=== PATIENT | female | born 1955 | race Caucasian/White ===

== ENCOUNTER 2020-02-09 14:34 | Outpatient (CLI) | payer MEDICARE, SELFPAY ==
--- NOTE | ~2020-02-09 | CT_ITS ---
EXAMINATION: CT abdomen pelvis wo con EXAM DATE: 02/09/2020 14:59 INDICATION: Abdominal pain. TECHNIQUE: Spiral CT of the abdomen and pelvis was performed without contrast. Axial, coronal and s agittal images were reviewed. The dose-length product (DLP) for this examination was 169.48 mGy-cm. The exposure was tailored according to patient size (auto mA exposure control), and iterative recons truction (ASIR) was used as additional dose reduction technique. Comparison is made to prior examinat ion from 08/09/2003. FINDINGS: The liver, spleen, adrenal glands and pancreas are unremarkable. There are cholecystectom y clips. Right kidney midpole hilar calcification measuring 7 x 3 mm, probably nephrolithiasis. There is no hydronephrosis. The uterus is not identified and has likely been surgically resected. The abel dder is collapsed at time of imaging limiting evaluation. There is no retroperitoneal or pelvic lymp hadenopathy. There is mild scattered arteriosclerotic disease. The appendix is normal. The stomach and small bowel are unremarkable. There is expected amount of c olonic stool. No free intraperitoneal gas. The heart is normal in size. There is trace pericardia l effusion. The lung bases are unremarkable. There are no osteoblastic or osteolytic lesions identi fied. IMPRESSION: 1. No acute intra-abdominal findings. 2. Right nephrolithiasis. Reviewed, dictated and finalized at location A. [facility]
== END 2020-02-09 14:35 | disposition home or self-care (01) ==
LOC: ANHIMG 14:43
PROVIDERS: PCP Family Medicine; Visit Provider Internal Medicine Gastroenterology
DX: R10.9 Unspecified abdominal pain (principal); N20.0 Calculus of kidney
CPT/HCPCS: 74176

== ENCOUNTER 2020-02-12 01:53 | Outpatient (CLI) | payer MEDICARE, SELFPAY ==
[2020-02-12 20:00] LABS: SARS-CoV-2 RNA PCR Negative
== END 2020-02-12 01:54 | disposition home or self-care (01) ==
LOC: ANHCOVIDDT 01:54
PROVIDERS: PCP Family Medicine; Visit Provider Internal Medicine Gastroenterology
DX: Z01.818 Encounter for other preprocedural examination (principal); Z20.828 Contact with and (suspected) exposure to other viral communicable diseases
CPT/HCPCS: 87635; C9803; U0003

== ENCOUNTER → 2020-02-15 08:08 | Day surgery (SDC) | payer MEDICARE, SELFPAY ==
[2020-02-08 14:57] VITALS: BMI 17.5
--- NOTE | 2020-02-15 08:30 | WPDANESEPPF ---
Anes - Initial Pre Proc Eval Procedure: Operation Date: 02/15/20 10:00 Proposed Procedures p Esophagogastroduodenoscopy - Aakash Hays MD Date/Time: 02/15/20 08:30 Surgeon: Aakash Hays MD Pre Op Diagnosis: Dysphagia Patient Data Age: 64 Gender: F Height: 1.57 m Weight: 43.5 kg Allergies Allergy/AdvReac Type Severity Reaction Status Date / Time Sulfa (Sulfonamide Allergy Intermediate Itching Verified 02/08/20 14:56 Antibiotics) Penicillins Allergy Mild Hives Verified 02/08/20 14:56 adhesive tape Allergy Unknown Blister Verified 02/08/20 14:56 erythromycin base Allergy Unknown Nausea Verified 02/08/20 14:56 levofloxacin Allergy Unknown Hives Verified 02/08/20 14:56 prednisone AdvReac Unknown DOUBLE Verified 02/08/20 14:56 VISION WITH CORTICOSTEROIDS promethazine AdvReac Unknown Hallucinati Verified 02/08/20 15:10 ng Contrast Media Allergy Unknown Hives / Uncoded 02/08/20 14:56 Red Face Home Medications Medication Instructions Recorded Confirmed Type citalopram [Celexa] 40 mg PO DAILY 02/08/20 02/08/20 History Patient hx anesthesia problems: none Family hx anesthesia problems: none PMFSH Past Medical History Medical History (Updated 02/15/20 @ 08:34 by Iftikhar Nolen MD) Anxiety Chronic pancreatitis Family History Family History (System 02/08/20 @ 11:03 by Bernadette Bennett) Father Hypertension Mother Family history of malignant neoplasm of breast in first degree relative Social History Social History (System 02/08/20 @ 11:03 by Bernadette Bennett) Smoking status: Never smoker Alcohol intake: unknown Substance use: unknown Substance use type: does not use Living arrangements: with family Spiritual care concerns: No Anes - Eval Final PreProcedure Day of Procedure 02/15/20 08:30 Patient weight: cachectic Heart: regular rate and rhythm Lungs: clear to auscultation and normal air movement Airway: Mallampati scale class II Neurological: alert and oriented Last oral intake: >/= 8 hours ASA classification: III Emergent: no Anesthetic plan: proceed Anesthesia type and monitoring: general GIVS Informed Consent: The patient's anesthetic plan and its attendant risks and benefits were discussed with the patient/family/POA. Questions were solicited and answers provided to the satisfaction of the patient/family/POA.
[2020-02-15 09:14] VITALS: BP 124/58; PULSE 73; RESP 16; TEMP 36.1; O2SAT 100
--- NOTE | 2020-02-15 09:29 | WPDGICN ---
Assessment and Plan Assessment and plan (1) Chronic pancreatitis: Code(s): K86.1 - Other chronic pancreatitis Status: Acute Assessment and Plan: Patient has a history of chronic pancreatitis. Apparently has a history of a sphincterotomy. Symptoms appear to improve on Creon however she cannot afford this medication pancreatic enzymes would be beneficial if there is a way for her to obtain. (2) Dysphagia: Code(s): R13.10 - Dysphagia, unspecified Status: Acute Assessment and Plan: Patient has difficulty swallowing she reports in the summer had esophageal web in gastritis. plan for EGD to assess for recurrent narrowing of the esophagus. (3) LUQ abdominal pain: Code(s): R10.12 - Left upper quadrant pain Status: Acute Assessment and Plan: Patient has left upper quadrant pain worse with eating but better with Creon suggesting pancreatitis. Agree with continuing proton pump inhibitor because of history of GE reflux. Plan is for EGD at this S and exclude gastritis or ulcer disease. (4) GERD (gastroesophageal reflux disease): Code(s): K21.9 - Gastro-esophageal reflux disease without esophagitis Status: Acute Assessment and Plan: Patient has a history of GE reflux status post fundoplication which was revised in 2017. Because of her dysphagia and ongoing pain an EGD will be performed. Further recommendations will be given after endoscopy. GI Consult Note Consult date/time: 02/15/20 09:29 HPI: Shae South is a 64 year old female Presents for evaluation of difficulty swallowing and left upper quadrant pain. Patient has a rather extensive past medical history. She complains of severe left upper quadrant pain described as burning after eating somewhat severe were symptoms over the last 6 months. She also complains of difficulty swallowing. Will food will hang up in the mid substernal portion of the chest this happens more often with solids than liquids. She denies any heartburn. Her past medical history is significant that in March of 2000 had apparently had a perforation of some sort after an ERCP apparently had a sphincterotomy. She is known since 2007 to have had a acid reflux fundoplication which required revision twice most recently 2016. She has an ongoing history of GE reflux. Previous endoscopy performed elsewhere in the summer we revealed gastritis and a distal esophageal web. Patient has been prescribed Creon she states this helps her pain however she does not take it because it is too expensive. At home murmur medications include Protonix 40 mg p.o. b.i.d. supplement with Carafate. She also takes Celexa and Benadryl. Her family history is noncontributory. Patient presents today for EGD to assess swallowing difficulty in left upper quadrant abdominal pain. Review of Systems Review of Systems: All systems reviewed & are unremarkable except as noted in HPI and below PMFSH Past Medical History Medical History Anxiety Chronic pancreatitis Family History Family History (System 02/08/20 @ 11:03 by Bernadette Bennett) Father Hypertension Mother Family history of malignant neoplasm of breast in first degree relative Social History Social History (System 02/08/20 @ 11:03 by Bernadette Bennett) Smoking status: Never smoker Alcohol intake: unknown Substance use: unknown Substance use type: does not use Living arrangements: with family Spiritual care concerns: No Meds Home Medications and Allergies Home Medications Medication Instructions Recorded Confirmed Type citalopram [Celexa] 40 mg PO DAILY 02/08/20 02/15/20 History alprazolam 0.25 mg PO PRN PRN 02/15/20 02/15/20 History zolpidem 10 mg PO HS 02/15/20 02/15/20 History Allergies Allergy/AdvReac Type Severity Reaction Status Date / Time Sulfa (Sulfonamide Allergy Intermediate Itc
[2020-02-15] MEDS: LACTATED RINGERS 1,000 ML 150 ML IV CONT (09:33)
[2020-02-15] MEDS: BENZOCAINE (*SP) 60 ML SPRAY CAN (HURRICAINE) 1 SPRAY MUCOUS MEM (09:40)
[2020-02-15] MEDS: SIMETHICONE ORAL SUSPENSION 20 MG/0.3 ML 30 ML BOTTLE 0.6 ML IRRIGATION (09:42)
[2020-02-15 09:48] VITALS: BP 78/41; PULSE 71; RESP 22; O2SAT 92
[2020-02-15 09:58] VITALS: BP 84/44; PULSE 67; RESP 20; O2SAT 98
[2020-02-15 10:08] VITALS: BP 101/67; PULSE 67; RESP 20; O2SAT 98
== END ==
PROVIDERS: PCP Family Medicine; Visit Provider Internal Medicine Gastroenterology
PROC: 0DJ08ZZ Inspection of Upper Intestinal Tract, Via Natural or Artificial Opening Endoscopic (ICD-10-PCS; CPT 43235; principal; 2020-02-15 10:00)
DX: R13.10 Dysphagia, unspecified (principal); K21.9 Gastro-esophageal reflux disease without esophagitis; F41.9 Anxiety disorder, unspecified; K86.1 Other chronic pancreatitis; R64 Cachexia; Z68.1 Body mass index [BMI] 19.9 or less, adult; R10.12 Left upper quadrant pain; Z98.84 Bariatric surgery status
CPT/HCPCS: 43239; 43450; 87081; J2704; J7120

== ENCOUNTER 2021-12-21 01:48 | Day surgery (SDC) | payer MEDICARE, SELFPAY ==
[2021-12-15 10:46] VITALS: BMI 17.4
[2021-12-21 10:18] VITALS: BP 125/70; PULSE 74; RESP 18; O2SAT 100
--- NOTE | 2021-12-21 10:27 | WPDHPUPDATE1 ---
History and Physical Update Update Date/Time: 12/21/21 10:27 History and Physical has been reviewed, including an updated exam of the patient. There are NO changes in the patient's condition. Risks, benefits, and alternatives have been discussed and questions answered. Patient agrees to proceed with procedure.
[2021-12-21] MEDS: LACTATED RINGERS 1,000 ML 150 ML IV CONT (10:34)
--- NOTE | 2021-12-21 11:33 | WPDANESEPPF ---
Anes - Initial Pre Proc Eval Procedure: Operation Date: 12/21/21 12:15 Proposed Procedures p Esophagogastroduodenoscopy & Colonoscopy - Aakash Hays MD Date/Time: 12/21/21 11:33 Surgeon: Aakash Hays MD Pre Op Diagnosis: iron deficient anemia Patient Data Age: 66 Gender: F Height: 1.57 m Weight: 43.7 kg Allergies Allergy/AdvReac Type Severity Reaction Status Date / Time Iodinated Contrast Media Allergy Severe Swelling Verified 12/21/21 10:35 of Lip/Tongue/Throat levofloxacin Allergy Severe Swelling Verified 12/15/21 10:51 of Lip/Tongue/Throat adhesive tape Allergy Intermediate Blister Verified 12/15/21 10:51 Penicillins Allergy Intermediate Hives Verified 12/15/21 10:51 Sulfa (Sulfonamide Allergy Intermediate Itching Verified 12/15/21 10:51 Antibiotics) erythromycin base AdvReac Intermediate Nausea Verified 12/15/21 10:51 gabapentin AdvReac Intermediate Nausea and Verified 12/15/21 10:51 Vomiting promethazine AdvReac Intermediate Hallucinati Verified 12/15/21 10:51 ng Contrast Media Allergy Severe Swelling Uncoded 12/15/21 10:51 of Lip/Tongue/Throat Home Medications Medication Instructions Recorded Confirmed Type citalopram 40 mg tablet (Celexa) 40 mg PO DAILY 02/08/20 12/15/21 History sodium sul 1.479 gram-potas ch See Rx Instructions PO PER PKG DIR 11/29/21 12/15/21 Rx 0.188 gram-magnes sul 0.225 gram #24 tabs tablet (Sutab) albuterol sulfate 90 mcg/actuation 2 inh inhalation Q4H PRN Shortness 12/15/21 12/15/21 History aerosol inhaler Of Breath Or Wheezing alprazolam 0.5 mg tablet 0.25 mg PO QID PRN Anxiety 12/15/21 12/15/21 History diphenhydramine HCl 25 mg capsule 50 mg PO HS PRN Allergy Symptoms 12/15/21 12/15/21 History (Benadryl) doxepin 6 mg tablet 6 mg PO HS 12/15/21 12/15/21 History ibuprofen 800 mg tablet 800 mg PO Q6H PRN Pain 12/15/21 12/15/21 History lidocaine 5 % topical patch 1 patch topical Q8H PRN Pain 12/15/21 12/15/21 History ondansetron 8 mg disintegrating 8 mg PO Q8H PRN Nausea 12/15/21 12/15/21 History tablet pantoprazole 40 mg tablet,delayed 40 mg PO DAILY 12/15/21 12/15/21 History release prednisone 10 mg tablets in a dose 0 mg PO PER PKG DIR 12/15/21 12/15/21 History pack umeclidinium 62.5 mcg-vilanterol 2 inh inhalation QAM 12/15/21 12/15/21 History 25 mcg/actuation powdr for inhalation (Anoro Ellipta) Patient hx anesthesia problems: none Family hx anesthesia problems: none Results Review: All pre-operative results and documents have been reviewed as part of the pre-operative evaluation. [facility] Past Medical History Medical History Anxiety Chronic pancreatitis Family History Family History Father Hypertension Mother Family history of malignant neoplasm of breast in first degree relative Social History Social History Smoking packs per day: 0.5 Smoking cigarettes per day: 10.0 Years smoked: 30 Smoking pack-years: 15.00 Smoking status: Former smoker Alcohol intake: unknown Substance use: never Substance use type: does not use Living arrangements: with family Spiritual care concerns: No Anes - Eval Final PreProcedure Day of Procedure 12/21/21 11:33 Patient weight: normal Heart: regular rate and rhythm Lungs: clear to auscultation Airway: Mallampati scale class II Neurological: alert and oriented Last oral intake: >/= 8 hours ASA classification: III Emergent: no Anesthetic plan: proceed Anesthesia type and monitoring: general GIVS and standard monitoring Results Review: All pre-operative results and documents have been reviewed as part of the pre-operative evaluation. Informed Consent: The patient's anesthetic plan and its attendant risks and benefits were discussed with deven
--- NOTE | 2021-12-21 12:32 | SUR.OPER ---
EGD: [id number] COLON START: 1242
[2021-12-21 13:02] VITALS: BP 114/63; PULSE 71; RESP 19; O2SAT 100
[2021-12-21 13:12] VITALS: BP 121/77; PULSE 69; RESP 14; O2SAT 100
[2021-12-21 13:22] VITALS: BP 136/78; PULSE 66; RESP 16; O2SAT 100
== END 2021-12-21 13:30 | disposition home or self-care (01) ==
PROVIDERS: Visit Provider Internal Medicine Gastroenterology
PROC: 0DJ08ZZ Inspection of Upper Intestinal Tract, Via Natural or Artificial Opening Endoscopic (ICD-10-PCS; CPT 43235; principal; 2021-12-21 12:15)
DX: D50.9 Iron deficiency anemia, unspecified (principal); Z98.84 Bariatric surgery status; F41.9 Anxiety disorder, unspecified; Z79.51 Long term (current) use of inhaled steroids; Z87.891 Personal history of nicotine dependence
CPT/HCPCS: 45378; 43239; 88305; J2704; J7120

== ENCOUNTER 2022-06-21 14:47 | Outpatient (CLI) | payer MEDICARE, SELFPAY ==
--- NOTE | ~2022-06-21 | CT_ITS ---
EXAMINATION: CT abdomen pelvis wo con DATE: 06/21/2022 15:09 INDICATION: Left upper quadrant abdominal pain. TECHNIQUE: Computed tomography (CT) of the abdomen and pelvis was performed without intravenous contr ast. Automated exposure control and iterative reconstruction technique were employed. The dose-length product was 172.10 mGy-cm. COMPARISON: CT abdomen and pelvis 02/09/2020 FINDINGS: The visualized portions of the lung bases demonstrate mild atelectasis and mild chronic anthony g disease. No pleural effusion. The heart size is normal. There is a small pericardial effusion. Ther e is a small sliding hiatal hernia. The liver is normal. There are changes of cholecystectomy. The sp nicole is normal. There are changes of antrectomy and gastrojejunostomy. There is marked distention of the stomach. There is distention of the proximal duodenum with transition point at the midline. The p ancreas, adrenal glands, and right kidney are normal. There is a 2 mm stone in left kidney. The appen nayana is not visualized. There are no pathologically enlarged lymph nodes. There is no free intraperito lizbeth fluid. There are changes of anterior and posterior fusion procedures at L4-L5. There is a chroni c compression fracture of L2 with changes of vertebroplasty. There are compression fractures of T10 a nd T11 with 1/5 loss of height. IMPRESSION: 1. Antrectomy and gastrojejunostomy with marked distention of the stomach. 2. Small sliding hiatal hernia. 3. Distention of the proximal duodenum, which may be seen with SMA syndrome. 4. Small pericardial effusion. 5. Age-indeterminate compression fractures of T10 and T11, new from 02/09/2020. Reviewed, dictated and finalized at location E.
[2022-06-21 15:40] LABS: Basophils Absolute Auto 0.1 K/mm3 (0.0-0.1); Basophils Percent Auto 1.1 % (0.2-1.2); Eosinophils Percent Auto 0.1 % (0-4.4); Hematocrit 37.5 % (37.0-47.0); Immature Granulocyte Absolute 0.05 K/mm3 (0.00-0.031); Immature Granulocyte Percent A 0.6 % (0-0.5); Lymphocytes Absolute Auto 1.73 K/mm3 (0.9-3.2); Lymphocytes Percent Auto 22.1 % (18.3-44.2); Mean Corpuscular HGB Conc 29.3 g/dl (32-36); Mean Corpuscular Hemoglobin 33.4 pg (26-34); Mean Platelet Volume 10.2 fl (7.4-10.4); Monocytes Absolute Auto 0.4 K/mm3 (0.1-0.6); Monocytes Percent Auto 5.5 % (2.6-8.5); Neutrophils Absolute Auto 5.5 K/mm3 (1.3-6.7); Neutrophils Percent Auto 70.6 % (45.5-73.1); Nucleated Red Blood Cells Perc 0.3 % (0.0-0.2); Platelet Count Result 304 k/mm3 (150-375); Red Blood Count 3.29 M/mm3 (4.2-5.4); Red Cell Distribution Width 17.9 % (11.5-14.5); White Blood Count 7.8 K/mm3 (4.5-10.0)
[2022-06-21 15:47] LABS: Alanine Aminotransferase 17 U/L (6-35); Albumin Level 3.7 g/dL (3.5-5.1); Alkaline Phosphatase 70 U/L (38-126); Amylase 78 U/L (30-110); Aspartate Amino Transferase 21 U/L (14-36); Bilirubin,Total 0.4 mg/dL (0.2-1.3); Lipase 260 U/L (23-300)
[2022-06-21 16:24] LABS: Anisocytosis 1+ (NORMAL); Hypochromasia 1+ (NORMAL); Macrocytosis 1+ (NORMAL); Ovalocytes 1+ (NORMAL); Platelet Estimate Adequate (Adequate); Schistocytes None Seen (NORMAL)
== END 2022-06-21 14:48 | disposition home or self-care (01) ==
PROVIDERS: Visit Provider Internal Medicine Gastroenterology
DX: K86.1 Other chronic pancreatitis (principal); K44.9 Diaphragmatic hernia without obstruction or gangrene; I31.39 Other pericardial effusion (noninflammatory); M48.54XA Collapsed vertebra, not elsewhere classified, thoracic region, initial encounter for fracture; Z90.3 Acquired absence of stomach [part of]; Z98.890 Other specified postprocedural states
CPT/HCPCS: 36415; 74176; 80076; 82150; 83690; 85025

== ENCOUNTER 2022-07-09 09:33 | Day surgery (SDC) | payer MEDICARE, SELFPAY ==
[2022-06-25 09:50] VITALS: BMI 17.4
[2022-06-27 10:21] VITALS: BMI 16.1
--- NOTE | 2022-07-09 09:01 | WPDANESEPPF ---
Anes - Initial Pre Proc Eval Procedure: Operation Date: 07/09/22 11:30 Proposed Procedures p Esophagogastroduodenoscopy - Aakash Hays MD Date/Time: 07/09/22 09:01 Surgeon: Aakash Hays MD Pre Op Diagnosis: AB.Findings on Diagnostic Imaging, LUQ Pain Patient Data Age: 66 Gender: F Height: 1.57 m Weight: 40 kg Allergies Allergy/AdvReac Type Severity Reaction Status Date / Time Iodinated Contrast Media Allergy Severe Swelling Verified 07/09/22 10:59 of Lip/Tongue/Throat levofloxacin Allergy Severe Swelling Verified 07/09/22 10:59 of Lip/Tongue/Throat adhesive tape Allergy Intermediate Blister Verified 07/09/22 10:59 Penicillins Allergy Intermediate Hives Verified 07/09/22 10:59 Sulfa (Sulfonamide Allergy Intermediate Itching Verified 07/09/22 10:59 Antibiotics) erythromycin base AdvReac Intermediate Nausea Verified 07/09/22 10:59 gabapentin AdvReac Intermediate Nausea and Verified 07/09/22 10:59 Vomiting metoclopramide [From Reglan] AdvReac Intermediate Other Verified 07/09/22 10:59 promethazine AdvReac Intermediate Hallucinati Verified 07/09/22 10:59 ng Contrast Media Allergy Severe Swelling Uncoded 07/09/22 10:59 of Lip/Tongue/Throat Home Medications Medication Instructions Recorded Confirmed Type citalopram 40 mg tablet (Celexa) 40 mg PO DAILY 02/08/20 06/27/22 History albuterol sulfate 90 mcg/actuation 2 inh inhalation Q4H PRN Shortness 12/15/21 06/27/22 History aerosol inhaler Of Breath Or Wheezing alprazolam 0.5 mg tablet 0.25 mg PO QID PRN Anxiety 12/15/21 06/27/22 History diphenhydramine HCl 25 mg capsule 50 mg PO HS PRN Allergy Symptoms 12/15/21 06/27/22 History (Benadryl) ibuprofen 800 mg tablet 800 mg PO Q6H PRN Pain 12/15/21 06/27/22 History lidocaine 5 % topical patch 1 patch topical Q8H PRN Pain 12/15/21 06/27/22 History ondansetron 8 mg disintegrating 8 mg PO Q8H PRN Nausea 12/15/21 06/27/22 History tablet pantoprazole 40 mg tablet,delayed 40 mg PO DAILY #90 tabs 05/25/22 06/27/22 Rx release acarbose 25 mg tablet 25 mg PO TID 06/13/22 06/27/22 History oxycodone-acetaminophen 5 mg-325 1 tablet PO Q6H PRN Pain, Severe 06/13/22 06/27/22 History mg tablet (Percocet) fluticasone fur. 100 mcg-umeclid inhalation 06/27/22 06/27/22 History 62.5 mcg-vilant 25 mcg inhalat.powder (Trelegy Ellipta) zaleplon 5 mg capsule 5 mg PO HS 06/27/22 06/27/22 History Patient hx anesthesia problems: none Family hx anesthesia problems: none Results Review: All pre-operative results and documents have been reviewed as part of the pre-operative evaluation. [facility] Past Medical History Medical History (Updated 07/09/22 @ 09:03 by Gabe Jay DO) Anxiety Asthma Chronic pancreatitis Chronic, continuous use of opioids opiates GERD (gastroesophageal reflux disease) ANTONIO (iron deficiency anemia) SLE (systemic lupus erythematosus related syndrome) Surgical History Surgical History (Updated 07/09/22 @ 09:03 by Gabe Jay DO) History of Camille fundoplication History of partial gastrectomy Family History Family History Father Hypertension Mother Family history of malignant neoplasm of breast in first degree relative Social History Social History Smoking packs per day: 0.05 Smoking cigarettes per day: 1.0 Years smoked: 30 Smoking pack-years: 1.50 Smoking status: Former smoker Tobacco type: cigarettes Alcohol intake: never Substance use: never Substance use type: does not use Living arrangements: alone Spiritual care concerns: No Anes - Eval Final PreProcedure Day of Procedure 07/09/22 09:01 Patient weight: normal Heart: regular rate and rhythm Lungs: clear to auscultation and normal air movement Airway: Mallampati scale class II Neurological: alert and or
--- NOTE | 2022-07-09 10:53 | PM.HPGS ---
History of Present Illness History of Present Illness Consent: Risks, benefits, and alternatives have been discussed and questions answered. Patient agrees to proceed with procedure. Chief complaint: AB.Findings on Diagnostic Imaging, LUQ Pain Narrative: Shae South is a 66 year old female Presents for EGD. Patient has left upper quadrant pain. She complains of excess gas and flatus. Along with belching. She has a history of rather significant extensive surgery on the pancreas in upper GI tract. Previously felt to have chronic pancreatitis on this basis. After being seen in the office [address] scan imaging was performed which revealed dilatation of the stomach and proximal duodenum. For this reason patient presents today for EGD. Patient has been on a soft to liquid diet in the to has felt some improvement on this. Family history is noncontributory. Review of Systems Review of Systems: Review of systems noncontributory. [facility] Past Medical History Medical History (Updated 07/09/22 @ 09:03 by Gabe Jay DO) Anxiety Asthma Chronic pancreatitis Chronic, continuous use of opioids opiates GERD (gastroesophageal reflux disease) ANTONIO (iron deficiency anemia) SLE (systemic lupus erythematosus related syndrome) Surgical History Surgical History (Updated 07/09/22 @ 09:03 by Gabe Jay DO) History of Camille fundoplication History of partial gastrectomy Family History Family History Father Hypertension Mother Family history of malignant neoplasm of breast in first degree relative Social History Social History Smoking packs per day: 0.05 Smoking cigarettes per day: 1.0 Years smoked: 30 Smoking pack-years: 1.50 Smoking status: Former smoker Tobacco type: cigarettes Alcohol intake: never Substance use: never Substance use type: does not use Living arrangements: alone Spiritual care concerns: No Meds Home Medications and Allergies Home Medications Medication Instructions Recorded Confirmed Type citalopram 40 mg tablet (Celexa) 40 mg PO DAILY 02/08/20 06/27/22 History albuterol sulfate 90 mcg/actuation 2 inh inhalation Q4H PRN Shortness 12/15/21 06/27/22 History aerosol inhaler Of Breath Or Wheezing alprazolam 0.5 mg tablet 0.25 mg PO QID PRN Anxiety 12/15/21 06/27/22 History diphenhydramine HCl 25 mg capsule 50 mg PO HS PRN Allergy Symptoms 12/15/21 06/27/22 History (Benadryl) ibuprofen 800 mg tablet 800 mg PO Q6H PRN Pain 12/15/21 06/27/22 History lidocaine 5 % topical patch 1 patch topical Q8H PRN Pain 12/15/21 06/27/22 History ondansetron 8 mg disintegrating 8 mg PO Q8H PRN Nausea 12/15/21 06/27/22 History tablet pantoprazole 40 mg tablet,delayed 40 mg PO DAILY #90 tabs 05/25/22 06/27/22 Rx release acarbose 25 mg tablet 25 mg PO TID 06/13/22 06/27/22 History oxycodone-acetaminophen 5 mg-325 1 tablet PO Q6H PRN Pain, Severe 06/13/22 06/27/22 History mg tablet (Percocet) fluticasone fur. 100 mcg-umeclid inhalation 06/27/22 06/27/22 History 62.5 mcg-vilant 25 mcg inhalat.powder (Trelegy Ellipta) zaleplon 5 mg capsule 5 mg PO HS 06/27/22 06/27/22 History Allergies Allergy/AdvReac Type Severity Reaction Status Date / Time Iodinated Contrast Media Allergy Severe Swelling Verified 06/27/22 10:09 of Lip/Tongue/Throat levofloxacin Allergy Severe Swelling Verified 06/27/22 10:09 of Lip/Tongue/Throat adhesive tape Allergy Intermediate Blister Verified 06/27/22 10:09 Penicillins Allergy Intermediate Hives Verified 06/27/22 10:09 Sulfa (Sulfonamide Allergy Intermediate Itching Verified 06/27/22 10:09 Antibiotics) erythromycin base AdvReac Intermediate Nausea Verified 06/27/22 10:09 gabapentin AdvReac Intermediate Nausea and Verified 06/27/22 10:09 Vomiting metoclopramide [Fro
[2022-07-09 11:05] VITALS: BP 98/54; PULSE 64; RESP 16; TEMP 36.7; O2SAT 100; BMI 16.5
[2022-07-09] MEDS: LACTATED RINGERS 1,000 ML 150 ML IV CONT (11:30)
[2022-07-09 11:54] VITALS: BP 88/53; PULSE 85; RESP 16; O2SAT 100
[2022-07-09 12:04] VITALS: BP 102/66; PULSE 59; RESP 16; O2SAT 99
[2022-07-09 12:14] VITALS: BP 111/67; PULSE 60; RESP 18; O2SAT 99
--- NOTE | 2022-07-09 12:38 | WPDANESPN ---
Anes - Prog Note Post-Op Date/Time: 07/09/22 12:38 Cardiovascular status: normal Respiratory status: normal Airway patency: baseline Mental status: baseline Post-Op hydration status: normal Vital Signs: Last Vital Signs Temp 36.7 C 07/09/22 11:05 Pulse 60 07/09/22 12:14 Resp 18 07/09/22 12:14 BP 111/67 07/09/22 12:14 Pulse Ox 99 07/09/22 12:14 O2 Del Method Room Air 07/09/22 12:14 Pain Score (VAS): 0 I/O: Intake & Output 07/08/22 07/09/22 07/09/22 23:59 07:59 15:59 Intake Total 250 Balance 250 Post-procedural complaints: none Patient Feedback: Patient satisfied with anesthetic care. Other Findings: Patient vital signs back to baseline. Patient denies nausea and vomiting. Patient's pain under control. Patient OK for discharge.
== END 2022-07-09 12:31 | disposition home or self-care (01) ==
PROVIDERS: Visit Provider Internal Medicine Gastroenterology
PROC: 0DJ08ZZ Inspection of Upper Intestinal Tract, Via Natural or Artificial Opening Endoscopic (ICD-10-PCS; CPT 43235; principal; 2022-07-09 11:30)
DX: R93.89 Abnormal findings on diagnostic imaging of other specified body structures (principal)
CPT/HCPCS: 43239

== ENCOUNTER 2022-07-20 09:31 | Outpatient (CLI) | payer MEDICARE, SELFPAY ==
--- NOTE | ~2022-07-20 | XR_ITS ---
EXAMINATION: XR UGI w small bowel DATE: 07/20/2022 12:10 INDICATION: Postprandial abdominal pain and bloating. Abnormal findings on diagnostic exam. Status po st gastrectomy. TECHNIQUE: The patient drank thin barium. Conventional supine abdomen radiographs and fluoroscopic sp ot radiographs of the esophagus, stomach and small bowel immediately distal to the gastrojejunal anas tomosis were obtained. Additional overhead radiographs were obtained during the transit through the s mall bowel. Spot fluoroscopic images of the small bowel were obtained upon contrast reaching the cec um. Fluoroscopy exposure time was minutes. A total of 7 overhead radiographs and an 114 fluoroscopic images were recorded. COMPARISON: None. FINDINGS: The esophagus is normal without mass or stricture. Esophageal motility is normal. There is a small sl iding-type hiatal hernia with gastroesophageal junction proximally 4 cm above the level of the diaphr agm with adjacent small surgical clip at the thoracic outlet. Postoperative change of prior partial g astrectomy. There is a patent gastrojejunal anastomosis with rapid transit of contrast across the kenisha stomosis into the small bowel. There was no gastroesophageal reflux with provocative maneuvers. Trans it time from the stomach to proximal colon was approximately 90 minutes. There is normal caliber and mucosal fold pattern throughout the small bowel. Terminal ileum is normal. No tethering or abnormal mass effect observed upon the small bowel with real-time fluoroscopy. Cholecystectomy clips in right upper quadrant. L2 compression fracture with change of prior vertebroplasty. L4-L5 instrumented anter ior and posterior spinal fusion with interbody fusion device and bilateral vertical génesis and pedicle s crew fixation. IMPRESSION: 1. Postoperative change of prior gastrectomy with no evident strictures identified at the gastrojejun al anastomosis. 2. Small sliding-type hiatal hernia. No observed gastroesophageal reflux with provocative maneuvers. 3. No evident bowel obstruction with normal caliber of the small bowel throughout and normal transit time of 90 minutes to the colon. Reviewed, dictated and finalized at location A. IMPRESSION: 1. Postoperative change of prior gastrectomy with no evident strictures identif ied at the gastrojejunal anastomosis. 2. Small sliding-type hiatal hernia. No observed gastroesophageal reflux with p rovocative maneuvers. 3. No evident bowel obstruction with normal caliber of the small bowel througho ut and normal transit time of 90 minutes to the colon.
== END 2022-07-20 09:32 | disposition home or self-care (01) ==
PROVIDERS: Visit Provider Internal Medicine Gastroenterology
DX: R91.8 Other nonspecific abnormal finding of lung field (principal); K44.9 Diaphragmatic hernia without obstruction or gangrene
CPT/HCPCS: 74240; 74248

== ENCOUNTER 2022-09-27 15:24 | Outpatient (CLI) | payer MEDICARE, SELFPAY ==
--- NOTE | ~2022-09-27 | MR_ITS ---
EXAMINATION: MR thoracic spine wo con DATE: 09/27/2022 16:03 INDICATION: Posttraumatic mid to low back pain TECHNIQUE: Magnetic resonance imaging (MRI) of the thoracic spine was performed without intravenous c ontrast. Sagittal localizer T1-weighted FSE of the cervicothoracic spine was obtained. Thoracic spine sequences included sagittal T2-weighted FSE, sagittal T1-weighted SE, Sagittal T2-weighted FS FSE, a nd axial T2-weighted FSE. COMPARISON: None FINDINGS: Alignment is normal. Chronic superior endplate compression fractures at T9, T10, T11 and L2 with 20% anterior to central vertebral body height loss and with change of prior vertebroplasty at L2. All makayla ear unchanged when compared with CT dated 06/21/2022. T1 and T2 hyperintense hemangioma at T6. No path ologic marrow replacing process. Disc heights are normal. Small central disc protrusion at T2-T3 and T4-T5 and minimal disc bulges at T8-T9 through T10-T11, all resulting in only negligible central moncho l stenosis. Mild to moderate multilevel bilateral thoracic facet osteoarthritis which contributes to mild neural foraminal stenosis at a few levels primarily in the lower thoracic spine from T8-T9 to T1 0-T11. There is normal spinal cord signal. The conus terminates at L1. Paravertebral soft tissues are unremarkable. IMPRESSION: 1. No interval change in chronic mild compression fractures at T9-T11 and with change of prior verteb roplasty at L2. Line 2. Mild thoracic spondylosis. Reviewed, dictated and finalized at location A. IMPRESSION: 1. No interval change in chronic mild compression fractures at T9-T11 and with change of prior vertebroplasty at L2. Line 2. Mild thoracic spondylosis.
== END 2022-09-27 15:25 ==
LOC: MICIMG 15:25
PROVIDERS: PCP Physician Assistant; Visit Provider Physician Assistant
DX: M80.08XA Age-related osteoporosis with current pathological fracture, vertebra(e), initial encounter for fracture (principal); M47.814 Spondylosis without myelopathy or radiculopathy, thoracic region
CPT/HCPCS: 72146

== ENCOUNTER 2023-08-21 15:24 | Emergency (ER) | payer MEDICARE, SELFPAY ==
--- NOTE | ~2023-08-21 | CT_ITS ---
CT abdomen pelvis wo con Ordering provider: Talon Clifford MD History: 67 years Female with . R flank pain . Comparison: June 21, 2022 Technique: CT abdomen and pelvis without IV and without oral contrast. Automated exposure control and iterative reconstruction technique were employed. The dose-length product was 175.28 mGy-cm. Findings: VISUALIZED LOWER CHEST: Dependent atelectatic changes. UPPER ABDOMINAL ORGANS: Liver: Normal. Gallbladder: Status post cholecystectomy. Spleen: Normal. Stomach/duodenum: Slightly thickened wall of the stomach. Further evaluation advised. Postoperative c hanges in the area of the stomach. Pancreas: Normal. Adrenals: Normal. Kidneys: Tiny Stone seen in the right kidney midpole. The left kidney is unremarkable. Both ureters a re unremarkable. PELVIC ORGANS: The bladder is normal. BOWEL AND MESENTERY: Colon: Slightly thickened wall of the rectum and sigmoid colon thickened wall of the cecum. Fecal mat erial is seen in the colon. No evidence of appendicitis. Small Bowel: Normal. No obstruction. Peritoneum/mesentery: No free air or free fluid. No mesenteric lymphadenopathy. RETROPERITONEUM: Mild atheromatous disease of the abdominal aorta. No retroperitoneal lymphadenopat hy. MUSCULOSKELETAL: Superficial soft tissues: The superficial soft tissues are normal. Bones: Age appropriate degenerative changes of the spine. Postoperative changes at the level of L4-L5 , with vertebroplasty in L2 IMPRESSION: 1. Tiny stone in the right kidney midpole. 2. No definite stones in the left kidney with no hydronephrotic changes or definite ureteric stones bilaterally. 3. Constipation 4. Slightly thickened wall of the stomach. Reviewed, dictated and finalized at location A. IMPRESSION: 1. Tiny stone in the right kidney midpole. 2. No definite stones in the left kidney with no hydronephrotic changes or def inite ureteric stones bilaterally. 3. Constipation 4. Slightly thickened wall of the stomach.
[2023-08-21 15:27] VITALS: BP 113/72; PULSE 108; RESP 18; TEMP 36.4; O2SAT 99
--- NOTE | 2023-08-21 16:18 | ED.FEMALEGU ---
HPI - Female Genitourinary General Chief complaint: Urogenital-Female Stated complaint: UTI Time Seen by Provider: 08/21/23 15:51 History of Present Illness HPI Narrative: Patient is a 67-year-old female who presents to the emergency department this afternoon complaining of dysuria for the past 4 days approximately. Patient admits that she gets frequent UTI and although triage note states the patient is recently for additional antibiotic, she is denying was for me at this time. Patient cannot remember when her last urinary tract infection was. She is also complaining of right flank pain and admits to history of kidney stones. She denies any chest pain or shortness of breath, any abdominal pain, and denies any additional symptoms or concerns at this time. Related Data Home Medications Medication Instructions Recorded Confirmed citalopram 40 mg tablet (Celexa) 40 mg PO DAILY 02/08/20 06/27/22 albuterol sulfate 90 mcg/actuation 2 inh inhalation Q4H PRN Shortness 12/15/21 06/27/22 aerosol inhaler Of Breath Or Wheezing alprazolam 0.5 mg tablet 0.25 mg PO QID PRN Anxiety 12/15/21 06/27/22 diphenhydramine HCl 25 mg capsule 50 mg PO HS PRN Allergy Symptoms 12/15/21 06/27/22 (Benadryl) ibuprofen 800 mg tablet 800 mg PO Q6H PRN Pain 12/15/21 06/27/22 lidocaine 5 % topical patch 1 patch topical Q8H PRN Pain 12/15/21 06/27/22 ondansetron 8 mg disintegrating 8 mg PO Q8H PRN Nausea 12/15/21 06/27/22 tablet acarbose 25 mg tablet 25 mg PO TID 06/13/22 06/27/22 oxycodone-acetaminophen 5 mg-325 1 tablet PO Q6H PRN Pain, Severe 06/13/22 07/09/22 mg tablet (Percocet) fluticasone fur. 100 mcg-umeclid inhalation 06/27/22 62.5 mcg-vilant 25 mcg inhalat.powder (Trelegy Ellipta) zaleplon 5 mg capsule 5 mg PO HS 06/27/22 06/27/22 guaifenesin 600 mg tablet, 600 mg PO Q12H 07/09/22 07/09/22 extended release 12 hr (Mucinex) Allergies Allergy/AdvReac Type Severity Reaction Status Date / Time Iodinated Contrast Media Allergy Severe Swelling Verified 07/09/22 10:59 of Lip/Tongue/Throat levofloxacin Allergy Severe Swelling Verified 07/09/22 10:59 of Lip/Tongue/Throat adhesive tape Allergy Intermediate Blister Verified 07/09/22 10:59 Penicillins Allergy Intermediate Hives Verified 07/09/22 10:59 Sulfa (Sulfonamide Allergy Intermediate Itching Verified 07/09/22 10:59 Antibiotics) erythromycin base AdvReac Intermediate Nausea Verified 07/09/22 10:59 gabapentin AdvReac Intermediate Nausea and Verified 07/09/22 10:59 Vomiting metoclopramide [From Reglan] AdvReac Intermediate Other Verified 07/09/22 10:59 promethazine AdvReac Intermediate Hallucinati Verified 07/09/22 10:59 ng Contrast Media Allergy Severe Swelling Uncoded 07/09/22 10:59 of Lip/Tongue/Throat Review of Systems Review of Systems: All systems are reviewed and are negative unless stated otherwise in the HPI. [facility] Past Medical History Medical History Anxiety Asthma Chronic pancreatitis Chronic, continuous use of opioids opiates GERD (gastroesophageal reflux disease) ANTONIO (iron deficiency anemia) SLE (systemic lupus erythematosus related syndrome) Surgical History Surgical History History of Camille fundoplication History of partial gastrectomy Family History Family History Father Hypertension Mother Family history of malignant neoplasm of breast in first degree relative Social History Social History Smoking packs per day: 0.05 Smoking cigarettes per day: 1.0 Years smoked: 30 Smoking pack-years: 1.50 Smoking status: Former smoker Tobacco type: cigarettes Alcohol intake: never Substance use: never Substance use type: does not use Living arrangements: alone Spiritual care
[2023-08-21 16:51] LABS: Appearance Urine Clear (Clear); Bacteria Urine None Seen /hpf; Bilirubin Urine Negative (Negative); Blood Urine Negative (Negative); Color Urine Dark Yellow (Yellow); Glucose Urine UA Negative (Negative); Hyaline Casts Urine Present /lpf; Ketones Urine Trace mg/dL (Negative); Leukocyte Esterase Ur Trace LEU/UL (Negative); Nitrate Urine Negative (Negative); Non Pathogenic Casts >20; Protein Urine 1+ mg/dL (Negative); RBC Urine 0-2 /hpf (0-2); Specific Grav Ur 1.035 (1.001-1.035); Squamous Epithelial Cell Urine Occasional /hpf (Few)
[2023-08-21 16:51] LABS: Basophils Absolute Auto 0.1 K/mm3 (0.0-0.1); Eosinophils Percent Auto 0.1 % (0-4.4); Hematocrit 42.7 % (37.0-47.0); Hemoglobin 13.1 g/dL (12.0-15.0); Immature Granulocyte Absolute 0.03 K/mm3 (0.00-0.031); Immature Granulocyte Percent A 0.3 % (0-0.5); Lymphocytes Absolute Auto 1.52 K/mm3 (0.9-3.2); Lymphocytes Percent Auto 15.8 % (18.3-44.2); Mean Corpuscular HGB Conc 30.7 g/dl (32-36); Mean Corpuscular Hemoglobin 30.7 pg (26-34); Mean Platelet Volume 10.2 fl (7.4-10.4); Monocytes Absolute Auto 0.3 K/mm3 (0.1-0.6); Monocytes Percent Auto 3.4 % (2.6-8.5); Neutrophils Absolute Auto 7.6 K/mm3 (1.3-6.7); Neutrophils Percent Auto 79.4 % (45.5-73.1); Nucleated Red Blood Cells Perc 0.3 % (0.0-0.2); Platelet Count Result 281 k/mm3 (150-375); Red Blood Count 4.27 M/mm3 (4.2-5.4); Red Cell Distribution Width 17.2 % (11.5-14.5); White Blood Count 9.6 K/mm3 (4.5-10.0)
[2023-08-21 16:52] LABS: Add Urine Microscopic? YES
[2023-08-21] MEDS: SODIUM CHLORIDE 0.9% IV 1,000 ML 999 ML IV CONT (16:56)
[2023-08-21 17:01] LABS: Alanine Aminotransferase 16 U/L (6-35); Albumin Level 4.4 g/dL (3.5-5.1); Alkaline Phosphatase 67 U/L (38-126); Anion Gap 10 mmol/L (4-12); Aspartate Amino Transferase 25 U/L (14-36); Bilirubin,Total 0.7 mg/dL (0.2-1.3); Blood Urea Nitrogen 23 mg/dL (7-17); Calcium 8.8 mg/dL (8.4-10.2); Carbon Dioxide 20 mmol/L (22-30); Chloride 114 mmol/L (98-107); Estimated CRCL calculation 31 ml/min; Estimated Glomerular Filt Rate 55; Glucose 119 mg/dL (65-110); Lactic Acid Reflex 2.3 mmol/L (0.7-2.0); Potassium 3.7 mmol/L (3.4-5.0); Sodium 144 mmol/L (137-145)
[2023-08-21] MEDS: PHENAZOPYRIDINE HCL 100 MG TABLET 200 MG PO (18:45)
[2023-08-21 18:49] VITALS: BP 103/69; PULSE 86; RESP 16; O2SAT 98
[2023-08-21 19:48] LABS: Reflex Lactic Acid Yes or No Add Lactic
== END 2023-08-21 18:56 | disposition home or self-care (01) ==
PROVIDERS: Emergency Provider Emergency Medicine; PCP Family Medicine
DX: N39.0 Urinary tract infection, site not specified (principal); J45.909 Unspecified asthma, uncomplicated; D50.9 Iron deficiency anemia, unspecified; M32.9 Systemic lupus erythematosus, unspecified; K86.1 Other chronic pancreatitis; K21.9 Gastro-esophageal reflux disease without esophagitis; F41.9 Anxiety disorder, unspecified; Z87.891 Personal history of nicotine dependence; Z90.3 Acquired absence of stomach [part of]
CPT/HCPCS: 36415; 74176; 80053; 81001; 83605; 85025; 87086; 87088; 96360; 96361; 99284; A9270; J7030

== ENCOUNTER 2024-04-10 13:44 | Outpatient (CLI) | payer MEDICARE, SELFPAY ==
--- NOTE | ~2024-04-10 | XR_ITS ---
HISTORY: lt shoulder and humerus pain COMPARISON: None TECHNIQUE: 3 views of the left shoulder were performed FINDINGS: No acute or subacute fracture. The glenohumeral and acromioclavicular joint space is maintained The visualized portion of the adjacent left lung is clear. The humeral head is well seated within the glenoid fossa. Well-circumscribed lucencies within the proximal left humerus, suggesting prior hardware. IMPRESSION: No acute fracture or anterior dislocation. Reviewed, dictated and finalized at location A. R SCHOOL TUTOR
--- NOTE | ~2024-04-10 | XR_ITS ---
HISTORY: lt shoulder and humerus pain COMPARISON: None TECHNIQUE: 2 views of the left humerus were performed FINDINGS: No acute or subacute fracture. Joint spaces are preserved and alignment is maintained. Findings within the proximal left humerus suggesting prior orthopedic hardware, no longer present on the submitted images. Soft tissues are unremarkable without foreign body or significant calcification. Age-appropriate mineralization. IMPRESSION: No acute fracture. Findings suggesting prior hardware placement. Reviewed, dictated and finalized at location A. ILLMENT MAIL CLERK
--- OUTSIDE RECORDS SUMMARY | 2024-04-10 13:54 | XMS_ITS | Continuity of Care Document ---
Author Organization [facility] Address [address] [place] [address] Phone Care Team Providers Care Cell Efficiency Supervisor Name Role Phone Neelam Cardenas MD Unavailable Unavailabl e Allergies, Adverse Reactions, Alerts Substance Reaction Status Criticality Active No Information KETOROLAC TROMETHAMINE Active No In formation levofloxacin Active No Information Sulfa (Sulfonamide Antibiotics) Active No Information Penicillins Active No Information TAPE, OCCLUSIVE ADHESIVE Active No Information Medications Medication Instructions Dosage Effective Dates (start - stop) Status Comments Xanax 0.25 mg tablet take 1 tablet by mouth three times daily as needed - Active Creon 24,000-76,000-120,00 0 unit capsule,delayed release take 2 capsules by oral route 3 times every day with meals and 1 capsule with each snack - Active ferrous sulfate 325 mg (65 mg iron) tablet take 1 tablet by oral route every day 325 MG - Active Protonix 40 mg tablet,delayed release take 1 tablet by oral route every day 40 MG - Active Zofran 4 mg tablet take 1 tablet by mouth every 6-8 hours as needed - Active Benadryl 25 mg capsule take 1 capsule by mouth daily as needed for seasonal allergies - Active Vitamin D2 50,000 unit capsule take 1 capsule by oral route every 2 weeks 60803 UNITS - Active Carafate 1 gram tablet take 1 tablet by mouth once daily - Active doxycycline hyclate 100 mg tablet,delayed release take 1 tablet by mouth once daily - Active Restasis 0.05 % eye drops in a dropperette instill 2 drops by ophthalmic route every 12 hours into both eyes - Active tramadol 50 mg tablet take 1 tablet by oral route every 8 hours as needed 50 MG - Active Advance Directives Directive Yes / No Effective Date File Name No Information Encounters Encounter Description Practice Location Reason(s) For Visit Diagnoses Date Provider Providers Copied on Encounter [facility], [address], [place], [place], [id number] , tel: [phone] Piotr No Information [address], [place], [id number]. tel:[phone] [facility], [address], [place], [place], [id number] , tel: [phone] Piotr No Information [address], [place], [id number]. tel:[phone] [facility], [address], [place], [place], [address] , tel: [phone] Hayden Other chronic pancreatitisGastro-e sophageal reflux disease without esophagitisUnspecifi ed thoracic, thoracolumbar and lumbosacral intervertebral disc disorderGeneralized anxiety disorderOther nonthrombocytopenic purpuraDrug dependence, in remissionSedative hypnotic or anxiolytic dependence [address]. [address], [place], [id number]. tel:[phone] Referring Provider: Neelam Cardenas, [place], [address] . tel:[phone] Family History Family Member Type Diagnosis Age At Onset Sister Problem (finding) malignant neoplasm of t hyroid Sister Problem (finding) Cardiovascular disease Father Problem (finding) depression Sister Problem (finding) myocardial inf arct in first degree female relative less than 65 years of age Daughter Problem (finding) Pneumonia due to infectious organism, unspecified laterality, unspecified part of lung (Cause Of ) Mother Problem (finding) MVA (Cause Of ) 42 Daughter Problem (finding) Premature Maternal grandfather Problem (finding) coronary arteri osclerosis Mother Problem (finding) depression Sister Problem (finding) malignant neop lasm of breast in first degree relative Maternal grandmother Problem (finding) malignant neoplasm of breast in first degree relative Sister Problem (finding) malignant neoplasm of t hyroid Brother Problem (finding) Cardiovascular disease Brother Problem (finding) Myocardial infarction Daughter Problem (finding) suicide Brother Problem (finding) Pericarditis, unspecified chronicity, unspecified type Father Problem (finding) Sepsis due to methicillin resistant Staphylococcus aureus (Cause Of ) 80 Paternal grandfather Problem (finding) Cardiovascular disease Maternal grandmother Problem (finding) MVA (Cause Of D eath) 72 Sister Problem (finding) malignant neop lasm of breast in first degree relative Sister Problem (finding) Hypertrophic cardiomyop athy Paternal grandmother Problem (finding) Cardiovascular disease Brother Problem (finding) Pacemaker Brother Problem (finding) Cardiovascular disease Paternal grandfather Problem (finding) alzheimer's dis ease Mother Problem (finding) Mental illness Brother Problem (finding) malignant neoplasm of t hyroid Father Problem (finding) Guillain Storm syndrome Father Problem (finding) hypertension Father Problem (finding) Anxiety Paternal grandmother Problem (finding) stroke (Cause O f ) Brother Problem (finding) myocardial inf arct in 1st degree male relative <55 years Mother Problem (finding) malignant neop lasm of breast in first degree relative Immunizations Vaccine Date Status Comments Tdap administered Source: Source Unspecified Payers Payer name Insurance type Covered alliance party ID Authoriza tielvi(s) [place] [id number] [facility] [id number] Social History Type Description Quantity Date Captured Comments Alcohol Use Details Unknown Caffeine Use Details Unknown Tobacco Use Status No Information Smoking Status No Information Sex Female Chief Complaint And Reason For Visit No Information Reason For Referral Reason For Referral No Information History Of Present Illness Encounter Date Complaint History Of Prese nt Illness No Information Functional Status Date Functional Assessmen t No Information Instructions Date Instruction Additional Infor mation No Information Assessments Type Assessment Date No Information Patient Care Teams Name Effective Dates (start - stop) Status Members No Information
--- OUTSIDE RECORDS SUMMARY | 2024-04-10 13:54 | XMS_ITS | Encounter Summary ---
Author Organization [facility] Address [address] [place] [address] Phone Care Team Providers Care Mail Handler Equipment Operator Name Role Phone Alejandro Yuan MD Unavailable Bharat Rushing MD Primary Care Provider [phone] Devon Peres DO Unavailable [phone] Aakash Hays MD Unavailable [phone] Tom Alfred MD Primary Care Provider Encounter Details Date Type Department Care Team (Late st Contact Info) Description 03/13/2021 Telephone [facility] [address] [place] [address] Devno Peres, DO [address] [place] [address] Social History Tobacco Use Types Packs/Day Years Used Date Smoking Tobacco: Former Cigarettes 0.5 24.3 0 11/08/1979 - 02/26/2004 Smokeless Tobacco: Never Alcohol Use Standard Drinks/Week Comments No 0 (1 standard drink = 0.6 oz pur e alcohol) PHQ-2 Answer Date Recorded Total Score - Questions 1-9 0 11/25 Comments Unknown Sex and Gender Information Value Date Recorded Sex Assigned at Not on file Legal Sex Female 10:46 AM CDT Gender Identity Not on file Sexual Orientation Not on file COVID-19 Exposure Response Date Recorded In the last month, have you been in contact with someone who was confirmed or suspected to have Coronavirus / COVID-19? No / Unsure 03/02/2021 12:24 PM [employer] INSPECTOR documented as of this encounter Miscellaneous Notes * Telephone Encounter - Mary Apodaca - 03/13/2021 11:24 AM CST PT HAD AN OFFICE VISIT SCHEDULED, O SHOW, CALLED PT, MAILBOX FULL-UNABLE TO LEAVE MESSAGE, LETTER SENT ON INSPECTOR documented in this encounter Plan of Treatment Upcoming Encounters Date Type Department Care Team (Late st Contact Info) Description 05/08/2024 11:30 AM CDT Clinical Support [facility] [address] [phone] Nurse, [facility] 06/10/2024 11:30 AM CDT Lab [facility] [address] [phone] Lab, [facility] 06/12/2024 11:00 AM CDT Office Visit [facility] [address] [phone] Devon Peres, [address] [place] [phone] 06/12/2024 11:15 AM CDT Clinical Support [facility] [address] [phone] Nurse, [facility] documented as of this encounter Visit Diagnoses Not on filedocumented in this encounter Additional Health Concerns Assessment Noted Time PHQ-9 Depression Total Score: 0 12/13/19 21 11:37 AM CDT documented as of this encounter Care Teams Mail Handler Equipment Operator Relationship Specialty Start Date End Date Bharat Rushing MD [address] [address] PCP - General Family Medicine 03/27/16 01/08/23 Tom Alfred MD [address] [address] PCP - General Family Medicine 01/09/23 Alejandro Yuan MD [address] [address] Gastroenterology 12/21/15 10/11/21 Devon Peres DO [address] [place] [phone] Consulting Physician Oncology 10/03/20 Aakash Hays MD [address] [id number] Gastroenterology 10/12/21 documented as of this encounter
--- OUTSIDE RECORDS SUMMARY | 2024-04-10 13:54 | XMS_ITS | Clinical Summary ---
Author Organization [facility] [address] [place] [address] Address [address] [place] [address] Care Team Providers Care Stiff Straw Hat Washer Name Role Phone Aakash Cantu MD Unavailable Tom Alfred MD Primary Care Provider Allergies Active Allergy Reactions Criticality Noted Date Comments Carbamazepine Other (See comments) Low 12/21/2015 dizziness Erythromycin Stomach upset,Other (See comments) Low 08/19/2007 Reaction: Stomach Pain, Gabapentin Anaphylaxis High 09/05/2020 Iodinated Contrast Media Hives Medium 07/02/2013 IV contrast Ioversol Hives Medium IV contrast Ketorolac Tromethamine Palpitations Low 04/05/2017 Levofloxacin Anaphylaxis High 05/28/2018 Metoclopramide Hcl Palpitations,Itching ,Ot her (See comments),Fatigue Low 12/21/2015 Metrizamide Urticaria Medium 02/14/2016 Penicillins Hives Medium 05/28/2018 Promethazine Hallucinations Medium 07/22/2019 Sulfa (Sulfonamide Antibiotics) Hives Medium 07/02/2013 Sulfasalazine Itching Low 12/21/2015 Dexamethasone Blisters High 05/28/2018 Surgical tape. Venom-Wasp Swelling Medium 09/13/2022 Bruising Azithromycin Palpitations Low 05/28/2018 Made pt shake Medications lidocaine (LIDODERM) 5 %Indications:Clos ed fracture of proximal end of left humerus with routine healing, unspecified fracture morphology, subsequent encounter Place 1 patch on the skin daily Apply to painful area 12 hours per day, remove for 12 hours. Apply to left shoulder 90 patch 4 022 Active Additional Information Patient taking differently:1 patch transdermalDaily PRN, pain, Apply to painful area 12 hours per day, remove for 12 hours. Apply to left shoulder, Informant: Self, Reported on 02/14/2023 albuterol HFA (PROVENTIL HFA,VENTOLIN HFA,PROAIR HFA) 90 mcg/actuation inhalerIndication s:Acute Asthma Attack Inhale 2 puffs every 6 (six) hours as needed for shortness of breath 1 each 11 022 Active Restasis 0.05 % ophthalmic emulsionIndicatio ns:Keratoconjunct ivitis Sicca Administer 1 drop into both eyes every morning Active fluticasone-umecl idin-vilanter (Trelegy Ellipta) 100-62.5-25 mcg inhaler [The details of the medication are not available because there are pending changes by a home health clinician.] 60 each 5 023 Active Additional Information Patient not taking.Reason: pt not taking this was only used for covid induced asthma per pt, Informant: Self, Reported on 11/07/2023 oxyCODONE-acetami nophen (PERCOCET) 5-325 mg per tabletIndications :Pain Take 1 tablet by mouth every 4 (four) hours as needed for pain 023 Active citalopram (CeleXA) 40 mg tabletIndications :Anxiety with Depression Take 1 tablet (40 mg total) by mouth daily 90 tablet 023 Active ALPRAZolam (XANAX) 0.5 mg tabletIndications :Generalized Anxiety Disorder Take 1 tablet (0.5 mg total) by mouth 2 (two) times a day as needed for anxiety 60 tablet 023 Active pregabalin (LYRICA) 50 mg capsuleIndication s:Fibromyalgia,pa in Take 1 capsule (50 mg total) by mouth 2 (two) times a day 023 Active pancrelipase (Creon) 24,000 units of lipase capsuleIndication s:exocrine pancreatic insufficiency Take 2 capsules by mouth 3 (three) times a day with meals 180 capsule 11 024 2024 Active melatonin 10 mg tabletIndications :sleep Take 1 tablet (10 mg total) by mouth nightly Active diclofenac sodium (VOLTAREN) 1 % gelIndications:Pa in Apply 2 g topically 2 (two) times a day Activ e ondansetron ODT (ZOFRAN-ODT) 4 mg disintegrating tablet DISSOLVE ONE TABLET EVERY 8 HOURS NEEDED Active ondansetron ODT (ZOFRAN-ODT) 8 mg disintegrating tablet Take 1 tablet (8 mg total) by mouth every 8 (eight) hours as needed Active naloxone (NARCAN) 4 mg/actuation spray,non-aerosol Administer 1 spray into affected nostril(s) 2024 Active zaleplon (SONATA) 10 mg capsule Active cyclobenzaprine (FLEXERIL) 5 mg tablet Active famotidine (PEPCID) 40 mg tablet Take 1 tablet (40 mg total) by mouth 2 (two) times a day 60 tablet [address] 40 mg capsule,delayed release(DR/EC)Ind ications:Chronic abdominal pain Take 40 mg by mouth daily 30 capsule Active bisacodyl EC (DULCOLAX EC) 5 mg EC tabletIndications :constipation Take 2 tablets (10 mg total) by mouth 2 (two) times a day as needed for constipation for up to 10 doses 20 tablet Active polyethylene glycol (MIRALAX) 17 gram/dose bulk powderIndications :constipation Take 17 g by mouth daily 238 g Active hydrOXYzine (ATARAX) 25 mg tablet Take 2 tablets (50 mg total) by mouth every 6 (six) hours [address] (PROTONIX) 40 mg EC tabletIndications :Treatment of Non-Bleeding Gastric Disorder Take 1 tablet (40 mg total) by mouth 2 (two) times a day Take 30min before meal 180 tablet [address] (PROTONIX) 40 mg EC tabletIndications :Treatment of Non-Bleeding Gastric Disorder Take 1 tablet (40 mg total) by mouth 2 (two) times a day Take 30min before meal 60 tablet 3 024 2024 Disconti nufrancisco(Reo rder) Active Problems Problem Noted Date Diagnosed Date Altered mental status, unspe cified altered mental status type 10/20/2023 Nortriptyline overdose of un determined intent, initial encounter 10/13/2023 Bacteriuria with pyuria 08/01/2023 Assessment & Plan (08/02/2023 1:52 AM CDT): -unclear if truly represents UTI -received IV ceftriaxone in ED; hold further Abx for now CATHRYN (acute kidney injury) 08/01/2023 Assessment & Plan (08/02/2023 1:45 AM CDT): -likely pre-renal etiology, related to GI fluid losses -she was given 2L IV LR in ED, along with 2g IV mag SO4 -urine creatinine and urine sodium added to ER urinalysis; calculate FENa once resulted -continue isotonic fluids overnight -renal dose meds -avoid nephrotoxins -monitor urine output -repeat BMP in AM Nausea vomiting and diarrhea 08/01/2023 Assessment & Plan (08/02/2023 1:53 AM CDT): -suspect self-limiting illness regardless of etiology -stool studies ordered -PRN antiemetics -if C.diff toxin negative, can consider PRN antidiarrheals S/P shoulder surgery 07/08/2023 Left shoulder pain 07/02/2023 Painful orthopaedic hardware 07/02/2023 Adhesive capsulitis of left shoulder 01/22/2023 Lateral epicondylitis of left elbow 01/22/2023 Abdominal pain 11/13/2022 Colitis 11/13/2022 Dysphagia 10/17/2022 Left upper quadrant abdominal pain 10/17/2022 Mild intermittent asthma without complication Assessment & Plan (09/05/2022 9:37 AM CDT): The patient is not wheezing and continues to use Trelegy 1 puff daily and albuterol on a p.r.n. basis. Hypoglycemia 05/08/2022 Assessment & Plan (10/09/2022 10:09 AM CDT): Chronic, uncontrolled Will try lower dose of acarbose, 12.5 mg tid Will restart CGM with FSL 3 If can not tolerate, will start low dose prednisone, 5 mg daily Pt with osteoporosis, on Prolia Advised on 500 mg Ca bid and vit D Will check vit D levels. Assessment & Plan (05/08/2022 4:33 PM CDT): I had a lengthy discussion with patient about pathophysiology of hypoglycemia. Mrs. South hypoglycemia seems to be multifactorial She seems to have a component of reactive hypoglycemia, which occurs after carb rich meals. Also probably a component of very low caloric intake in patient that can go prolonged hours and even days without eating. In the absence of any fasting or nocturnal hypoglycemia insulinomas or insulin like factor-omas , are pretty much ruled out. The only workup that I have recommended to do is morning serum cortisol and ACTH, , to rule out adrenal insufficiency. I have provided the patient with a freestyle Callum 2 C GMS to see the trends of her glucoses. This also warn her with dropping glucose so she can abort a hypoglycemic crisis. I also prescribed the patient acarbose to eat 30 minutes before meals specially they are going to be rich in carbs I discussed also, at length the need to improve her caloric intake and to decrease the intake of rapid absorption carbohydrates and try to incorporate more mixed meals with protein and fats that she can tolerate, like peanut butter . Osteopenia of left forearm 03/15/2022 Interstitial lung disease (CMS/HCC) 01/12/2022 Assessment & Plan (09/05/2022 9:36 AM CDT): I have offered the patient Ofev in the past and she is not in favor of taking this medication because of the possibility of cardiac side effects. She does have PFTs and another chest CT scheduled for December 2022. Assessment & Plan (06/20/2022 3:14 PM CDT): I discussed the chest CT findings again from last December 2022. I have recommended a repeat chest CT in full PFTs prior to her next appointment here in December 2022. I did discuss Ofev therapy and a possible referral to the I LD clinic and she is going to do further research but hold off on the medication referral at this time. Her ALEX and rheumatoid factor were negative. She will follow up here in 7 months. Assessment & Plan (01/12/2022 8:52 AM TAI CHI INSTRUCTOR): The chest CT suggests interstitial lung disease and I will check a rheumatoid factor and ALEX and she will follow-up here by phone. I will plan her see her in the office in 1 month. Chronic cough 11/15/2021 Assessment & Plan (09/05/2022 9:36 AM CDT): The patient states that her cough is productive of quesada phlegm. She is been using Mucinex b.i.d.. I will switch her to Daliresp 250 mcg daily and I told her to stop the Mucinex. She will follow-up with me in 2 months. Assessment & Plan (06/20/2022 3:15 PM CDT): The cough is controlled with the therapy for the asthma. Assessment & Plan (01/12/2022 8:51 AM TAI CHI INSTRUCTOR): I will add Mucinex 600 mg p.o. b.i.d. for the chronic cough to help thin the secretions. Assessment & Plan (12/07/2021 3:42 PM CDT): The patient continues on Trelegy 1 puff daily and Protonix. Her cough is productive of quesada phlegm. I will give her doxycycline 100 mg p.o. b.i.d. for 10 days and also check a chest CT without contrast. Her chest x-ray did reveal ill-defined opacities in the lung bases. She will follow-up me in 2 weeks. I have left a message at the PFT lab in [place] to have the PFTs moved up. Assessment & Plan (11/15/2021 2:27 PM CDT): The patient has a chronic cough. I will check a chest x-ray in full PFTs and I will give her a sample of Trelegy to use [address] of the Anoro. I did instruct her to rinse her mouth out with water after use. Hopefully this will decrease the cough and she will follow-up me in 3 weeks. Moderate episode of recurrent major depressive d isorder 08/18/2021 Closed fracture of left proximal humerus 022 COVID-19 08/03/2020 Assessment & Plan (08/03/2020 3:16 PM CDT): The patient was hospitalized on May 13 with COVID infection. The patient did have a chest x-ray in June that was clear. Dyspnea on exertion 07/06/2020 Assessment & Plan (07/06/2020 8:38 AM CDT): The patient developed dyspnea on exertion and a congested, dry cough following the COVID-19 infection. I will repeat a chest x-ray and order full PFTs with a 6 minutes walk test. I will also give her a Z-Helder at this time and she will follow-up here in 3 weeks after the above studies are completed. B12 deficiency 04/14/2020 Iron deficiency 04/14/2020 Lateral epicondylitis of right elbow 03/11/2020 Overview (03/11/2020): Added automatically from request for surgery [id number] Spinal stenosis, lumbar dasia on, with neurogenic claudication 09/04/2018 Overview (09/04/2018): Added automatically from request for surgery [id number] Examination for normal comparison for clinical r esearch 09/04/2018 Overview (09/04/2018): Added automatically from request for surgery [id number] Situational anxiety 05/28/2018 Mild persistent asthma without complication 04/2018 Assessment & Plan (06/20/2022 3:15 PM CDT): The patient is breathing has been under fairly good control with Trelegy 1 puff daily and p.r.n. albuterol. She continues to use Mucinex 600 mg p.o. b.i.d. to thin secretions. Assessment & Plan (01/12/2022 8:51 AM TAI CHI INSTRUCTOR): She continues on Trelegy and albuterol MDI. Assessment & Plan (12/07/2021 3:42 PM CDT): Patient continues on Trelegy 1 puff daily and p.r.n. use of albuterol. Assessment & Plan (11/15/2021 2:28 PM CDT): I will refill her albuterol inhaler and as above, I will switch her to Trelegy 1 puff daily Assessment & Plan (12/09/2020 11:47 AM CDT): The patient continues to benefit from the albuterol on a p.r.n. basis and Anoro daily. I have refilled these medications for her and she will follow up here in 6 months. She currently is refusing an influenza vaccine. Assessment & Plan (08/03/2020 3:16 PM CDT): The patient will be given samples of Breztri to try. The patient was instructed to use the Brezti 2 puffs twice a day and to rinse her mouth after using. The patient will call back in if she would like a prescription. The patient was instructed to stop her Anoro while using the Breztri. The patient will continue to use her albuterol inhaler as needed up to 4 times a day for shortness of breath. The patient was given a spacer to use with her inhalers. Gastroesophageal reflux disease without esophagi tis 05/28/2018 Other chronic pancreatitis 05/28/2018 Primary insomnia 05/28/2018 Hiatal hernia 05/28/2018 Spondylosis of lumbar region without myelopathy or radiculopathy 05/28/2018 Seasonal allergies 04/21/2018 JOSE (generalized anxiety disorder) 04/21/2018 Discoid lupus 03/31/2018 Lumbar back pain 11/06/2017 Assessment & Plan (11/21/2020 2:41 PM CDT): Ref to orthopedic surgery Idiopathic hypotension 04/15/2017 Iron deficiency anemia holly dorantes to inadequate dietary iron intake 04/05/2017 Osteoarthritis of spine with radiculopathy, lumb ar region 12/26/2016 Globus sensation 10/16/2016 Weight loss 09/18/2016 Hiatal hernia 09/04/2016 Anxiety 07/06/2016 Hiatal hernia 06/25/2016 Psychophysiological insomnia 05/29/2016 Atrial fibrillation ([facility]) 04/03/2016 Overview (10/09/2018): Documented on EKG several years ago, she has never worn a Holter monitor. Palpitations consistent with her A. fib occur daily per patient History of peptic ulcer disease 04/03/2016 Overview (10/09/2018): Managed by Dr. Yuan Chronic pancreatitis ([facility]) 04/03/2016 Overview (10/09/2018): On pancreatic enzyme supplementation Gastroesophageal reflux disease 04/03/2016 Overview (10/09/2018): Status post Camille fundoplication in 2008. Managed [address] Yuan Iron deficiency anemia holly dorantes to inadequate dietary iron intake 01/04/2016 Anemia 10/05/2014 Overview (05/31/2016): Anemia Neck pain 10/05/2014 Overview (05/31/2016): Cervical spine pain Chronic pancreatitis ([facility]) 10/05/2014 Overview (05/31/2016): Chronic pancreatitis Osteoarthritis of cervical spine 10/05/2014 Overview (05/31/2016): Cervical spondylosis Temporary cerebral vascular dysfunction 10/06/19 Overview (05/31/2016): TIA (transient ischemic attack) Neck sprain 07/20/2014 Overview (05/31/2016): Neck sprain Epigastric pain 02/11/2014 Resolved Problems Problem Noted Date Diagnosed Date Resolved Date Centrilobular emphysema ([facility]) 03/13/2018 11/15/2021 Mild persistent asthma without complication 08/06/2016 04/14/2020 Asthma 07/06/2016 04/14/2020 Chronic obstructive pulmonar y disease ([facility]) 03/22/2016 11/15/2021 Encounters Date Type Department Care Team Description 03/18/2024 Telephone [facility] Orthopaedic Surgery [address] 1[address] [place] [address] Papo Fang MD 02/10/2024 3:20 PM TAI CHI INSTRUCTOR Lab [facility] [address] [place] [id number] 01/17/2024 5:40 PM TAI CHI INSTRUCTOR - 01/17/2024 8:24 PM TAI CHI INSTRUCTOR Emergency [address] [address] Pruritus (Primary Dx); Constipation, unspecified constipation type Discharge Disposition: Discharge to home or self care 01/13/2024 Telephone [facility] Gastroenterology [address] [place] [address] Medical Office [address] [place] [address] Vesta Javier RN Unsuccessful Phone Call 1; Follow-up from Last 3 Months Immunizations Name Administration Dates Next Due DTaP 08/27/2013 Hep A, Adult 07/22/2020 Influenza, Quadrivalent, Hig h Dose, Preservative Free, Intrr 03/15/2022(Deferred: Patient Refused) Influenza, Unspecified 11/01/2021(Deferred: Magda ent decision) Pfizer SARS-CoV-2 Monovalent Vaccination (12+ Yrs) PURPLE 01/29/2021,07/09/2020,06/18/2020 Pneumococcal Conjugate Pcv20 01/16/2022 TD Preservative Free 11/05/2013 Tdap 08/16/2012 Surgical History Surgery Date Site/Laterality Comments TUBAL LIGATION 02/25/1979 - 02/25/1980 Bilateral HEMORRHOID SURGERY 02/26/2008 - 02/24/2009 CHOLECYSTECTOMY 02/26/2000 - 02/24/2001 THYROIDECTOMY 02/25/2005 - 02/24/2006 Left CENTRAL LINE PLACEMENT > 5 YEARS 07/01/2013 N/A CAMILLE FUNDOPLICATION 02/26/2008 - 02/24/2009 revision 2017 MA ERCP DX COLLECTION SPECIM EN BRUSHING/WASHING EXTRACORPOREAL SHOCK WAVE LITHOTRIPSY unusre of date PANCREAS SURGERY stent placement and removal-unsure of date LAPAROTOMY 02/25/2015 - 02/25/2016 for peritonitis UPPER GASTROINTESTINAL ENDOSCOPY 02/15/2020 DILATION AND CURETTAGE OF UTERUS 02/25/1983 - 02/25/1984 BREAST BIOPSY 02/26/1984 - 02/24/1985 multiple ANKLE FRACTURE SURGERY 02/25/1989 - 02/24/1990 Left FOOT NEUROMA SURGERY 02/26/1996 - 02/24/1997 Bilateral THUMB SURGERY Left unsure of date CATARACT EXTRACTION Left unsure of date APPENDECTOMY 02/26/1988 - 02/24/1989 HERNIA REPAIR 02/26/2008 - 02/24/2009 HYSTERECTOMY 02/25/1999 - 02/25/2000 total SALPINGOOPHORECTOMY 02/25/1999 - 02/25/2000 Bilateral BACK SURGERY 03/28/2021 - 04/24/2021 Fusion L4-L5 SHOULDER SURGERY 06/25/2021 - 07/25/2021 Left FRACTURE SURGERY 06/25/2021 - 07/25/2021 Left left arm surgery due to fracture from falling STOMACH SURGERY 02/25/2014 - 02/24/2015 ulcer Medical History Medical History Date Comments GERD (gastroesophageal reflux disease) Insomnia Anxiety, generalized Seasonal allergies Family history of premature CAD Kidney stone H/O breast lump Neda infection, esophagea l (CMS/HCC) (HCC) recurrent candidiasis in eso phagus; resolved 09/04/18 Chronic pancreatitis (CMS/HCC) (HCC) Brian neuroma bilateral Hiatal hernia Clostridioides difficile infection 2010 Concussion with loss of consciousness 06/2021 Anemia 2018 Asthma 2020 Peptic ulceration 2015 Family History Medical History Relation Name Comments Heart attack Brother 1 brother Heart disease Brother 1 brother Hypertension Brother 1 brother Drug abuse Brother 2 [facility] Early Brother 2 [facility] Heart attack Brother 2 [facility] Heart disease Brother 2 [facility] No Known Problems Brother 3 oneida Arthritis Father Mario South Family hist ory of arthritis - (Added by TW Conv) Depression Father Mario South Hearing loss Father Mario South Hypertension Father Mario South Hypertensio n; Heart disease Maternal Grandfather Heart disease; Breast cancer Maternal Grandmother grandmother Cancer , breast; Heart disease Maternal Grandmother grandmother Breast cancer Mother Shagufta Yates Cancer, breas t; Cancer Mother Shagufta Yates Family history of malignant neoplasm - (Added by TW Conv) Hypertension Mother Shagufta Yates Hypertension; Mental illness Mother Shagufta Yates Other Mother Shagufta Yates auto accident; Cause of : auto accident Heart attack Paternal Grandmother Marcela South Stroke Paternal Grandmother Marcela South Vision loss Paternal Grandmother aMrcela South Alcohol abuse Sister 1 Sharon Real Breast cancer Sister 1 Sharon Real Early Sister 1 Sharon Real Heart attack Sister 1 Sharon Real Heart disease Sister 1 Sharon Real Allergy (severe) Sister 2 Gemma Ascencio Breast cancer Sister 2 Gemma Ascencio Cancer, breast ; No Known Problems Son Anesthesia problems Neg Hx Relation Name Status Comments Brother 1 brother Alive Brother 2 Oneida South Alive Brother 3 oneida Alive Daughter 1 complications f rom prematurity Daughter 2 Kailee Angel suicide Daughter 3 Father Mario South staph infec tion Maternal Grandfather Alive Maternal Grandmother grandmother Mother Shagufta Yates (Age 42) car accid ent Paternal Grandmother Marcela South Sister 1 Sharon Real drowned Sister 2 Gemma Ascencio Alive Son Alive Social History Tobacco Use Types Packs/Day Years Used Date Smoking Tobacco: Former Cigarettes Q uit: 11/07/1978 Smokeless Tobacco: Never Tobacco Cessation:Counseling Given: Not Answered Alcohol Use Standard Drinks/Week Comments Not Currently 0 (1 standard drink = 0.6 oz pur e alcohol) OASIS D0700: Social Isolation Answer Da te Recorded Frequency of experiencing loneliness or isolatio n Never 11/27/2023 OASIS A1250: Transportation Answer Date Recorded Lack of Transportation (Medical) No 11/27/2023 Lack of Transportation (Non-Medical) No 11/27/2023 Patient Unable or Declines to Respond No 11/27/2023 OASIS B1300: Health Literacy Answer David e Recorded Frequency of needing help to read materials from doctor or pharmacy Never 11/27/2023 [facility] Utilities Answer Date Recorded In the past 12 months has e [employer] gas, oil, or water [employer] threatened to shut off services in your home? No 10/21/2023 Humiliation, Afraid, Rape, and Kick questionnair e Answer Date Recorded Fear of Current or Ex-Partner No Emotionally Abused No 11/18/2018 Physically Abused No 11/18/2018 Sexually Abused No 11/18/2018 Social Connection and Isolation Panel [NHANES] A nswer Date Recorded In a typical week, how many times do you talk on the phone with family, friends, or neighbors? Once a week 10/21/19 How often do you get togethe r with friends or relatives? Once a week 10/21/2023 How often do you attend chur ch or cheondoism services? 1 to 4 times per year 10/21/2023 Do you belong to any clubs o r organizations such as hoahaoism groups, unions, fraternal or athletic groups, or school groups? No 10/21/2023 How often do you attend meet ings of the clubs or organizations you belong to? Never 10/21/2023 Are you , , di vorced, , never , or living with a partner? 10/21/2023 AUDIT-C Answer Date Recorded Q1: How often do you have a drink containing alcohol? Never 11/05/2023 Q2: How many drinks containi ng alcohol do you have on a typical day when you are drinking? Patient does not drink Q3: How often do you have si x or more drinks on one occasion? Never 11/05/2023 Overall Financial Resource Strain (CARDIA) Answe r Date Recorded How hard is it for you to pa y for the very basics like food, housing, medical care, and heating? Not hard at all 10/21/2023 PHQ-2 Answer Date Recorded PHQ-2 Total Score (If total score is 3 or more points, staff should administer the PHQ-9) 0 03/15/2022 [facility]ational Stress Questionnaire Answer Date Recorded Feeling of Stress Not at all 11/18/2018 Exercise Vital Sign Answer Date Recorde d Days of Exercise per Week 5 days 2018 Minutes of Exercise per Session 10 min 11/18/2018 Hunger Vital Sign Answer Date Recorded Within the past 12 months, y ou worried that your food would run out before you got the money to buy more. Never true 10/21/19 24 Within the past 12 months, t he food you bought just didn't last and you didn't have money to get more. Never true 10/21/2023 PRAPARE - Transportation Answer Date Re corded In the past 12 months, has l ack of transportation kept you from medical appointments or from getting medications? No 09/26 In the past 12 months, has l ack of transportation kept you from meetings, work, or from getting things needed for daily living? No 10/21/2023 Housing Stability Vital Sign Answer David e Recorded In the last 12 months, was t here a time when you were not able to pay the mortgage or rent on time? No 10/21/2023 In the past 12 months, how m any times have you moved where you were living? 0 10/21/2023 At any time in the past 12 m [facility], were you homeless or living in a senior care (including now)? No 10/21/2023 Personal Safety Answer Date Recorded Have you ever been in or are you currently in a harmful physical or emotional relationship or is someone making you feel afraid or unsafe? Denies 01/17/2024 Comments No Sex and Gender Information Value Date Recorded Sex Assigned at Not on file Legal Sex Female 2:03 AM TAI [facility]I INSTRU[employer] Gender Identity Female 02/26/2020 12:09 PM TAI [facility]I INSTRUCTOR Sexual Orientation Straight 02/26/2020 12 :09 PM TAI [facility]I INSTRUCTOR Obstetrics History Para Term AB IAB SAB Ectopic Multiple Livin g Live Births 3 3 3 Date Outcome GA Total Labor Labor/2nd/3rd Weight Sex Type Anes PTL Kayla A1 A5 Name Clin Term Term Term Last Filed Vital Signs Vital Sign Reading Time Taken Comments Blood Pressure 110/61 01/17/2024 4:41 PM TAI [facility]I INSTRUCTOR Pulse 81 01/17/2024 4:41 PM TAI [facility]I INSTRUCTOR Temperature 36.4 C (97.5 F) 01/17/2024 4:41 PM TAI CHI INSTRUCTOR Respiratory Rate 20 01/17/2024 4:41 PM TAI CHI INSTRUCTOR Oxygen Saturation 100% 01/17/2024 4:41 PM TAI CHI INSTRUCTOR Inhaled Oxygen Concentration - - Weight 37.6 kg (83 lb) 01/17/2024 4:41 PM TAI CHI INSTRUCTOR Height 157.5 cm (5' 2 ) 01/17/2024 4:41 PM TAI CHI INSTRUCTOR Body Mass Index 15.18 01/17/2024 4:41 PM TAI CHI INSTRUCTOR Plan of Treatment Health Maintenance Due Date Last Done Comments Hepatitis B Screening 1972 Zoster Vaccine (1 of 2) 2004 Well Visit 65+ 11/19/2019 11/18/2018 Depression Screening 03/15/2023 03/15/2022, 11/16/2019, 11/18/2018, Additional history exists Breast Cancer Screening-Mammogram 07/06/2023 07/05/2022, 07/05/2022, 10/17/2020, Additional history exists Covid-19 Vaccine (2023- 5 season) 2023 02/22/2022, 01/29/2021, 07/09/2020, Additional history exists Influenza Vaccine (#1) 2023 DTaP/Tdap/Td Vaccine (4 - Td or Tdap) 11/06/2023 11/05/2013, 08/27/2013, 08/16/2012 Osteoporosis Screening-Bone Density Scan 07/05/2024 07/05/2022, 07/05/2022, 07/18/2016, Additional history exists Fall Risk Assessment 11/04/2024 11/05/2023, 04/17/2022, 04/24/2021, Additional history exists Colon Cancer Screening-Colonoscopy 12/24/2032 12/24/2022, 12/21/2021, 10/22/2016, Additional history exists Pneumococcal vaccine 65+ Completed 01/16/2022 Colon Cancer Screening-CT Colonography Discontinued 12/24/2022, 12/21/2021, 10/22/2016, Additional history exists Colon Cancer Screening-DNA Stool Discontinued 12/24/2022, 12/21/2021, 10/22/2016, Additional history exists Colon Cancer Screening-FIT Discontinued 12/24, 12/21/2021, 10/22/2016, Additional history exists Colon Cancer Screening-Sigmoidoscopy Discontinued 12/24/2022, 12/21/2021, 10/22/2016, Additional history exists Hepatitis C Screening Completed 02/10/2024, 021 Medical Devices Implanted Type Area Trolley Operator Device Identifier Shelf Expiration Date Model / Serial / Lot Musculoskeletal Transplant 60mmx5+ Mm Allograft Frozen Graft Bone Fibula Shaft [id number] - [id number] - [id number] Implanted:Qty: 1 on 07/12/2021 by Rosario Lyons MD at [facility] Bone Left: Humerus Musculoskeletal Transplant 02/11/2025 [id number] / [id number] / Explanted Type Area Trolley Operator Device Identifier Shelf Expiration Date Model / Serial / Lot Synthes Lcp Combi Philos [id number] 3 Hole Shaft Lock Compression 241.901 - [id number] Implanted:Qty: 1 on 07/12/2021 by Rosario Lyons MD at [facility] Explanted:Qty: 1 on 07/08/2023 by Papo Fang MD at [facility] Plate Left: Humerus Synthes I 241.901 / / Synthes 3.5mm 2.9mm 26mm Self Tap Lock Stardrive Conical Head T15 Full 212.109 - [id number] Implanted:Qty: 1 on 07/12/2021 by Rosario Lyons MD at [facility] Explanted:Qty: 1 on 07/08/2023 by Papo Fang MD at [facility] Screw Left: Humerus Synthes I 212.109 / / Synthes 3.5mm 6mm 32mm 2.5mm Self Tap Small Hexagonal Socket Low Profile 204.832 - [id number] Implanted:Qty: 1 on 07/12/2021 by Rosario Lyons MD at [facility] Explanted:Qty: 1 on 07/08/2023 by Papo Fang MD at [facility] Screw Left: Humerus Synthes I 204.832 / / Synthes 3.5mm 6mm 26mm 2.5mm Self Tap Small Hexagonal Socket Low Profile 204.826 - [id number] Implanted:Qty: 1 on 07/12/2021 by Rosario Lyons MD at [facility] Explanted:Qty: 1 on 07/08/2023 by Papo Fang MD at [facility] Screw Left: Humerus Synthes I 204.826 / / Synthes 3.5mm 2.9mm 50mm Self Tap Lock Stardrive Conical Head T15 Full 212.121 - [id number] Implanted:Qty: 1 on 07/12/2021 by Rosario Lyons MD at [facility] Explanted:Qty: 1 on 07/08/2023 by Papo Fang MD at [facility] Screw Left: Humerus Synthes I 212.121 / / Synthes 3.5mm 2.9mm 40mm Self Tap Lock Stardrive Conical Head T15 Full 212.117 - [id number] Implanted:Qty: 5 on 07/12/2021 by Rosario Lyons MD at [facility] Explanted:Qty: 5 on 07/08/2023 by Papo Fang MD at [facility] Screw Left: Humerus Synthes I 212.117 / / Synthes 3.5mm 2.9mm 45mm Self Tap Lock Stardrive Conical Head T15 Full 212.119 - [id number] Implanted:Qty: 1 on 07/12/2021 by Rosario Lyons MD at [facility] Explanted:Qty: 1 on 07/08/2023 by Papo Fang MD at [facility] Screw Left: Humerus Synthes I 212.119 / / Synthes 3.5mm 2.9mm 35mm Self Tap Lock Stardrive Conical Head T15 Full 212.114 - [id number] Implanted:Qty: 2 on 07/12/2021 by Rosario Lyons MD at [facility] Explanted:Qty: 2 on 07/08/2023 by Papo Fang MD at [facility] Screw Left: Humerus Synthes I 212.114 / / Synthes 3.5mm 6mm 24mm 2.5mm Self Tap Small Hexagonal Socket Low Profile 204.824 - [id number] Implanted:Qty: 2 on 07/12/2021 by Rosario Lyons MD at [facility] Explanted:Qty: 2 on 07/08/2023 by Papo Fnag MD at [facility] Screw Left: Humerus Synthes I 204.824 / / [employer] Willy .062in 9in Trocar [employer] [id number] - [id number] Explanted:Qty: 1 on 07/12/2021 by Rosario Lyons MD at [facility] Left: Humerus [employer] [id number] / / Procedures Procedure Name Priority Date/Time Associated Diagnosis Comments EGFR Routine 02/10/2024 3:42 PM TAI CHI INSTRUCTOR COMPREHENSIVE METABOLIC PANEL Routine 02/10/2024 3:42 PM TAI CHI INSTRUCTOR HEMOGLOBIN A1C Routine 02/10/2024 3:42 PM TAI CHI INSTRUCTOR LIPID PANEL Routine 02/10/2024 3:42 PM TAI CHI INSTRUCTOR HEPATITIS C ANTIBODY Routine 02/10/2024 3:42 PM TAI CHI INSTRUCTOR XR ABDOMEN AP 1 VIEW ED 01/17/2024 6:25 PM TAI CHI INSTRUCTOR XR CHEST PA LATERAL 2 VIEWS ED 01/17/2024 6:24 PM TAI CHI INSTRUCTOR EGFR STAT 01/17/2024 6:20 PM TAI CHI INSTRUCTOR DIFFERENTIAL AUTO STAT 01/17/2024 6:2 0 PM TAI CHI INSTRUCTOR THYROID FUNCTION CASCADE STAT 01/17/2024 6:20 PM TAI CHI INSTRUCTOR COMPREHENSIVE METABOLIC PANEL STAT 01/17/2024 6:20 PM TAI CHI INSTRUCTOR CBC WITH AUTO DIFFERENTIAL STAT 01/17/2024 6:20 PM TAI CHI INSTRUCTOR COLONOSCOPY 12/24/2022 1:55 PM CDT DEXA AXIAL SKELETON BONE DENSITY 1 OR MORE SITES Schedule Routine, Read Routine (OP Routine) 07/05/2022 3:15 PM CDT Multiple fractures Menopausal and postmenopausal disorder SCREENING MAMMOGRAM BILATERAL W KALIN Schedule Routine, Read Routine (OP Routine) 07/05/2022 3:00 PM CDT Screening mammogram, encounter for from Last 3 Months or Most Recently Relevant to Health Maintenance Results * eGFR (02/10/2024 3:42 PM TAI CHI INSTRUCTOR) eGFR 83 >=60 mL/min/1. 73 m2 Comment: Interpretive Data Reference Interval Normal >/= 90 mL/min/1.73m2 Mildly decreased* 60 - 89 mL/min/1.73m2 Mildly to moderately decreased 45 - 59 mL/min/1.73m2 Moderately to severely decreased 30 - 44 mL/min/1.73m2 Severely decreased 15 - 29 mL/min/1.73m2 Kidney Failure < 15 mL/min/1.73m2 *Relative to young adult level Estimated glomerular filtration rate is determined by the 2020 CKD-EPI equation recommended by the National Kidney Foundation (A Unifying Approach to GFR Estimation: Recommendations of the NKF-ASK Task Force on Reassessing the Inclusion of Race in Diagnosing Kidney Disease, JASN 2020). The CKD-EPI equation should not be used for patients with unstable renal function and has not been validated in children and those over 70. Current interpretive data was last reviewed 2020. Blood 02/10/2024 3:42 PM TAI CHI INSTRUCTOR 02/10/2024 4:13 PM TAI CHI INSTRUCTOR us Tom Alfred MD LAB BLOOD ORDERABLES Final Result [facility] [address] [facility] Department [place] [address] * Hepatitis C antibody Blood (02/10/2024 3:42 PM TAI CHI INSTRUCTOR) Hep C Ab Nonreactive Nonreactive Comment: Antibodies to HCV not detected. Does NOT exclude the possibility of recent exposure to HCV. Current interpretive data was last revised on 21 Interpretive Data Nonreactive: Antibodies to HCV not detected. Does NOT exclude the possibility of recent exposure to HCV. Equivocal: Equivocal for HCV antibodies. Supplemental molecular testing will be automatically performed to determine infection status in accordance with current CDC screening recommendations. Reactive: Positive for HCV antibodies. This may represent current or past HCV infection. Supplemental molecular testing will be automatically performed to determine current infection status in accordance with current CDC screening recommendations. Interpretive data was last revised on 2019. Blood 02/10/2024 3:42 PM TAI CHI INSTRUCTOR 02/10/2024 4:13 PM TAI CHI INSTRUCTOR Tom Alfred MD LAB MICROBIOLOGY - GENERAL ORDERABLES Final Result Performing Organization Address [facility] [[email or web address]] de Phone Number [address] [place] [address] * Hemoglobin A1c (02/10/2024 3:42 PM TAI CHI INSTRUCTOR) [facility] Hgb A1C 5.6 4.0 - 5.6 % Estimated Average Glucose 114 mg/dL [facility] Comment: The ADA recommends reporting an estimated Average Glucose (eAG) with all Hemoglobin A1c results using the equation derived from a study of 507 normal and diabetic adults. Minority populations were underrepresented and children were not included. (Diabetes Care 31:1020-0024, 2008). The eAG is not equivalent to a fasting glucose. Blood 02/10/2024 3:42 PM TAI CHI INSTRUCTOR 02/10/2024 4:13 PM TAI CHI INSTRUCTOR Tom Alfred MD LAB BLOOD ORDERABLES Final Result Performing Organization Address [facility] [[email or web address]] de Phone Number [address] [place] [address] * Lipid panel (02/10/2024 3:42 PM TAI CHI INSTRUCTOR) [facility] Cholesterol 173 30 - 199 mg/dL Comment: Interpretive Data Ages < or = 19 years Acceptable: <170 mg/dL Borderline high: 170-199 mg/dL High: >or= 200 mg/dL Ages > or = 20 years Desirable: <200 mg/dL Borderline high: 200-239 mg/dL High: >or= 240 mg/dL Literature References: 1. Expert Panel on Integrated Guidelines for Cardiovascular Health and Risk Reduction in Children and Adolescents. Pediatrics 2011;128:S213 2. NCEP Expert Panel. Circulation 2004;110:227 Current Interpretive Data was last revised on 2017. Triglycerides 96 <=149 mg/dL [facility] Comment: Interpretive Data Ages < or = 9 years Acceptable: <75 mg/dL Borderline high: 75-99 mg/dL High: >or= 100 mg/dL Ages 10 to 20 years Acceptable: <90 mg/dL Borderline high: 90-129 mg/dL High: >or= 130 mg/dL Ages > or = 20 years Desirable: <150 mg/dL Borderline high: 150-199 mg/dL High: 200-499 mg/dL Very high: >or= 499 mg/dL Literature References: 1. Expert Panel on Integrated Guidelines for Cardiovascular Health and Risk Reduction in Children and Adolescents. Pediatrics 2011;128:S213 2. NCEP Expert Panel. Circulation 2004;110:227 Current Interpretive Data was last revised on 2017. HDL 71 >=40 mg/dL [facility] Comment: Interpretive Data Ages < or = 19 years Acceptable: >45 mg/dL Borderline low: 40-45 mg/dL Low: <40 mg/dL Ages > or = 20 years Desirable: >or= 60 mg/dL Low: <40 mg/dL Literature References: 1. Expert Panel on Integrated Guidelines for Cardiovascular Health and Risk Reduction in Children and Adolescents. Pediatrics 2011;128:S213 2. NCEP Expert Panel. Circulation 2004;110:227 Current Interpretive Data was last revised on 2017. LDL, calculated 85 <=129 mg/dL [facility] Comment: Interpretive Data Ages < or = 19 years Acceptable: <110 mg/dL Borderline high: 110-129 mg/dL High: >or= 130 mg/dL Ages > or = 20 years Optimal: <100 mg/dL Near optimal: 100-129 mg/dL Borderline high: 130-159 mg/dL High: >160 mg/dL Calculated using the Bridges LDL-C estimating equation. This equation was implemented on 2023. Prior to this date LDL-C was estimated using the Friedewald equation. Literature References: 1. Expert Panel on Integrated Guidelines for Cardiovascular Health and Risk Reduction in Children and Adolescents. Pediatrics 2011;128:S213 2. NCEP Expert Panel. Circulation 2004;110:227 3. Cyrus M et al. CAR Cardiol. 2020 June 25;5(5):540-548. doi: 10.1001/jamacardio.2020.0013 Current Interpretive Data was last revised on 2023. Non-HDL Cholesterol 102 mg/dL [facility] Comment: Interpretive Data Ages < or = 19 years Acceptable: <120 mg/dL Borderline high: 120-144 mg/dL High: >145 mg/dL Ages > or = 20 years When triglycerides are >200 mg/dL, Non-HDL cholesterol is a secondary target of therapy with treatment goals that are 30 mg/dL greater than the LDL cholesterol target. Literature References: 1. Expert Panel on Integrated Guidelines for Cardiovascular Health and Risk Reduction in Children and Adolescents. Pediatrics 2011;128:S213 2. NCEP Expert Panel. Circulation 2004;110:227 Current Interpretive Data was last revised on 2017. Chol/HDL ratio 2 [facility] Blood 02/10/2024 3:42 PM TAI CHI INSTRUCTOR 02/10/2024 4:13 PM TAI CHI INSTRUCTOR Tom Alfred MD LAB BLOOD ORDERABLES Final Result [facility] [address] [facility] Department [place] [address] * (ABNORMAL) Comprehensive metabolic panel (02/10/2024 3:42 PM TAI CHI INSTRUCTOR) [facility] Sodium 138 135 - 145 mmol/L Potassium, pl 4.1 3.3 - 4.9 mmol/L [facility] Chloride 104 97 - 110 mmol/L [facility] CO2 21(L) 22 - 32 mmol/L [facility] Anion gap 13 2 - 15 mmol/L [facility] BUN 14 6 - 25 mg/dL [facility] Creatinine 0.77 0.60 - 1.10 mg/dL [facility] Glucose 128 70 - 199 mg/dL [facility] Comment: Interpretive Data Fasting glucose >/= 126 mg/dl is diagnostic for diabetes. Fasting is defined as no caloric intake for at least 8 hours. Fasting glucose between 100 mg/dl to 125 mg/dl is diagnostic of prediabetes. In a patient with classic symptoms of hyperglycemia or hyperglycemic crisis, a random glucose >/= 200 mg/dl is diagnostic for diabetes. In the absence of unequivocal hyperglycemia, results should be confirmed by repeat testing. The classification and Diagnosis of Diabetes Diabetes Care 2021; 46: S19-S40. Current interpretive data was last revised 2022. Calcium 9.9 8.5 - 10.3 mg/dL [facility] Bilirubin, total 0.2 0.1 - 1.2 mg/dL [facility] Protein, pl 6.3(L) 6.5 - 8.5 g/dL [facility] Albumin 3.6 3.5 - 5.0 g/dL [facility] Alk phos 79 40 - 130 Units/L [facility] ALT 16 7 - 45 Units/L [facility] AST 18 10 - 45 Units/L [facility] Blood 02/10/2024 3:42 PM TAI CHI INSTRUCTOR 02/10/2024 4:13 PM TAI CHI INSTRUCTOR us Tom Alfred MD LAB BLOOD ORDERABLES Final Result [facility] [address] [facility] Department [place] [address] * XR Abdomen Ap 1 Vw (01/17/2024 6:25 PM TAI CHI INSTRUCTOR) Anatomical Region Laterality Modality Body, Abdomen N/A Computed Radiogr aphy 01/17/2024 7:07 PM TAI CHI INSTRUCTOR Narrative 01/17/2024 7:09 PM TAI CHI INSTRUCTOR EXAM DESCRIPTION: XR ABDOMEN AP 1 VIEW REASON FOR STUDY: constipation Pt states constipation, Last BM x 5 days ago. TECHNIQUE: Single radiographic view of the abdomen. COMPARISON: CT abdomen and pelvis 11/06/2022 FINDINGS: BOWEL: Nonobstructive gas pattern. Large colonic stool burden up to the rectum. SOFT TISSUES: Post cholecystectomy. No abnormal calcifications. LINES/TUBES: None. BONES: Posterior fusion hardware and intervertebral disc spacer of the lumbar spine. Status post kyphoplasty. IMPRESSION: Large colonic stool burden up to the rectum can be seen with constipation. THIS IS AN ELECTRONICALLY VERIFIED FINAL REPORT 01/17/2024 7:09 PM - Electronically signed by Jocy Simon M.D. FT T: Report ID: [id number] Reading Location: [id number] Procedure Note Jocy Upton MD - 01/17/2024 EXAM DESCRIPTION: XR ABDOMEN AP 1 VIEW REASON FOR STUDY: constipation Pt states constipation, Last BM x 5 days ago. TECHNIQUE: Single radiographic view of the abdomen. COMPARISON: CT abdomen and pelvis 11/06/2022 FINDINGS: BOWEL: Nonobstructive gas pattern. Large colonic stool burdenup to the rectum. SOFT TISSUES: Post cholecystectomy. No abnormal calcifications. LINES/TUBES: None. BONES: Posterior fusion hardware and intervertebral disc spacer of thelumbar spine. Status post kyphoplasty. IMPRESSION: Large colonic stool burden up to the rectum can be seen with constipation. THIS IS AN ELECTRONICALLY VERIFIED FINAL REPORT 01/17/2024 7:09 PM - Electronically signed by Jocy Simon M.D. FT T: Report ID: [id number] Reading Location: [id number] Susan Reyez NP IMG XR PROCEDURES Final Resul t * XR Chest Pa Lateral 2 Views (01/17/2024 6:24 PM TAI CHI INSTRUCTOR) Anatomical Region Laterality Modality Body, Chest N/A Computed Radiogr aphy 01/17/2024 7:09 PM TAI CHI INSTRUCTOR Narrative 01/17/2024 7:10 PM TAI CHI INSTRUCTOR EXAM DESCRIPTION: XR CHEST PA LATERAL 2 VIEWS REASON FOR STUDY: pruritus of skin, itching, no lesions, r/o adenopathy Presents with itchy rash all over arms/trunk x 4 days. No visible rash noted in triage but states has been scratching at entire body x 4 days. Denies use of any new products at all. Has tried prednisone, calamine lotion, benadryl and dawna hives with no relief. TECHNIQUE: 2 radiographic view(s) of the chest. COMPARISON: Chest radiograph 10/20/2023 FINDINGS: LUNGS: No focal opacity, pleural effusion, or pneumothorax. HEART/MEDIASTINUM: Cardiac silhouette normal in size. Mediastinal and hilar contours appear normal. LINES/TUBES: None. BONES: No acute osseous abnormality. IMPRESSION: No acute cardiopulmonary abnormality. THIS IS AN ELECTRONICALLY VERIFIED FINAL REPORT 01/17/2024 7:10 PM - Electronically signed by Jocy Simon M.D. FT T: Report ID: [id number] Reading Location: [place] [address] Procedure Note Jocy Upton MD - 01/17/2024 EXAM DESCRIPTION: XR CHEST PA LATERAL 2 VIEWS REASON FOR STUDY: pruritus of skin, itching, no lesions, r/o adenopathy Presents with itchy rash all over arms/trunk x 4 days. No visible rashnoted in triage but states has been scratching at entire body x 4 days.Denies use of any new products at all. Has tried prednisone, calamine lotion, benadryl and dawna hives with no relief. TECHNIQUE: 2 radiographic view(s) of the chest. COMPARISON: Chest radiograph 10/20/2023 FINDINGS: LUNGS: No focal opacity, pleural effusion, or pneumothorax. HEART/MEDIASTINUM: Cardiac silhouette normal in size. Mediastinal andhilar contours appear normal. LINES/TUBES: None. BONES: No acute osseous abnormality. IMPRESSION: No acute cardiopulmonary abnormality. THIS IS AN ELECTRONICALLY VERIFIED FINAL REPORT 01/17/2024 7:10 PM - Electronically signed by Jocy Simon M.D. FT T: Report ID: [id number] Reading Location: [place] [address] Susan Reyez NP IMG XR PROCEDURES Final Resul t * eGFR (01/17/2024 6:20 PM TAI CHI INSTRUCTOR) eGFR >90 >=60 mL/min/1. 73 m2 Comment: Interpretive Data Reference Interval Normal >/= 90 mL/min/1.73m2 Mildly decreased* 60 - 89 mL/min/1.73m2 Mildly to moderately decreased 45 - 59 mL/min/1.73m2 Moderately to severely decreased 30 - 44 mL/min/1.73m2 Severely decreased 15 - 29 mL/min/1.73m2 Kidney Failure < 15 mL/min/1.73m2 *Relative to young adult level Estimated glomerular filtration rate is determined by the 2020 CKD-EPI equation recommended by the National Kidney Foundation (A Unifying Approach to GFR Estimation: Recommendations of the NKF-ASK Task Force on Reassessing the Inclusion of Race in Diagnosing Kidney Disease, JASN 2020). The CKD-EPI equation should not be used for patients with unstable renal function and has not been validated in children and those over 70. Current interpretive data was last reviewed 2020. Blood 01/17/2024 6:20 PM TAI CHI INSTRUCTOR 01/17/2024 6:20 PM TAI CHI INSTRUCTOR Susan Reyez [employer] LAB BLOOD ORDERABLES Final Re sult [facility] [address] [facility] Department [place] [address] * (ABNORMAL) Differential, auto (01/17/2024 6:20 PM TAI CHI INSTRUCTOR) Neutrophil abs 6.9(H) 1.5 - 6.5 K/cumm Imm gran abs 0.1 0.0 - 0.1 K/cumm [facility] Lymphocyte abs 0.3(L) 0.8 - 3.3 K/cumm [facility] Monocyte abs 0.3 0.2 - 0.8 K/cumm [facility] Eosinophil abs 0.0 0.0 - 0.5 K/cumm [facility] Basophil abs 0.1 0.0 - 0.1 K/cumm [facility] Neutrophil pct 90.3 % [facility] Comment: Interpretive Data Percent cell count reference ranges are not reported, since discordance with absolute values may lead to misinterpretation of CBC data. Current Interpretive Data was last revised on 2017. Imm gran pct 1.2 % [facility] Comment: Interpretive Data Percent cell count reference ranges are not reported, since discordance with absolute values may lead to misinterpretation of CBC data. Current Interpretive Data was last revised on 2017. Lymphocyte pct 3.8 % [facility] Comment: Interpretive Data Percent cell count reference ranges are not reported, since discordance with absolute values may lead to misinterpretation of CBC data. Current Interpretive Data was last revised on 2017. Monocyte pct 3.9 % [facility] Comment: Interpretive Data Percent cell count reference ranges are not reported, since discordance with absolute values may lead to misinterpretation of CBC data. Current Interpretive Data was last revised on 2017. Eosinophil pct 0.0 % [facility] Comment: Interpretive Data Percent cell count reference ranges are not reported, since discordance with absolute values may lead to misinterpretation of CBC data. Current Interpretive Data was last revised on 2017. Basophil pct 0.8 % [facility] Comment: Interpretive Data Percent cell count reference ranges are not reported, since discordance with absolute values may lead to misinterpretation of CBC data. Current Interpretive Data was last revised on 2017. Blood 01/17/2024 6:20 PM TAI CHI INSTRUCTOR 01/17/2024 6:20 PM TAI CHI INSTRUCTOR Susan Reyez LAB BLOOD ORDERABLES Final Re sult Performing Organization Address [facility] [[email or web address]] de Phone Number [address] [address] * Thyroid Function Saunders (01/17/2024 6:20 PM TAI CHI INSTRUCTOR) [facility] TSH 0.90 0.30 - 4.20 mcIUnit/mL Blood 01/17/2024 6:20 PM TAI CHI INSTRUCTOR 01/17/2024 6:20 PM TAI CHI INSTRUCTOR Susan Reyez LAB BLOOD ORDERABLES Final Re sult Performing Organization Address [facility] Co de Phone Number [address] [place] [address] * (ABNORMAL) CBC with auto differential (01/17/2024 6:20 PM TAI CHI INSTRUCTOR) [facility] WBC 7.7 3.8 - 9.9 K/cumm Hgb 10.6(L) 11.9 - 15.5 g/dL [facility] Hct 33.7(L) 35.6 - 45.5 % [facility] Plt 267 150 - 400 K/cumm [facility] MPV 9.6 9.1 - 12.3 fL [facility] RBC 3.48(L) 3.90 - 5.20 M/cumm [facility] MCV 96.8(H) 81.3 - 96.4 fL [facility] [facility] [place] MCH 30.5 27.1 - 33.3 pg [facility] MCHC 31.5(L) 32.3 - 35.7 g/dL [facility] RDW CV 18.4(H) 11.1 - 14.9 % [facility] RDW SD 65.1(H) 35.7 - 48.1 fL [facility] NRBC abs 0.03(H) 0.00 - 0.01 K/cumm [facility] Blood 01/17/2024 6:20 PM TAI CHI INSTRUCTOR 01/17/2024 6:20 PM TAI CHI INSTRUCTOR us Susan Reyez JOURNEYMAN MEAT CUTTER LAB BLOOD ORDERABLES Final Re sult [facility] [address] [facility] Department [place] [address] * (ABNORMAL) Comprehensive metabolic panel (01/17/2024 6:20 PM TAI CHI INSTRUCTOR) [facility] Sodium 137 135 - 145 mmol/L Potassium, pl 3.9 3.3 - 4.9 mmol/L [facility] Chloride 104 97 - 110 mmol/L [facility] CO2 24 22 - 32 mmol/L [facility] Anion gap 9 2 - 15 mmol/L [facility] BUN 12 6 - 25 mg/dL [facility] Creatinine 0.53(L) 0.60 - 1.10 mg/dL [facility] Glucose 112 70 - 199 mg/dL [facility] Comment: Interpretive Data Fasting glucose >/= 126 mg/dl is diagnostic for diabetes. Fasting is defined as no caloric intake for at least 8 hours. Fasting glucose between 100 mg/dl to 125 mg/dl is diagnostic of prediabetes. In a patient with classic symptoms of hyperglycemia or hyperglycemic crisis, a random glucose >/= 200 mg/dl is diagnostic for diabetes. In the absence of unequivocal hyperglycemia, results should be confirmed by repeat testing. The classification and Diagnosis of Diabetes Diabetes Care 2021; 46: S19-S40. Current interpretive data was last revised 2022. Calcium 8.9 8.5 - 10.3 mg/dL [facility] Bilirubin, total 0.4 0.1 - 1.2 mg/dL [facility] Protein, pl 5.7(L) 6.5 - 8.5 g/dL [facility] Albumin 3.8 3.5 - 5.0 g/dL [facility] Alk phos 58 40 - 130 Units/L [facility] ALT 13 7 - 45 Units/L [facility] AST 18 10 - 45 Units/L [facility] Blood 01/17/2024 6:2 0 PM TAI CHI INSTRUCTOR 01/17/2024 6:20 PM TAI CHI INSTRUCTOR Susan Reyez NP LAB BLOOD ORDERABLES Final Re sult [facility] [address] [facility] Department [place] [address] * COLONOSCOPY (12/24/2022 1:55 PM CDT) Anatomical Region Laterality Modality Other Narrative Procedure Note Megan Lauren MD - 12/24/2022 1:55 PM CDT [facility] Patient Name: Shae South Procedure Date: 12/24/2022 1:55 PM Date of : 1955 Admit Type: Outpatient Age: 67 Gender: Female Attending MD: Megan Lauren M.D. Room: [facility] ENDOSCOPY ROOM 9 Note Status: Finalized Procedure: Colonoscopy Indications: Chronic diarrhea, CT showing colitis Referring MD: Aakash Hays M.D. Providers: Megan Lauren M.D. Medicines: Monitored Anesthesia Care Complications: No immediate complications. Estimated Blood Loss: Estimated blood loss: none. Procedure: Pre-Anesthesia Assessment: - Prior to the procedure, a History and Physicalwas performed, and patient medications, allergies and sensitivities were reviewed. The patient'stolerance of previous anesthesia was reviewed. - The risks and benefits of the procedure and the sedation options and risks were discussed with the patient. All questions were answered and informed consent was obtained. - Immediately prior to administration ofmedications, the patient was re-assessed for adequacy to receive sedatives. - Sedation was administered by an anesthesia professional. Deep sedation was attained. - The heart rate, respiratory rate, oxygen saturations, blood pressure, adequacy of pulmonary ventilation, and response to care were monitored throughout the procedure. The benefits, risks and alternatives of theprocedure and sedation were discussed and informed consentwas obtained. All questions were answered. Please referto the signed informed consent document in the medical record. The scope was passed under direct vision.The [id number] endoscope was introducedthrough the anus and advanced to the cecum/ileum,identified by ileocecal valve. The colonoscopy was performed without difficulty. The patient tolerated the procedure well. The quality of the bowelpreparation was poor. The quality of the bowel preparation was evaluated using the BBPS ([place] Bowel Preparation Scale) with scores of: Right Colon = 1 (portion of mucosa seen, but other areas not well seen due to staining, residual stool and/or opaque liquid), Transverse Colon = 1 (portion of mucosa seen, but other areas not well seen due to staining, residual stool and/or opaque liquid) and Left Colon = 1 (portion of mucosa seen, but other areas not wellseen due to staining, residual stool and/or opaqueliquid). The total BBPS score equals 3. The quality of the bowel preparation was inadequate. The bowel preparation used was SUPREP via split dose instruction. Bowel prep was administered using asplit dose. Findings: Large amount of solid stool throughout the colon with suboptimalviews, poor prep, exam compromised Visualized area of colon with normal mucosa was found in the entire colon. Biopsies were taken with a cold forceps for histology. The pathology specimen was placed into Bottle E. The terminal ileum appeared normal. Biopsies were taken with a cold forceps for histology. The pathology specimen was placed into BottleD. Impression: - Preparation of the colon was poor. - Normal mucosa in the entire examined colon.Biopsied. - The examined portion of the ileum was normal. Biopsied. Pt has a colonoscopy last year exam in [facility], exam to cecum good prep withnegative exam, performed for eval of iron def anemia. [facility] yr[facility] This exam was performed due to ongoing diarrhea,and colitis on imaging. NO plan at this time to repeat exam, [facility] Path Recommendation: - Discharge patient to home. - Patient has a contact number available for emergencies. The signs and symptoms of potential delayed complications were discussed with thepatient. Return to normal activities tomorrow. Written discharge instructions were provided to thepatient. - Resume previous diet. - Continue present medications. - Await pathology results. - The findings and recommendations were discussedwith the patient. - In the unusual situation that you developabdominal pain, bleeding or other significant problems inthe days following this procedure please call my office [phone]). After hours and eveningsplease call [phone] and speak to the GI fellow oncall fellow. Please tell the fellow that Dr. Lauren did your procedure and that you were instructed to have the fellow call me or the physician covering for meto discuss the management of your condition. If youhave an urgent problem, please go to the nearestemergency room and have the ER doctor call my office duringthe day or the GI fellow after hours and weekends to arrange admission or transfer to our facility.Please bring this report with you if you go to theemergency room. Attending Participation: I personally performed the entire procedure. Electronically signed by Megan Lauren MD Megan Lauren M.D. 12/24/2022 2:43:06 PM . Number of Addenda: 0 Note Initiated On: 12/24/2022 1:55 PM Recognized by the [employer] for promoting quality in endoscopy Megan Lauren MD ENDOSCOPY PROCEDURES F inal Result * Dexa Axial Skeleton Bone Density 1 Or 2 Site (07/05/2022 3:15 PM CDT) Anatomical Region Laterality Modality Body N/A Mammography 07/05/2022 10:4 7 PM CDT Narrative 07/05/2022 10:49 PM CDT EXAM DESCRIPTION: DEXA AXIAL SKELETON BONE DENSITY 1 OR MORE SITES REASON FOR STUDY: 66 y/o year old F with given history of screening. Postmenopausal Trolley Operator/Model: ECO A (S/N [id number]) CLINICAL INFORMATION: Current height: 62 inches Maximum height: 62 inches Weight: 93 pounds Risk factors: Postmenopausal, prior hip/vertebral fracture, adult fracture, parental hip fracture, asthma or emphysema COMPARISON: None available FINDINGS: Left forearm: 33% radius BMD is 0.408 g/cm2 T-score is -4.8 LEFT HIP: Total BMD is 0.720 g/cm2 T-score is -1.8 Femoral neck BMD is 0.575 g/cm2 T-score is -2.5 FRAX: FRAX not reported due to T-scores of hip, femoral neck and/or spine being at or below -2.5 (Osteoporosis). IMPRESSION: Osteoporosis. REFERENCE: Bone mineral density: Normal (T-score above or = -1.0) Low bone mass (T-score between -1.0 and -2.5) replaces the previously used term osteopenia Osteoporosis (T-score = or below -2.5) Medical evaluation for secondary causes of low bone mineral density may be appropriate. FRAX is a World Health Organization validated fracture risk assessment tool that calculates a person's 10 year probability of a major osteoporosis related fracture and hip fracture. According to the National Osteoporosis Foundation guidelines, postmenopausal women and men age 50 or older with low bone mass and a 10 year probability of a major osteoporosis related fracture = or greater than 20% or a 10 year probability of a hip fracture = or greater than 3% should be considered for treatment. For further information, including treatment recommendations, please refer to the 2019 ISCD Official Positions (http://www.iscd.org) and the NOF's Clinician's Guide to Prevention and Treatment of Osteoporosis (http://www.nof.org/professionals/clinical-guidelines) THIS IS AN ELECTRONICALLY VERIFIED FINAL REPORT 07/05/2022 10:49 PM - Electronically signed by Jose Angel Duggan M.D. MF: [email or web address] Report ID: [id number] Reading Location: [place] [address] Procedure Note Jose Angel Duggan MD - 07/05/2022 EXAM DESCRIPTION: DEXA AXIAL SKELETON BONE DENSITY 1 OR MORE SITES REASON FOR STUDY: 66 y/o year old F with given history of screening. Postmenopausal Trolley Operator/Model: ECO A (S/N [id number]) CLINICAL INFORMATION: Current height: 62 inches Maximum height: 62 inches Weight: 93 pounds Risk factors: Postmenopausal, prior hip/vertebral fracture, adultfracture, parental hip fracture, asthma or emphysema COMPARISON: None available FINDINGS: Left forearm: 33% radius BMD is 0.408 g/cm2 T-score is -4.8 LEFT HIP: Total BMD is 0.720 g/cm2 T-score is -1.8 Femoral neck BMD is 0.575 g/cm2 T-score is -2.5 FRAX: FRAX not reported due to T-scores of hip, femoral neck and/or spine beingat or below -2.5 (Osteoporosis). IMPRESSION: Osteoporosis. REFERENCE: Bone mineral density: Normal (T-score above or = -1.0) Low bone mass (T-score between -1.0 and -2.5) replaces thepreviously used term osteopenia Osteoporosis (T-score = or below -2.5) Medical evaluation for secondary causes of low bone mineral density may be appropriate. FRAX is a World Health Organization validated fracture risk assessmenttool that calculates a person's 10 year probability of a major osteoporosisrelated fracture and hip fracture. According to the National OsteoporosisFoundation guidelines, postmenopausal women and men age 50 or older with low bonemass and a 10 year probability of a major osteoporosis related fracture = or greater than 20% or a 10 year probability of a hip fracture = or greaterthan 3% should be considered for treatment. For further information, including treatment recommendations, please referto the 2019 ISCD Official Positions (http://www.iscd.org) and the NOF's Clinician's Guide to Prevention and Treatment of Osteoporosis (http://www.nof.org/professionals/clinical-guidelines) THIS IS AN ELECTRONICALLY VERIFIED FINAL REPORT 07/05/2022 10:49 PM - Electronically signed by Jose Angel Duggan M.D. MF: [email or web address] Report ID: [id number] Reading Location: [place] [address] Bhavya ROMAN IMG DXA PROCEDURES Final Result * Screening Mammogram Bilateral W Kalin (07/05/2022 3:00 PM CDT) Anatomical Region Laterality Modality Breast Bilateral Mammography Impressions 07/05/2022 3:21 PM CDT BI-RADS ATLAS category (overall): 1 - Negative There is no mammographic evidence of malignancy. A 1 year screening mammogram is recommended. The patient has been or will be contacted. We recommend annual screening mammography for women at average risk of breast cancer beginning at age 40, based on guidelines of the [employer] (ACR Practice Parameter for the Performance of Screening and Diagnostic Mammography) and [employer]. For women with and elevated risk of breast cancer, please refer to the ACR Practice Parameter for specific screening recommendations. The patient will be entered into a reminder system with a target due date of 1 year for her next screening exam. Narrative 07/05/2022 3:21 PM CDT Screening Mammogram Bilateral W Kalin: 07/05/22 The study was acquired using full field digital technology and interpreted from soft copy. 2D digital mammographic views, as well as 3D digital tomosynthesis were performed in the CC and MLO projections. CLINICAL: Screening mammogram, encounter for No relevant medical history has been documented for this patient. History of breast cancer in Mother, Sister, Sister, Maternal Grandmother. COMPARISONS: 10/17/2020 SCREENING MAMMOGRAM BILATERAL W KALIN 04/23/2017 Diagnostic Mammogram Bilateral W Kalin 06/23/2013 Diagnostic Mammogram 2D Bilateral 05/27/2012 Diagnostic Mammogram 2D Bilateral BREAST TISSUE: The breasts are extremely dense, which lowers the sensitivity of mammography. FINDINGS: There is no new suspicious finding in either breast on mammogram. us Self Screening Mammogram IMG MAMMO PROCEDURES Fi nal Result from Last 3 Months or Most Recently Relevant to Health [place] [id number] MED[employer] [facility]ly [facility], [address] [place] [address] MEDICARE SOLUTIONS Member Subscriber Plan / Payer (Ef fective 2023-Present) Name:Shae South Relation to Subscriber:Self Name:Shae South Payer ID:[id number] (NAIC) Type:[facility] MEDICARE Address: [place] [phone] [facility], [address] [place] [address] [facility] MDCR HMO REF WORKERS COMPENSATION GENERIC [facility], [address] [place] [address] MEDICARE SOLUTIONS Advance Directives For more information, please contact: [phone] Documents on File Type Date Recorded Patient Emergency Medicine Specialist Expl anation ADVANCE DIRECTIVE 01/14/2018 11:25 AM ADVANCE DIRECTIVE 08/04/2015 12:00 AM POWER OF MOBILE ENGINEER FINANCIAL/MEDICAL * Full Code (Latest Code Status on File) Date Activated Date Inactivated Comments 11/05/2023 12:09 PM 11/05/2023 7:04 PM * Full Code Date Activated Date Inactivated Comments 10/20/2023 10:59 PM 10/22/2023 9:01 PM * Full Code Date Activated Date Inactivated Comments 10/13/2023 8:38 AM 10/14/2023 7:53 PM * Full Code Date Activated Date Inactivated Comments 08/02/2023 5:10 AM 08/02/2023 5:19 PM * Full Code Date Activated Date Inactivated Comments 07/25/2023 10:17 AM 07/25/2023 4:12 PM Care Teams Stiff Straw Hat Washer Relationship Specialty Start Date End Date Tom Alfred MD PCP - General Family Medicine 11/15/22 Aakash Cantu MD Referring Physician Gastroenterology 01/14/18
--- OUTSIDE RECORDS SUMMARY | 2024-04-10 13:54 | XMS_ITS | Encounter Summary ---
Author Organization [facility] Care Team Providers Care Ammonia Distiller Name Role Phone Bharat Rushing MD Primary Care Provider [phone] Aakash Cantu MD Unavailable [phone] Bhavya Zimmerman Primary Care Provider + Tom Alfred MD Primary Care Provider [phone] Encounter Details Date Type Department Care Team (Latest Contact Info) Description 01/13/2018 Orders Only [facility] CLINCONV ProviderOli MD [address] [place] [id number] Social History Tobacco Use Types Packs/Day Years Used Date Smoking Tobacco: Former Alcohol Use Standard Drinks/Week Comments No 0 (1 standard drink = 0.6 oz pur e alcohol) Comments Unknown Sex and Gender Information Value Date Recorded Sex Assigned at Not on file Legal Sex Female 2:03 AM MUSKRAT TRAPPER Gender Identity Female 02/26/2020 12:09 PM MUSKRAT TRAPPER Sexual Orientation Straight 02/26/2020 12 :09 PM MUSKRAT TRAPPER documented as of this encounter Plan of Treatment Not on file documented as of this encounter Procedures Procedure Name Priority Date/Time Associated Diagnosis Comments SCAN - PATHOLOGY 01/14/2018 12:0 0 AM MUSKRAT TRAPPER documented in this encounter Results * SCAN - PATHOLOGY (01/14/2018 12:00 AM MUSKRAT TRAPPER) Narrative 01/14/2018 12:00 AM MUSKRAT TRAPPER Ordered by an unspecified provider. 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 04/02/2012 04/01/2012 10/12/2020 5:00 AM CDT VRE Comment:Germ watcher auto flagging 10/05/2013 11/29/201610/12 5:00 AM CDT C. difficile Comment:2009. 08/11/2015 08/10/2015 06/25/2021 2:56 PM C DT COVID: Suspected 02/24/2020 02/24/2020 02/26/2020 10:36 PM MUSKRAT TRAPPER Respiratory Infection (ABIGAIL), contact + droplet Comment:Automatically added due to negative COVID-19 result. 02/26/2020 02/26/2020 03/11/2020 3:0 7 AM MUSKRAT TRAPPER COVID: Suspected 05/13/2020 05/13/2020 05/14/2020 12:15 PM CDT COVID: Suspected 03/06/2021 03/06/2021 03/07/2021 6:03 AM MUSKRAT TRAPPER COVID: Suspected 05/23/2021 05/23/2021 05/24/2021 3:05 AM CDT COVID: Suspected 05/25/2021 05/25/2021 05/26/2021 3:05 AM CDT COVID: Suspected 05/25/2021 05/25/2021 05/26/2021 6:42 AM CDT Rotavirus suspected 08/01/2023 08/01/2023 08/03/19 24 3:05 AM CDT Norovirus suspected 08/01/2023 08/01/2023 08/03/19 24 3:05 AM CDT C. difficile suspected 08/01/2023 08/01/202308/02 3:05 AM CDT COVID: Suspected 10/20/2023 10/20/2023 10/20/2023 7:07 PM CDT documented as of this encounter Care Teams Ammonia Distiller Relationship Specialty Start Date End Date Bharat Rushing MD PCP - General Family Medicine 05/26/18 11/19/21 Bhavya Zimmerman PA PCP - General Family Medicine 11/20/21 11/14/22 Tom Alfred MD PCP - General Family Medicine 11/15/22 Aakash Cantu MD Referring Physician Gastroenterology 01/14/18 documented as of this encounter
--- OUTSIDE RECORDS SUMMARY | 2024-04-10 13:54 | XMS_ITS | Encounter Summary ---
Author Organization [facility] Care Team Providers Care Retail Salesworker Name Role Phone Devon Peres Juanita LEONARDO Unavailable [phone] Aakash Hays MD Unavailable [phone] Tom Alfred MD Primary Care Provider [phone] Encounter Details Date Type Department Care Team (Latest Contact Info) Description 04/10/2024 Travel Social History Tobacco Use Types Packs/Day Years Used Date Smoking Tobacco: Former Cigarettes 0.5 24.3 0 11/08/1979 - 02/26/2004 Smokeless Tobacco: Never Alcohol Use Standard Drinks/Week Comments No 0 (1 standard drink = 0.6 oz pur e alcohol) PHQ-2 Answer Date Recorded Total Score - Questions 1-9 0 10/26 Comments Unknown Sex and Gender Information Value Date Recorded Sex Assigned at Not on file Legal Sex Female 10:46 AM CDT Gender Identity Not on file Sexual Orientation Not on file documented as of this encounter Plan of Treatment Upcoming Encounters Date Type Department Care Team (Late st Contact Info) Description 05/08/2024 11:30 AM CDT Clinical Support [facility] [address] [phone] Nurse, Cc [facility] 06/10/2024 11:30 AM CDT Lab [facility] [address] [phone] [facility] 06/12/2024 11:00 AM CDT Office Visit [facility] [address] [phone] Devon Peres DO [address] [place] [phone] 06/12/2024 11:15 AM CDT Clinical Support [facility] [address] [phone] Nurse, Cc [facility] documented as of this encounter Visit Diagnoses Not on filedocumented in this encounter Additional Health Concerns Assessment Noted Time PHQ-9 Depression Total Score: 0 12/13/19 11:37 AM CDT documented as of this encounter Care Teams Retail Salesworker Relationship Specialty Start Date End Date Tom Alfred MD [address] [address] PCP - General Family Medicine 01/09/23 Devon Peres DO [address] [place] [phone] Consulting Physician Oncology 10/03/20 Aakash Hays MD [address] [facility] [address] [address] Gastroenterology 10/12/21 documented as of this encounter
--- OUTSIDE RECORDS SUMMARY | 2024-04-10 13:54 | XMS_ITS | Clinical Summary ---
Author Organization [facility] Address [address], [facility] [address] [place] [address] Phone Care Team Providers Care Dice Table Person Name Role Phone Devon Peres DO Unavailable [phone] Aakash Hays MD Unavailable [phone] Tom Alfred MD Primary Care Provider [phone] Allergies Active Allergy Reactions Criticality Noted Date Comments Adhesive Tape Rash 12/21/2015 Budesonide-Formoterol Fumarate Swelling High 11/21/2020 Carbamazepine Other (see Comments) 12/21/2015 dizziness Erythromycin Nausea 12/21/2015 Pain and upset stomach Gabapentin Anaphylaxis High 09/05/2020 Iodine Hives Morphine Other (see Comments) 12/21/2015 Other reaction(s): Nausea And Vomiting Extreme abdominal pain and vomiting Ketorolac Tromethamine Palpitations Low 04/05/2017 Levofloxacin In D5w Hives 12/21/2015 Wound Dressing Adhesive Rash Medium 02/16/2009 medipore tape Penicillins Other (see Comments) 12/21/2015 Yeast infection to esophagus Metoclopramide Hcl Palpitations 12/21/2015 Sulfa Antibiotics Itching 12/21/2015 Wasp Venom Protein Swelling Medium 09/13/2022 Bruising Medications pantoprazole (PROTONIX) 40 MG Tablet Delayed ResponseIndicati ons:Iron deficiency anemia secondary to inadequate dietary iron intake,Thrombocy tosis,Other folate deficiency anemias 8 Active sucralfate (CARAFATE) 1 GM Tablet Take 1 g by mouth. Active BD Integra Syringe 25G X 1 3 ML Misc TO GIVE B 12 INJECTION 1 Active ibuprofen (MOTRIN) 800 MG Tablet Take 800 mg by mouth. 1 Active lidocaine (LIDODERM) 5 % Patch PLACE 1 PATCH ON LEFT SHOULDER DAILY APPLY TO PAINFUL AREA 12 HOURS PER DAY, REMOVE FOR 12 HOURS 2 Active ALPRAZolam (XANAX) 0.5 MG Tablet TAKE 1 TABLET BY MOUTH EVERY 6 HOURS NEEDED FOR ANXIETY. 2 Active Doxepin HCl 6 MG Tablet Take 1 Tablet by mouth nightly. 2 Active HYDROcodone-acet aminophen (NORCO) 7.5-325 MG Tablet TAKE 1 TABLET BY MOUTH EVERY 6 HOURS FOR 30 DAYS 2 Active Anoro Ellipta 62.5-25 MCG/ACT AEROSOL POWDER, BREATH ACTIVATED INHALE 1 PUFF DAILY FOR 30 DOSES 2 Active acarbose (PRECOSE) 25 MG Tablet TAKE 1 TABLET BY MOUTH 3 TIMES A DAY WITH MEALS. 3 Active zaleplon (SONATA) 5 MG Capsule TAKE 1 CAPSULE BY MOUTH NIGHTLY 3 Active oxyCODONE-acetam inophen (PERCOCET) 5-325 MG Tablet TAKE 1 TABLET BY MOUTH EVERY 6 HOURS 3 Active Mucus Relief 600 MG TABLET SR 12 HR TAKE 2 TABLETS (1,200 MG TOTAL) BY MOUTH TWICE A DAY 3 Active citalopram (CeleXA) 40 MG Tablet TAKE 1 TABLET (40 MG TOTAL) BY MOUTH DAILY. TAKE WITH 10 MG DOSE FOR A TOTAL DOSE OF 50 MG 3 Active Creon [address]-[address] units Capsule DR Particles TAKE 2 CAPSULES BY MOUTH 3 TIMES A DAY WITH MEALS 3 Active pregabalin (LYRICA) 50 MG Capsule TAKE 1 CAPSULE BY MOUTH TWICE A DAY FOR 30 DAYS 3 Active Glucagon, rDNA, (Glucagon Emergency) 1 MG Kit USE KIT DIRECTED FOR EMERGENCY LOW BLOOD SUGARS. DO NOT STORE IN REFRIDGERATOR. 3 Active Restasis 0.05 % Emulsion INSTILL 1 DROP 2 TIMES A DAY TO BOTH EYES 3 Active oxyCODONE (ROXICODONE) 5 MG Tablet Take 5 mg by mouth every 6 hours as needed. 4 Active nystatin (MYCOSTATIN) 845849 UNIT/ML Suspension TAKE 5 ML BY MOUTH 4 TIMES A DAY, SWISH AND SWALLOW 4 Active naloxone HCl (Narcan) 4 MG/0.1ML Liquid 1 Guys by Nasal route. 4 09/29/19 25 Active hydrOXYzine (ATARAX) 50 MG Tablet TAKE 1 TO 2 TABLETS BY MOUTH AT BEDTIME NEEDED FOR SLEEP Active ondansetron (ZOFRAN-ODT) 4 MG TABLET DISPERSIBLE 4 Active Melatonin 10 MG Tablet Take 10 mg by mouth. Active Diclofenac Sodium (VOLTAREN) 1 % Gel Apply 2 g. Active busPIRone (BUSPAR) 15 MG Tablet Take 15 mg by mouth 2 times daily. 4 Active Active Problems Patient Care Coordination No te Formatting of this note migh t be different from the original. ~~ OF May 09, 2018 PATIENT DOES NOT QUALIFY FOR OCM~~NO DX/TX~~ Patient gets treatment at [facility] Problem Noted Date Diagnosed Date Iron deficiency anemia secon jayna to inadequate dietary iron intake 01/04/2016 Thrombocytosis 12/21/2015 Anemia 12/21/2015 Encounters Date Type Department Care Team Description 04/10/2024 11:30 AM BILLING SERVICES MANAGER Clinical Support [facility] [address] [phone] Nurse, C[facility] [place] Iron deficiency anemia secondary to inadequate dietary iron intake (Primary Dx) 04/10/2024 Travel 03/13/2024 12:00 PM BILLING SERVICES MANAGER Clinical Support [facility] [address] [phone] Nurse, [facility] [place] Iron deficiency anemia secondary to inadequate dietary iron intake (Primary Dx) 03/13/2024 11:15 AM BILLING SERVICES MANAGER Office Visit [facility] [address] [phone] Devon Peres DO Iron deficiency anemia secondary to inadequate dietary iron intake (Primary Dx); Thrombocytosis 03/13/2024 Travel 02/21/2024 Telephone [facility] [address] [phone] Devon Peres DO 02/06/2024 2:30 PM BILLING SERVICES MANAGER Clinical Support [facility] [address] [phone] Nurse, Gabbie Albrecht Iron deficiency anemia secondary to inadequate dietary iron intake (Primary Dx) 02/06/2024 Travel from Last 3 Months Family History Medical History Relation Name Comments Heart Disease Brother 1 Heart Disease Brother 2 Melanoma Brother 3 Depression Father Hypertension Father Other-comment Father Guillian-Swan syndrome Heart Disease Maternal Grandfather Breast Cancer Maternal Grandmother Breast Cancer Mother Depression Mother Heart Disease Paternal Grandfather Breast Cancer Sister 1 Heart Disease Sister 2 Relation Name Status Comments Brother 1 Brother 2 Brother 3 Father Maternal Grandfather Maternal Grandmother Mother Paternal Grandfather Sister 1 Sister 2 Social History Tobacco Use Types Packs/Day Years Used Date Smoking Tobacco: Former Cigarettes 0.5 24.3 0 11/08/1979 - 02/26/2004 Smokeless Tobacco: Never Tobacco Cessation:Counseling Given: Not Answered Alcohol Use Standard Drinks/Week Comments No 0 (1 standard drink = 0.6 oz pur e alcohol) PHQ-2 Answer Date Recorded Total Score - Questions 1-9 0 10/26 Comments Unknown Sex and Gender Information Value Date Recorded Sex Assigned at Not on file Legal Sex Female 10:46 AM CDT Gender Identity Not on file Sexual Orientation Not on file Last Filed Vital Signs Vital Sign Reading Time Taken Comments Blood Pressure 110/78 03/13/2024 11:33 AM BILLING SERVICES MANAGER Pulse 83 03/13/2024 11:33 AM BILLING SERVICES MANAGER Temperature 36.5 C (97.7 F) 03/13/2024 11:33 AM BILLING SERVICES MANAGER Respiratory Rate 18 03/13/2024 11:33 AM BILLING SERVICES MANAGER Oxygen Saturation 98% 03/13/2024 11:33 AM BILLING SERVICES MANAGER Inhaled Oxygen Concentration - - Weight 43.2 kg (95 lb 3.2 oz) 03/13/2024 11:33 A M BILLING SERVICES MANAGER Height 157.5 cm (5' 2 ) 03/13/2024 11:33 AM BILLING SERVICES MANAGER Body Mass Index 17.41 03/13/2024 11:33 AM BILLING SERVICES MANAGER Plan of Treatment Upcoming Encounters Date Type Department Care Team (Late st Contact Info) Description 05/08/2024 11:30 AM CDT Clinical Support [facility] [address] [phone] Nurse, Gabbie [facility] 06/10/2024 11:30 AM CDT Lab [facility] [address] [phone] Lab, Gabbie [facility] 06/12/2024 11:00 AM CDT Office Visit [facility] [address] [phone] Devon Peres, [address] [place] [phone] 06/12/2024 11:15 AM CDT Clinical Support [facility] [address] [phone] Nurse, [facility] Health Maintenance Due Date Last Done Comments Hepatitis C Virus (HCV) Screening 1955 Cologuard 2004 Immunochemical Fecal Occult Blood 2004 Zoster Immunization (1 of 2) 2004 Influenza Immunization (#1) 2023 DEXA Bone Density 07/05/2024 07/05/2022, 04/03/2011 SARS-COV-2 Immunization ( season) 2024 01/16/2024, 06/18/2023, 02/22/2022, Additional history exists Mammogram 08/27/2024 08/27/2022, 06/25, 07/05/2022, Additional history exists Respiratory Syncytial Virus (RSV) Immunization (Adult) (1 - 1-dose 75+ series) 2029 Colonoscopy 12/24/2032 12/24/2022, 11/26, 02/25/2013 Colorectal Cancer Screening 12/24/2032 12/24/2022, 11/26, 02/25/2013 TdaP Immunization Completed 08/16/2012 DTaP/Tdap/Td Immunization Discontinued 2013, 08/27/2013, 08/16/2012 Pneumococcal Immunization (50+ years) Completed 01/16/2022 Pneumococcal Immunization Combined Discontinued 01/16/2022 Hepatitis B Immunization Aged Out No longer eligible based on patient's age to complete this topic Meningococcal Immunization (ACWY) Aged Out No longer eligible based on patient's age to complete this topic Rotavirus Immunization Aged Out No lo nger eligible based on patient's age to complete this topic Procedures Procedure Name Priority Date/Time Associated Diagnosis Comments CBC WITH AUTO DIFF OH Routine 02/06/2024 2:49 PM BILLING SERVICES MANAGER Iron deficiency anemia secondary to inadequate dietary iron intake CMP (COMPREHENSIVE METABOLIC PANEL) Routine 02/06/2024 2:49 PM BILLING SERVICES MANAGER Iron deficiency anemia secondary to inadequate dietary iron intake FERRITIN Routine 02/06/2024 2:49 PM BILLING SERVICES MANAGER Iron deficiency anemia secondary to inadequate dietary iron intake IRON W/ IRON BINDING CAPACITY OH Routine 02/06/2024 2:49 PM BILLING SERVICES MANAGER Iron deficiency anemia secondary to inadequate dietary iron intake VITAMIN B12 Routine 02/06/2024 2:49 PM BILLING SERVICES MANAGER Iron deficiency anemia secondary to inadequate dietary iron intake FOLIC ACID (FOLATE) Routine 02/06/2024 2 :49 PM BILLING SERVICES MANAGER Iron deficiency anemia secondary to inadequate dietary iron intake from Last 3 Months Results * IRON W/ IRON BINDING CAPACITY OH (02/06/2024 2:49 PM BILLING SERVICES MANAGER) IRON 100 50 - 212 ug/dL [facility] UIBC 163 155 - 355 ug/dL [facility] TIBC 263 261 - 478 ug/dl [facility] % Saturation 38 20 - 50 % [facility] 02/06/2024 2:49 PM BILLING SERVICES MANAGER Narrative [facility] - 02/06/2024 3:46 PM BILLING SERVICES MANAGER Release to patient->Immediate us Devon Peres DO LAB SEND OUTS Final Result [facility] OF ON LICENSE OF [facility] [place] [address], * (ABNORMAL) CBC WITH AUTO DIFF [place] (02/06/2024 2:49 PM BILLING SERVICES MANAGER) WBC 5.1 4.0 - 10.0 10*3/uL [facility] HGB 12.0 11.2 - 15.7 g/dL [facility] HCT 38.7 34.1 - 44.9 % [facility] PLT 315 163 - 369 10*3/uL [facility] MPV 10.1 9.4 - 12.4 fL [facility] RBC 3.90(L) 3.93 - 5.22 10*6/uL [facility] MCV 99(H) 79 - 95 fL [facility] MCH 30.8 25.6 - 32.2 pg [facility] MCHC 31.0(L) 32.2 - 36.5 g/dL [facility] RDW 19.9(H) 11.6 - 14.4 % [facility] Neutrophils % 48.1 36.0 - 66.0 % [facility] Lymphocytes % 39.3 19.0 - 40.0 % [facility] Monocytes % 9.8 4.1 - 12.1 % [facility] Eosinophils % 0.8 0.0 - 3.5 % [facility] Basophils % 1.2(H) 0.0 - 1.0 % [facility] Absolute Neutrophils 2.5 1.4 - 6.6 10*3/uL [facility] Absolute Lymphocytes 2.0 0.8 - 4.0 10*3/uL [facility] Absolute Monocytes 0.5 0.2 - 1.2 10*3/uL [facility] Absolute Eosinophils 0.0 0.0 - 0.4 10*3/uL [facility] Absolute Basophils 0.1 0.0 - 0.1 10*3/uL [facility] 02/06/2024 2:49 PM BILLING SERVICES MANAGER us Devon Peres DO LAB SEND OUTS Final Result Performing Organization Address [facility] Co de Phone Number [facility] * VITAMIN B12 (02/06/2024 2:49 PM BILLING SERVICES MANAGER) Vitamin B12 >1,500 180 - 914 pg/mL [facility] Blood 02/06/2024 2:49 PM BILLING SERVICES MANAGER Narrative [facility] - 02/07/2024 2:25 PM BILLING SERVICES MANAGER Release to patient->Immediate us Devon Peres DO CHEMISTRY ORDERABLES Final Res ult Performing Organization Address [facility] de Phone Number [facility] DELIVERY [facility] [address] [place] [address], [place] [phone] * FOLIC ACID (FOLATE) (02/06/2024 2:49 PM BILLING SERVICES MANAGER) Folate 14.86 >=5.90 ng/mL [facility] Blood 02/06/2024 2:49 PM BILLING SERVICES MANAGER Narrative [facility] - 02/07/2024 2:25 PM BILLING SERVICES MANAGER IS THE PATIENT REQUIRED TO BE FASTING FOR 12 HOURS?->No Release to patient->Immediate us Devon Peres DO CHEMISTRY ORDERABLES Final Res ult Performing Organization Address [facility] de Phone Number [facility] DELIVERY [facility] [address] [place] [address], [place] [phone] * FERRITIN (02/06/2024 2:49 PM BILLING SERVICES MANAGER) Ferritin 193 11 - 307 ng/mL [facility] Blood 02/06/2024 2:49 PM BILLING SERVICES MANAGER Narrative [facility] - 02/07/2024 2:25 PM BILLING SERVICES MANAGER Release to patient->Immediate us Devon Peres DO CHEMISTRY ORDERABLES Final Res ult [facility] DELIVERY [facility] [place] [address], [place] [phone] * (ABNORMAL) CMP (COMPREHENSIVE METABOLIC PANEL) (02/06/2024 2:49 PM BILLING SERVICES MANAGER) Glucose 93 70 - 105 mg/dL [facility] Blood Urea Nitrogen 11 7 - 25 mg/dL [facility] Creatinine 0.6 0.6 - 1.2 mg/dL [facility] Sodium 142 136 - 145 mEq/L [facility] Potassium 4.3 3.5 - 5.1 mEq/L [facility] Chloride 107 98 - 107 mEq/L [facility] Bicarbonate 22 21 - 31 mEq/L [facility] Total Bilirubin 0.6 0.3 - 1.0 mg/dL [facility] Alk. Phosphatase 55 34 - 104 U/L [facility] Aspartate Aminotransferase 39 13 - 39 U/L [facility] Alanine Aminotransferase 40 7 - 52 U/L [facility] Total Protein 6.0(L) 6.4 - 8.9 g/dL [facility] Albumin 3.8 3.5 - 5.7 g/dL [facility] Calcium 9.0 8.6 - 10.3 mg/dL [facility] Anion Gap 17.3(H) 7.0 - 15.0 mEq/L [facility] Globulin 2.2 2.0 - 3.5 g/dL [facility] EGFR 97 >60 ml/min/1. 73m2 [facility] Comment: This eGFR is calculated using 2020 CKD-EPI Creatinine equation without race modifier based on the NKF-ASN task force recommendations Blood 02/06/2024 2:49 PM BILLING SERVICES MANAGER Narrative [facility] - 02/06/2024 4:17 PM BILLING SERVICES MANAGER IS THE PATIENT REQUIRED TO BE FASTING FOR 8 HOURS?->No Release to patient->Immediate us Devon Peres DO CHEMISTRY ORDERABLES Final Res ult [facility] OF ON LICENSE OF [facility] [address] [place] [address], [place] [phone] from Last 3 Months Insurance MEDICARE C [employer] Care Teams Dice Table Person Relationship Specialty Start Date End Date Tom Alfred MD [address] [facility] [address] [place] [address] PCP - General Family Medicine 01/09/23 Devon Peres DO [address] [place] [phone] Consulting Physician Oncology 10/03/20 Aakash Hays MD [address] [facility] [address] [facility] [address] [place] [address] Gastroenterology 10/12/21
--- OUTSIDE RECORDS SUMMARY | 2024-04-10 13:54 | XMS_ITS | Clinical Summary ---
Author Organization [facility] Address [address] [place] [address] Care Team Providers Care Boat Outfitting Supervisor Name Role Phone Duc Rushing MD Primary Care Provider [phone] Allergies Active Allergy Reactions Criticality Noted Date Comments Carbamazepine Other (see comment) Low 12/21/2015 dizziness dizziness Iodine Hives High 12/21/2018 Erythromycin Nausea Only 12/21/2015 Pain and upset stomach Gabapentin Anaphylaxis High 09/05/2020 Levofloxacin Hives 12/21/2015 Metoclopramide Palpitations Low 12/21/2015 Morphine Hives,Itching,Other (see comment) Low 07/23/2010 Other reaction(s): Nausea And Vomiting Extreme abdominal pain and vomiting Reaction: Hives, Penicillins Hives 12/21/2015 Yeast infection to esophagus Promethazine Hallucinations High 12/21/2018 Sulfa Antibiotics Itching 12/21/2015 Sulfasalazine Itching Low 12/21/2015 Tape Rash,Contact Dermatitis Medium 02/16/2009 medipore tape Ketorolac Tromethamine Palpitations Low 04/05/2017 Wound Dressing Adhesive Rash Medium 02/16/2009 medipore tape Medications ALPRAZolam 0.25 MG tablet 12/18/19 16 Active citalopram 20 MG tablet Take 20 mg by mouth. 12/13/19 16 Active diphenhydrAMINE 25 MG tablet Take 25 mg by mouth nightly as needed. Active ondansetron 4 MG tablet Take 4 mg by mouth. Active zolpidem 10 MG tablet 11/30/19 16 Active cyanocobalamin 1000 MCG/ML injection Inject into the muscle monthly. 04/04/19 Active famotidine 20 MG tablet Take 20 mg by mouth daily. 11/08/19 21 Active lidocaine 5 % Place 1 patch onto the skin daily. 01/05/20 21 Active ANORO ELLIPTA 62.5-25 MCG/INH inhaler Inhale 1 puff into the lungs daily. 02/20/20 21 Active sucralfate 1 G tablet Take 1 g by mouth 4 (four) times daily before meals and nightly. Active doxycycline hyclate 100 MG tablet Take 1 tablet (100 mg total) by mouth 2 (two) times daily. Start evening dose on 04/07 09 tablet 04/07/19 Active cefdinir 300 MG Cap capsule Take 1 capsule (300 mg total) by mouth 2 (two) times daily. Start evening dose on 04/07 09 capsule 04/07/19 Active HYDROcodone-acetam inophen (NORCO) 5-325 MG tabletIndications: Acute Pain < 3 Day Supply Take 1 tablet by mouth every 6 (six) hours as needed for Pain. Indications: Acute Pain < 3 Day Supply 6 tablet 09/29/19 24 Active ondansetron (ZOFRAN-ODT) 4 MG disintegrating tablet Take 1 tablet (4 mg total) by mouth every 8 (eight) hours as needed for Nausea. 15 tablet 09/29/19 24 Active naloxone (NARCAN) 4 MG/0.1ML nasal spray 1 spray by Nasal route as needed for Opioid reversal. may repeat every 2 to 3 minutes in alternating nostrils until medical assistance becomes available 1 each 09/29/19 24 025 Active Active Problems Problem Noted Date Diagnosed Date S/P lumbar fusion 04/05/2021 COVID-19 08/03/2020 Overview (03/22/2021): Last Assessment & Plan: The patient was hospitalized on May 13 with COVID infection. The patient did have a chest x-ray in June that was clear. Dyspnea on exertion 07/06/2020 Overview (03/22/2021): Last Assessment & Plan: The patient developed dyspnea on exertion and a congested, dry cough following the COVID-19 infection. I will repeat a chest x-ray and order full PFTs with a 6 minutes walk test. I will also give her a Z-Helder at this time and she will follow-up here in 3 weeks after the above studies are completed. 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 Palpitations consistent with her A. fib occur daily per patient Chest pain 01/28/2014 04/05/2021 A-fib ([facility]) 09/2021 Encounters Date Type Department Care Team Description 03/31/2024 3:00 PM MICROBIOLOGY SOIL SCIENTIST - 03/31/2024 11:59 PM [facility] Hospital Encounter [facility] Diagnostic Imaging [address] [place], [place] [id number] Duc Rushing MD Discharge Disposition: Home or Self Care (Routine Discharge) 03/31/2024 Travel from Last 3 Months Family History Medical History Relation Comments Diabetes Brother 1 Heart Disease Brother 2 premature heart disease [place] Brother 2 Stent Cardiac Brother 2 Valve Disease Brother 2 Heart Disease Brother 3 premature heart disease Hypertension Brother 3 WA Brother 3 Stent Cardiac Brother 3 Valve Disease Brother 3 Anxiety Father Hypertension Father Cancer Sister 1 breast [place] Sister 1 cardiomyopathy Sister 1 Cancer Sister 2 breast parathyroid cancer Sister 2 Relation Status Comments Brother 1 Alive Brother 2 Alive Brother 3 Alive Father sepsis Mother Other absent from life , and early Sister 1 Sister 2 Alive Social History Tobacco Use Types Packs/Day Years Used Date Smoking Tobacco: Former Cigarettes 0.8 30 0 02/25/1974 - 02/26/2004 Passive Smoke Exposure: Never Smokeless Tobacco: Never Tobacco Cessation:Counseling Given: Not Answered Alcohol Use Standard Drinks/Week Comments No 0 (1 standard drink = 0.6 oz pur e alcohol) Comments No Sex and Gender Information Value Date Recorded Sex Assigned at Female 03/31/2024 3:00 PM MICROBIOLOGY SOIL SCIENTIST Legal Sex Female 9:41 PM CDT Gender Identity Female 03/22/2021 4:52 AM MICROBIOLOGY SOIL SCIENTIST Sexual Orientation Straight 03/22/2021 4: 52 AM MICROBIOLOGY SOIL SCIENTIST Last Filed Vital Signs Vital Sign Reading Time Taken Comments Blood Pressure 100/69 10/29/2023 5:00 PM CDT Pulse 89 10/29/2023 5:00 PM CDT Temperature 36.7 C (98 F) 10/29/2023 3:38 PM CDT Respiratory Rate 20 10/29/2023 5:00 PM CDT Oxygen Saturation 99% 10/29/2023 5:00 PM CDT Inhaled Oxygen Concentration - - Weight 36.7 kg (81 lb) 10/29/2023 3:38 PM CDT Height 157.5 cm (5' 2 ) 10/29/2023 3:38 PM CDT Body Mass Index 14.82 10/29/2023 3:38 PM CDT Plan of Treatment Health Maintenance Due Date Last Done Comments Zoster Vaccines (1 of 2) 2004 RSV Immunization or 60+ Years (1 - Risk 60-74 years 1-dose series) 2014 Annual Medicare Wellness Visit 09/02/2019 Colorectal Cancer Screening Colonoscopy (10 Years) 02/25/2023 02/25/2013 COVID-19 Vaccine ( - season) 2023 01/29/2021, 07/09/2020, 06/18/2020 DTaP, Tdap and Td Vaccines (4 - Td or Tdap) 11/06/2023 11/05/2013, 08/27/2013, 08/16/2012 Influenza Adult (#1) 2023 12/29/2013 PHQ-2 (Physician [place]) 02/26/2024 Mammogram Screening 08/27/2024 08/27/2022, 07/05/2022, 10/17/2020, Additional history exists Hepatitis C Completed 07/06/2020 Pneumococcal Vaccine: 65+ Years Completed 01/16/2022 Dexa Scan (General) Completed 07/05/2022, 07/05/2022, 04/03/2011, Additional history exists Meningococcal B Vaccine Aged Out No l onger eligible based on patient's age to complete this topic Meningococcal Vaccine Aged Out No shanon earl eligible based on patient's age to complete this topic RSV Immunizations Under 20 Months Aged Out No longer eligible based on patient's age to complete this topic Goals Goal Patient Goal Type Associated Problems Recent Progress Patient-Stated? Author Safety - demonstrates understanding of home safety measures General No Sneha De Santiago RN Medical Devices Implanted Type Area Motorized Squad Commanding Officer Device Identifier Shelf Expiration Date Model / Serial / Lot Graft Bone I Factor 2.5cc Allograft Putty Syringe - [id number] Implanted:Qty: 1 on 04/04/2021 by Mercy Mancera MD at [facility] Bone N/A: Spine Lumbar [employer] [id number] 10/26/2023 700-025 / / [id number] 6.5 X 45mm Screw Implanted:Qty: 2 on 04/04/2021 by Mercy Mancera MD at [facility] Screw N/A: Spine Lumbar -PA-65-4 5 / / Description:Motorized Squad Commanding Officer: Oleary rgalign 6.5 X 40mm Screw Implanted:Qty: 2 on 04/04/2021 by Mercy Mancera MD at [facility] Screw N/A: Spine Lumbar -PA-65-4 0 / / Description:Motorized Squad Commanding Officer: Oleary rgalign Set Screw Implanted:Qty: 4 on 04/04/2021 by Mercy Mancera MD at [facility] Screw N/A: Spine Lumbar 01-SETSCRE W / / Description:Motorized Squad Commanding Officer: Oleary rgalign Corelink Interbody Implanted:Qty: 1 on 04/04/2021 by Mercy Mancera MD at [facility] N/A: Back [id number] 09/20/2024 [id number] 2 / / [id number] 45mm Tacho Implanted:Qty: 2 on 04/04/2021 by Mercy Mancera MD at [facility] N/A: Back 10-55-MS-4 5 / / Procedures Procedure Name Priority Date/Time Associated Diagnosis Comments XR ANKLE RT 2V STAT 03/31/2024 3:13 PM MICROBIOLOGY SOIL SCIENTIST Pain in right ankle and joints of right foot HEP C SCANNED ORDERS Routine 07/06/2020 COLONOSCOPY Routine 02/25/2013 12:00 AM MICROBIOLOGY SOIL SCIENTIST from Last 3 Months or Most Recently Relevant to Health Maintenance Results * XR ANKLE RT 2V (03/31/2024 3:13 PM MICROBIOLOGY SOIL SCIENTIST) Anatomical Region Laterality Modality Ankle Radiographic Keiry ging 03/31/2024 3:18 PM MICROBIOLOGY SOIL SCIENTIST Impressions 03/31/2024 3:18 PM MICROBIOLOGY SOIL SCIENTIST IMPRESSION: No acute findings Ordered By: DUC RUSHING Interpreted By: Ralph Olivares MD, 03/31/2024 3:18 PM Narrative 03/31/2024 3:18 PM MICROBIOLOGY SOIL SCIENTIST [facility] [place] [address] 2 VIEWS OF THE RIGHT ANKLE Clinical History: Pain Comparison: None Findin views of the right ankle demonstrate the bony elements to be intact. There is no evidence of fracture or dislocation. The ankle mortise is symmetric. The surrounding soft tissues appear normal. Procedure Note Ralph Olivares MD - 03/31/2024 [facility] [place] [address] 2 VIEWS OF THE RIGHT ANKLE Clinical History: Pain Comparison: None Findin views of the right ankle demonstrate the bony elements to be intact.There is no evidence of fracture or dislocation. The ankle mortise issymmetric. The surrounding soft tissues appear normal. IMPRESSION: No acute findings Ordered By: DUC RUSHING Interpreted By: Ralph Olivares MD, 03/31/2024 3:18 PM us Duc Rushing MD GENERAL IMAGING Final Result * HEP C SCANNED ORDERS (07/06/2020) us Doc [facility] Scanned SCANNING Final Resu lt [facility] ON[facility] * Colonoscopy (02/25/2013 12:00 AM MICROBIOLOGY SOIL SCIENTIST) 02/25/2013 02/25/2013 Narrative [facility] TO EPIC CONVERSION - 02/25/2013 12:00 AM MICROBIOLOGY SOIL SCIENTIST Documented hx of procedure Procedure Note Kayli Fields MD - 12/29/2017 Documented hx of procedure us Generic Conversion Md FIELDS GI PROCEDURE ORDERABLES Final Result Performing Organization Address City/[facility] Co de Phone Number [facility] TO EPIC CONVERSION from Last 3 Months or Most Recently Relevant to Health Maintenance Additional Health Concerns Infection Onset Date Last 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
--- OUTSIDE RECORDS SUMMARY | 2024-04-10 13:54 | XMS_ITS | Encounter Summary ---
Author Organization [facility] Address [address] [place] [address] Care Team Providers Care Improvement Advisor Name Role Phone Bharat Rushing MD Primary Care Provider [phone] Encounter Details Date Type Department Care Team (Late st Contact Info) Description 10/18/2008 Outpatient Historical HIS [facility] ENDER Talbert, [place] [address] [address] Social History Tobacco Use Types Packs/Day Years Used Date Smoking Tobacco: Never Assessed Comments Unknown Sex and Gender Information Value Date Recorded Sex Assigned at Not on file Legal Sex Female 2:49 AM NEGATIVE SPOTTER Gender Identity Not on file Sexual Orientation Not on file documented as of this encounter Plan of Treatment Upcoming Encounters Date Type Department Care Team (Late Contact Info) Description 07/03/2024 10:30 AM CDT Office Visit [facility] - [address] [facility] [id number] [address] [place] [address] [facility] [address] [place] [address] documented as of this encounter Procedures Procedure Name Priority Date/Time Associated Diagnosis Comments XR CHEST PA AND LATERAL 2 VW Routine 10/18/2008 3:[address] CHEST W CONTRAST Timed Study 10/18/2008 1 :31 PM CDT POC CREATININE Routine 10/18/2008 1:28 PM CDT documented in this encounter Results * XR CHEST PA AND LATERAL (10/18/2008 3:08 PM CDT) Anatomical Region Laterality Modality Chest Other 10/18/2008 3:08 PM CDT Narrative 10/18/2008 5:00 PM CDT [facility] [address] [place] [address] Admit Date: 10/18/2008 SHAE BURTON Sex: F Admit Prov: TOY TALBERT Date: 1955 Primary Care Prov[id number] Room: [facility] N: [id number] IMAGING SERVICES Ordering Prov: N/A Accession Number: [id number] Interpretation TWO-VIEW CHEST, 10/18/08 HISTORY: Chest pain FINDINGS: There are no comparison films. The lungs are fully inflated and symmetrically aerated perhaps mildly hyperexpanded. No focal consolidation or effusion is identified. The heart and mediastinum are within normal limits. There are very mild chronic type changes in the right apex. There is a surgical clip in the anterior mediastinum and left-sided neck suggesting previous thyroid surgery. IMPRESSION: Question mild air trapping. Otherwise clear. . Dictated by: NEELAM WESTON 10/18/2008 15:37 Electronically signed by: NEELAM WESTON 10/18/2008 16:59 Transcribed: 10/18/2008 15:45 AMK Procedure Note Neelam Weston - 10/18/2008 [facility] [address] [place], [place] [address] Admit Date: 10/18/2008 SHAE BURTON Sex: F Admit Prov: TOY TALBERT Date: 1955 Primary Care Prov: Popeye CARLTON II CMRN: [id number] Room: BA SSN: [id number] IMAGING SERVICES Ordering Prov: N/A Interpretation TWO-VIEW CHEST, 10/18/08 HISTORY: Chest pain FINDINGS: There are no comparison films. The lungs are fully inflatedand symmetrically aerated perhaps mildly hyperexpanded. No focalconsolidation or effusion is identified. The heart and mediastinum are withinnormal limits. There are very mild chronic type changes in the right apex.There is a surgical clip in the anterior mediastinum and left-sided neck suggesting previous thyroid surgery. IMPRESSION: Question mild air trapping. Otherwise clear. . Dictated by: NEELAM WESTON 10/18/2008 15:37 Electronically signed by: NEELAM WESTON 10/18/2008 16:59 Transcribed: 10/18/2008 15:45 AMK us Toy Talbert MD DIAGNOSTIC IMAGING ORDERABLES Final Result * CT CHEST W CONTRAST (10/18/2008 1:31 PM CDT) Anatomical Region Laterality Modality Chest Other 10/18/2008 1:31 PM CDT Narrative 10/19/2008 12:05 AM CDT [facility] [address] [place], [place] [address] Admit Date: 10/18/2008 SHAE BURTON Sex: F Admit Prov: TOY TALBERT Date: 1955 Primary Care Prov: BIANKA JON Popeye JUDI CMRN: [id number] Room: [facility] SSN: [id number] IMAGING SERVICES Ordering Prov: N/A Accession Number: [id number] Interpretation CT CHEST WITH IV CONTRAST 10/18/08 CLINICAL HISTORY: Chest pain FINDINGS: CT of the chest is performed with intravenous contrast. There are no CT scans available for comparison. There is no evidence of mediastinal or hilar lymphadenopathy. There is no evidence of pleural effusion, pneumothorax, pulmonary parenchymal mass lesions or nodules. Some of the scans through the lung bases include the upper portion of the liver. There is a small amount of biliary air seen. The differential diagnosis for air in the biliary tree includes sphincterotomy, choledochal jejunostomy, or choledochal enteric fistula. Clinical correlation and followup is recommended. IMPRESSION: A small amount of air is demonstrated in the biliary tree on scans which included the upper portion of the liver. Clinical correlation and followup is recommended. The CT scan of the chest is otherwise unremarkable. . Dictated by: BETHANY DE LUNA 10/18/2008 14:13 Electronically signed by: BETHANY DE LUNA 10/19/2008 00:03 Transcribed: 10/18/2008 16:32 AMK Procedure Note Bethany De Luna MD - 10/19/2008 [facility] [address] [place], [place] [address] Admit Date: 10/18/2008 JOSEPHINEHSAE Sex: F Admit Prov: TOY TALBERT Date: 1955 Primary Care Prov: BIANKA WEBB Popeye JUDI CMRN: [id number] Room: [facility] SSN: [id number] IMAGING SERVICES Ordering Prov: N/A Interpretation CT CHEST WITH IV CONTRAST 10/18/08 CLINICAL HISTORY: Chest pain FINDINGS: CT of the chest is performed with intravenous contrast.There are no CT scans available for comparison. There is no evidence ofmediastinal or hilar lymphadenopathy. There is no evidence of pleural effusion, pneumothorax, pulmonary parenchymal mass lesions or nodules. Some of the scans through the lung bases include the upper portion ofthe liver. There is a small amount of biliary air seen. Thedifferential diagnosis for air in the biliary tree includes sphincterotomy,choledochal jejunostomy, or choledochal enteric fistula. Clinical correlationand followup is recommended. IMPRESSION: A small amount of air is demonstrated in the biliary treeon scans which included the upper portion of the liver. Clinicalcorrelation and followup is recommended. The CT scan of the chest is otherwise unremarkable. . Dictated by: BETHANY DE LUNA 10/18/2008 14:13 Electronically signed by: BETHANY DE LUNA 10/19/2008 00:03 Transcribed: 10/18/2008 16:32 AMK [address] Tal[address] MD [address] ORDERABLES Final Result * POC CREATININE (10/18/2008 1:28 PM CDT) CLIA LICENSE [id number] 1 [facility] CREATININE POC 0.7 0.6 - 1.3 mg/dL [facility] Comment: The calculation for the estimated GFR on the i-STAT POC instrument has been changed to correspond to the IDMS-traceable MDRD Study, upon the recommendation of the road engineer of the i-STAT instrument. The change was effective in our laboratory 02/02/2008. The impact of this change to the estimated GFR is minimal. This calculation is used by the main laboratory methodology also. GFR, >60 >=60 mL/min/1. 7 sq meter [facility] GFR >60 >=60 mL/min/1. 7 sq meter [facility] Capillary blood specimen (specimen) 10/18/2008 1:28 PM CDT 10/18/2008 1:28 PM CDT us Toy Talbert MD POINT OF CARE TESTING Edited [facility] CLIA# [id number] [address] [place] [address] documented in this encounter Visit Diagnoses Not on filedocumented in this encounter Care Teams Improvement Advisor Relationship Specialty Start Date End Date Bharat Rushing MD PCP - General Family Practice 05/24/16 documented as of this encounter
--- OUTSIDE RECORDS SUMMARY | 2024-04-10 13:54 | XMS_ITS | Encounter Summary ---
Author Organization [facility] Address [address] [place] [address] Phone Care Team Providers Care Assistant Facility Manager Name Role Phone Devon Peres DO Unavailable [phone] Aakash Hays MD Unavailable [phone] Tom Alfred MD Primary Care Provider Encounter Details Date Type Department Care Team (Late st Contact Info) Description 09/17/2023 Telephone [facility] [address] [place] [address] Devon Peres, DO [address] [place] [address] Social History Tobacco Use Types [...] Department Care Team (Late Contact Info) Description 05/08/2024 11:30 AM CDT Clinical Support [facility] [address] [phone] Nurse, [facility] 06/10/2024 11:30 AM CDT Lab [facility] [address] [phone] Lab, [facility] 06/12/2024 11:00 AM CDT Office Visit [facility] [address] [phone] Devon Peres DO [address] [place] [phone] 06/12/2024 11:15 AM CDT Clinical Support [facility] [address] [phone] Nurse, [facility] documented as of this encounter Visit Diagnoses Not on filedocumented in this encounter Additional Health Concerns Assessment Noted Time PHQ-9 Depression Total Score: 0 12/13/19 11:37 AM CDT documented as of this encounter Care Teams Assistant Facility Manager Relationship Specialty Start Date End Date Tom Alfred MD [address] [address] PCP - General Family Medicine 01/09/23 Devon Peres DO [address] [place] [phone] Consulting Physician Oncology 10/03/20 Aakash Hays MD [address] [facility] [address] [place] [address] Gastroenterology 10/12/21 documented as of this encounter
--- OUTSIDE RECORDS SUMMARY | 2024-04-10 13:54 | XMS_ITS | Encounter Summary ---
Author Organization [facility] Facility Care Team Providers Care Respiratory Therapist Assistant Name Role Phone Bharat Rushing MD Primary Care Provider [phone] Aakash Cantu MD Unavailable [phone] Bhavya Zimmerman Primary Care Provider + Tom Alfred MD Primary Care Provider [phone] Encounter Details Date Type Department Care Team (Latest Contact Info) Description 07/11/2017 Orders Only [facility] ProviderOli MD [address] [place] [id number] Social History Tobacco Use Types Packs/Day Years Used Date Smoking Tobacco: Former Alcohol Use Standard Drinks/Week Comments No 0 (1 standard drink = 0.6 oz pur e alcohol) Comments Unknown Sex and Gender Information Value Date Recorded Sex Assigned at Not on file Legal Sex Female 2:03 AM FIRER AUTOMATIC STOKER Gender Identity Female 02/26/2020 12:09 PM FIRER AUTOMATIC STOKER Sexual Orientation Straight 02/26/2020 12 :09 PM FIRER AUTOMATIC STOKER documented as of this encounter Plan of Treatment Not on file documented as of this encounter Procedures Procedure Name Priority Date/Time Associated Diagnosis Comments PROCEDURE - RESULT 07/11/2017 12 :00 AM CDT documented in this encounter Results * PROCEDURE - RESULT (07/11/2017 12:00 AM CDT) Narrative 07/11/2017 12:00 AM CDT Ordered by an unspecified provider. us Historical [...] COVID: Suspected 02/24/2020 02/24/2020 02/26/2020 10:36 PM FIRER AUTOMATIC STOKER Respiratory Infection (ABIGAIL), contact + droplet Comment:Automatically added due to negative COVID-19 result. 02/26/2020 02/26/2020 03/11/2020 3:0 7 AM FIRER AUTOMATIC STOKER COVID: Suspected 05/13/2020 05/13/2020 05/14/2020 12:15 PM CDT COVID: Suspected 03/06/2021 03/06/2021 03/07/2021 6:03 AM FIRER AUTOMATIC STOKER COVID: Suspected 05/23/2021 05/23/2021 05/24/2021 3:05 AM [...] documented as of this encounter Care Teams Respiratory Therapist Assistant Relationship Specialty Start Date End Date Bharat Rushing MD [phone] (Work) PCP - General Family Medicine 05/26/18 11/19/21 Bhavya Zimmerman PA PCP - General Family Medicine 11/20/21 11/14/22 Tom Alfred MD PCP - General Family Medicine 11/15/22 Aakash Cantu MD Referring Physician Gastroenterology 01/14/18 documented as of this encounter
--- OUTSIDE RECORDS SUMMARY | 2024-04-10 13:54 | XMS_ITS | Encounter Summary ---
Author Organization [facility] Address [address] [place] [address] Phone Care Team Providers Care Application Software Developer Name Role Phone Alejandro Yuan MD Unavailable [phone] Bharat Rushing MD Primary Care Provider [phone] Devon Peres DO Unavailable [phone] Aakash Hays MD Unavailable [phone] Tom Alfred MD Primary Care Provider [phone] Reason for Visit * Reason Comments Medication Refill Encounter Details Date Type Department Care Team (Late st Contact Info) Description 12/30/2020 Refill [facility] [address] [place] [address] Devon Peres, DO [address] [place] [address] Medication Refill Social History Tobacco Use Types Packs/Day Years [...] have Coronavirus / COVID-19? No / Unsure 12/19/2020 1:59 PM CDT documented as of this encounter Miscellaneous Notes * Telephone Encounter - Devon Peres DO - 12/30/2020 2:24 PM CDT k normal. Patient has stopoped. No need to continue kcl * Telephone Encounter - Sonam Menendez RMA - 12/30/2020 10:48 AM CDT Pharmacy refill request. Please refill if appropriate. Thanks! documented in this encounter Plan of Treatment Upcoming Encounters Date Type Department Care Team (Late st Contact Info) Description 05/08/2024 11:30 AM CDT Clinical Support [facility] [address] [phone] Nurse, Gabbie VILLALPANDO 06/10/2024 11:30 AM CDT Lab [facility] [address] [phone] Lab, Gabbie VILLALPANDO 06/12/2024 11:00 AM CDT Office Visit [facility] [address] [phone] Devon Peres DO [address] [place] [phone] 06/12/2024 11:15 AM CDT Clinical Support [facility] [address] [phone] Nurse, Gabbie VILLALPANDO documented as of this encounter Visit Diagnoses Diagnosis Iron deficiency anemia secondary to inadequate dietary iron intake Thrombocytosis Essential thrombocythemia documented in this encounter Additional Health Concerns Assessment Noted Time PHQ-9 Depression Total Score: 0 12/13/19 21 11:37 AM CDT documented as of this encounter Care Teams Application Software Developer Relationship Specialty Start Date End Date Bharat Rushing MD [address] [facility] [address] [place] [address] PCP - General Family Medicine 03/27/16 01/08/23 Tom Alfred MD [address] [address] PCP - General Family Medicine 01/09/23 Alejandro Yuan MD [address] [address] Gastroenterology 12/21/15 10/11/21 Devon Peres DO [address] [place] [phone] Consulting Physician Oncology 10/03/20 Aakash Hays MD [address] [address] Gastroenterology 10/12/21 documented as of this encounter
--- OUTSIDE RECORDS SUMMARY | 2024-04-10 13:54 | XMS_ITS | Referral Summary ---
Author Organization [facility] Address [address] [place] [address] Care Team Providers Care Staff Developer Name Role Phone Uzair Nelson MD Primary Care Provider [phone] [facility],non-owned Affiliates and Associated Physician Practices is amultiple site organization consisting of ambulatory clinics and hospital sitesin [place], [place] and [place]. This disclosure is being madepursuant to the Care Everywhere program and may not contain all information available regarding this patient. Last updated 17.[facility] Allergies Active Allergy Reactions Criticality Noted Date Comments Erythromycin 03/23/2011 Contrast-Iodinated Agents For Ct/Other Urticaria Medium 02/14/2016 Levofloxacin 03/23/2011 Penicillins 03/23/2011 Metoclopramide Itching 02/14/2016 Sulfa Drugs Itching 02/14/2016 Ketorolac Rash Medium 03/23/2011 Medications * Be aware that medications may not be up to date on this document. Alwaysverify current medications with the patient. Medication Sig Dispensed Refills Start Date End Date Status pantoprazole EC (PROTONIX) 20 MG tablet Take 20 mg by mouth 2 times daily Active ALPRAZolam (XANAX) 0.25 MG tablet Take 0.25 mg by mouth 3 times daily as needed for Anxiety Active diphenhydrAMINE (BENADRYL) 25 MG capsule Take 25 mg by mouth nightly as needed for Itching Active zolpidem (AMBIEN) 5 MG tablet Take 5 mg by mouth nightly as needed for Insomnia Active pregabalin (LYRICA) 75 MG capsule Take 75 mg by mouth 2 times daily Active sucralfate (CARAFATE) 1 GM tablet Take 1 g by mouth 4 times daily - before meals & nightly Active pancrelipase (CREON) 13609 UNITS capsule Take 2 Caps by mouth 3 times daily with meals Active doxycycline (VIBRAMYCIN) 100 MG capsule Take 100 mg by mouth once daily Active cycloSPORINE (RESTASIS) 0.05 % ophthalmic suspension Instill 1 Drop into both eyes 2 times daily Active ibuprofen (MOTRIN) 800 MG tablet Take 800 mg by mouth every 6 hours as needed for Pain Active Social History Tobacco Use Types Packs/Day Years Used Date Smoking Tobacco: Never Cigarettes Smokeless Tobacco: Never Alcohol Use Standard Drinks/Week Comments No 0 (1 standard drink = 0.6 oz pur e alcohol) Sex and Gender Information Value Date Recorded Sex Assigned at Not on file Gender Identity Not on file Sexual Orientation Not on file Last Filed Vital Signs Vital Sign Reading Time Taken Comments Blood Pressure 118/68 03/23/2011 8:46 PM COMPLAINT MANAGER Pulse 78 03/23/2011 8:46 PM COMPLAINT MANAGER Temperature 36.7 C (98 F) 03/23/2011 4:05 PM COMPLAINT MANAGER Respiratory Rate 18 03/23/2011 8:46 PM COMPLAINT MANAGER Oxygen Saturation 100% 03/23/2011 8:46 PM COMPLAINT MANAGER Inhaled Oxygen Concentration - - Weight 40.4 kg (89 lb) 02/14/2016 10:40 AM COMPLAINT MANAGER Height 157.5 cm (5' 2 ) 02/14/2016 10:40 AM COMPLAINT MANAGER Body Mass Index 16.28 02/14/2016 10:40 AM COMPLAINT MANAGER Functional Status Functional Status Response Date of Assess ment Is person deaf or have serious hearing difficult y? No 02/14/2016 Is person blind or have serious difficulty seein g? No 02/14/2016 Does person have serious dif ficulty walking/climbing stairs? No 02/14/2016 Does person have difficulty dressing/bathing? No 02/14/2016 Does person have difficulty doing errands alone? No 02/14/2016 Cognitive Status Response Date of Assessm ent Does person have difficulty concentrating/remembering/making decisions? No 02/14/2016 Plan of Treatment Not on file Care Teams Staff Developer Relationship Specialty Start Date End Date Uzair Nelson MD [address] [place] [phone] PCP - General Internal Medicine 01/31/16
--- OUTSIDE RECORDS SUMMARY | 2024-04-10 13:54 | XMS_ITS | Encounter Summary ---
Author Organization [facility] Facility Care Team Providers Care Call Center Supervisor Name Role Phone Bharat Rushing MD Primary Care Provider [phone] Aakash Cantu MD Unavailable [phone] Bhavya Zimmerman Primary Care Provider + Tom Alfred MD Primary Care Provider [phone] Encounter Details Date Type Department Care Team (Latest Contact Info) Description 10/14/2017 Orders Only [facility] CLIN[facility] ProviderOli MD [address] [place] [address] Social History Tobacco Use Types Packs/Day Years Used Date Smoking Tobacco: Former Alcohol Use Standard Drinks/Week Comments No 0 (1 standard drink = 0.6 oz pur e alcohol) Comments Unknown Sex and Gender Information Value Date Recorded Sex Assigned at Not on file Legal Sex Female 2:03 AM LEADITE HEATER Gender Identity Female 02/26/2020 12:09 PM LEADITE HEATER Sexual Orientation Straight 02/26/2020 12 :09 PM LEADITE HEATER documented as of this encounter Plan of Treatment Not on file documented as of this encounter Procedures Procedure Name Priority Date/Time Associated Diagnosis Comments PROCEDURE - RESULT 10/16/2017 12 :00 AM CDT documented in this encounter Results * PROCEDURE - RESULT (10/16/2017 12:00 AM CDT) Narrative 10/16/2017 12:00 AM CDT Ordered by an unspecified [...] COVID: Suspected 02/24/2020 02/24/2020 02/26/2020 10:36 PM LEADITE HEATER Respiratory Infection (ABIGAIL), contact + droplet Comment:Automatically added due to negative COVID-19 result. 02/26/2020 02/26/2020 03/11/2020 3:0 7 AM LEADITE HEATER COVID: Suspected 05/13/2020 05/13/2020 05/14/2020 12:15 PM CDT COVID: Suspected 03/06/2021 03/06/2021 03/07/2021 6:03 AM LEADITE HEATER COVID: Suspected 05/23/2021 05/23/2021 05/24/2021 3:05 AM [...] documented as of this encounter Care Teams Call Center Supervisor Relationship Specialty Start Date End Date Bharat Rushing MD [phone] (Work) PCP - General Family Medicine 05/26/18 11/19/21 Bhavya Zimmerman PA PCP - General Family Medicine 11/20/21 11/14/22 Tom Alfred MD PCP - General Family Medicine 11/15/22 Aakash Cantu MD Referring Physician Gastroenterology 01/14/18 documented as of this encounter
--- OUTSIDE RECORDS SUMMARY | 2024-04-10 13:54 | XMS_ITS | Encounter Summary ---
Author Organization [facility] Address [address] [place] [address] Care Team Providers Care Confectionery Laboratory Manager Name Role Phone Bharat Rushing MD Primary Care Provider [phone] Encounter Details Date Type Department Care Team (Latest Contact Info) Description 08/02/2008 Outpatient Historical [facility] Tremayne Chin MD NO ADDRESS ON FILE Unspecified Hemorrhoids without Mention of Complication Social History Tobacco Use Types Packs/Day Years Used Date Smoking Tobacco: Never Assessed Comments Unknown Sex and Gender Information Value Date Recorded Sex Assigned at Not on file Legal Sex Female 2:49 AM BLOCK CAPTAIN Gender Identity Not on file Sexual Orientation Not on file documented as of this encounter Plan of Treatment Upcoming Encounters Date Type Department Care Team (Late st Contact Info) Description 07/03/2024 10:30 AM CDT Office Visit [facility] - [address] [facility] [address] [address] [place] [address] [facility] [address] [place] [address] documented as of this encounter Procedures Procedure Name Priority Date/Time Associated Diagnosis Comments PATHOLOGY Routine 08/02/2008 9:27 AM CDT HEMOGLOBIN AND HEMATOCRIT Stat 08/02/2008 6:30 AM CDT documented in this encounter Results * PATHOLOGY (08/02/2008 9:27 AM CDT) FINAL REPORT [facility] [address] [place], [place] [address] Patient: SHAE BURTON : 1955 Procedure Date: 08/02/2008 Accession Date: 08/02/2008 Case No: [id number] Ordering Dr: TREMAYNE CHIN Case types AW, BW, FW, NW and SH are performed by [facility] [place], [place] SURGICAL PATHOLOGY & NON-GYNECOLOGIC CYTOPATHOLOGY REPORT DIAGNOSIS ANUS, HEMORRHOIDECTOMY: - HEMORRHOIDS. Specimen Description: Hemorrhoids. Operative Procedure: Hemorrhoidectomy. Patient Information/Histor y/Diagnosis: Hemorrhoid. Gross: Received in one container labeled Shae Burton., hemorrhoids are multiple piece of quesada-de la cruz mucosa ranging from 0.5 cm to 3.0 cm. The fragments were previously stained blue. Industrial Engineering Professor sections are submitted in block A1. [facility] 08.02.2008 11:58 am Microscopic: The slides are labeled [id number] Shae Burton. Sections show anal squamous mucosa overlying dilated vascular spaces, some of which are thrombosed, and with submucosal stroma characteristic of hemorrhoids. The features are benign. /[facility] 08.03.2008 12:14 pm Staging Form: No. ELECTRONIC SIGNATURE FOR TIN VIVAS MD- 08/03/08 04:25 pm INTERFACE SYSTEM 08/02/2008 9:27 AM CDT us Tremayne Chin MD PATHOLOGY/CYTOLOGY ORDERABLE S Final Result INTERFACE SYSTEM Refer to clinic/hospital department * HEMOGLOBIN AND HEMATOCRIT (08/02/2008 6:30 AM CDT) HEMOGLOBIN 12.4 11.8 - 14.8 g/dL [facility] HEMATOCRIT 38.2 35.5 - 44.0 % [facility] 08/02/2008 6:30 AM CDT 08/02/2008 6:42 AM CDT Narrative INTERFACE SYSTEM - 08/02/2008 6:49 AM CDT RM 28 PRE us Tremayne Chin MD HEMATOLOGY ORDERABLES Final Result INTERFACE SYSTEM Refer to clinic/hospital department [facility] CLIA# [id number] [address] [place], [place] [address] documented in this encounter Visit Diagnoses Diagnosis Unspecified hemorrhoids without mention of complication documented in this encounter Care Teams Confectionery Laboratory Manager Relationship Specialty Start Date End Date Bharat Rushing MD PCP - General Family Practice 05/24/16 documented as of this encounter
--- OUTSIDE RECORDS SUMMARY | 2024-04-10 13:54 | XMS_ITS | Encounter Summary ---
Author Organization [facility] Address [address] [place] [address] Care Team Providers Care Automotive Service Advisor Name Role Phone Bharat Rushing MD Primary Care Provider [phone] Encounter Details Date Type Department Care Team (Late Contact Info) Description 06/24/2006 Outpatient Historical [facility] [address] [facility] [address] [address] Nickolas Whelan MD [address] [facility] [address] [place] [address] Social History Tobacco Use Types Packs/Day Years Used Date Smoking Tobacco: Never Assessed Comments Unknown Sex and Gender Information Value Date Recorded Sex Assigned at Not on file Legal Sex Female 2:49 AM STORAGE BATTERY INSPECTOR Gender Identity Not on file Sexual Orientation Not on file documented as of this encounter Plan of Treatment Upcoming Encounters Date Type Department Care Team (Late Contact Info) Description 07/03/2024 10:30 AM CDT Office Visit [facility]STR[facility]OLOGY - [address] [facility] [address] [address] [facility] [address] [place] [address] [place] [address] [facility] [address] [place] [address] documented as of this encounter Visit Diagnoses Not on filedocumented in this encounter Care Teams Automotive Service Advisor Relationship Specialty Start Date End Date Bharat Rushing MD PCP - General Family Practice 05/24/16 documented as of this encounter
--- OUTSIDE RECORDS SUMMARY | 2024-04-10 13:54 | XMS_ITS | Encounter Summary ---
Author Organization [facility] Address [address] [place] [address] Phone Care Team Providers Care Research & Analytics Manager Name Role Phone Devon Peres DO Unavailable [phone] Aakash Hays MD Unavailable [phone] Tom Alfred MD Primary Care Provider [phone] Reason for Visit * Reason Comments Therapeutic Injection * Episode Based Medications (Routine) - Pending Review Specialty Diagnoses / Procedures Referred By Contac t Referred To Contact Diagnoses Iron deficiency anemia secondary to inadequate dietary iron intake Procedures VITAMIN B12 INJ RANGE DOSE 1-1,000 MCG Vit B12 Devon Peres DO [address] [place] [address] Phone: tel: fax: [facility] [address] [address] Phone: tel: fax: Referral ID Status Reason Start Date Expiration Date V isits Requested Visits Authorized [id number] Pending Review 09/12/2020 02/24/2027 1 1 Encounter Details Date Type Department Care Team (Latest Contact Info) Description 04/10/2024 11:30 AM SALESPERSON SHEET MUSIC Clinical Support [facility] [address] [address] Nurse, [facility] [place] Iron deficiency anemia secondary to inadequate dietary iron intake (Primary Dx) Social History Tobacco Use Types Packs/Day Years [...] on file documented as of this encounter Progress Notes * Aniya Montero CMA - 04/10/2024 11:30 AM CST Patient tolerated B12 injection well with no complaints. Bandaid applied. Patient's performance status has not changed since arrival to clinic. Patient discharged per AMBULATORY UNACCOMPANIED . SPERSON SHEET MUSIC documented in this encounter Plan of Treatment Upcoming Encounters Date Type Department Care Team (Late st Contact Info) Description 05/08/2024 11:30 AM CDT Clinical Support [facility] [address] [phone] Nurse, Gabbie VILLALPANDO 06/10/2024 11:30 AM CDT Lab [facility] [address] [phone] Lab, Gabbie Albre[place] 06/12/2024 11:00 AM CDT Office Visit [facility] [address] [phone] Devon Peres, [address] [place] [phone] 06/12/2024 11:15 AM CDT Clinical Support [facility] [address] [phone] Nurse, Gabbie Albrecht [place] documented as of this encounter Visit Diagnoses Diagnosis Iron deficiency anemia secondary to inadequate dietary iron intake- Primary documented in this encounter Administered Medications Inactive Administered Medications - up to 3 most recent administrations Medication Order MAR Action Action Date Dose Rate Site cyanocobalamin (VITAMIN B-12) injection 1,000 mcg 1,000 mcg, Subcutaneous, ONCE, 1 dose, On Sat04/10/24 at 1200Indications:Iron deficiency anemia secondary to inadequate dietary iron intake Given 04/10/2024 11:17 AM SALESPERSON SHEET MUSIC 1,000 mcg Right Lateral Upper Arm documented in this encounter Additional Health Concerns Assessment Noted Time PHQ-9 Depression Total Score: 0 12/13/19 11:37 AM CDT documented as of this encounter Care Teams Research & Analytics Manager Relationship Specialty Start Date End Date Tom Alfred MD [address] [id number] PCP - General Family Medicine 01/09/23 Devon Peres DO [address] [place] [phone] Consulting Physician Oncology 10/03/20 Aakash Hays MD [address] [facility] [address] [address] Gastroenterology 10/12/21 documented as of this encounter
--- OUTSIDE RECORDS SUMMARY | 2024-04-10 13:54 | XMS_ITS | Encounter Summary ---
Author Organization [facility] Address [address] [place] [address] Phone Care Team Providers Care Director Of Maintenance Name Role Phone Devon Peres DO Unavailable [phone] Aakash Hays MD Unavailable [phone] Tom Alfred MD Primary Care Provider Encounter Details Date Type Department Care Team (Late st Contact Info) Description 08/09/2023 Telephone [facility] [address] [place] [address] Devon Peres, DO [address] [place] [address] Social History Tobacco Use Types [...] on file documented as of this encounter Miscellaneous Notes * Telephone Encounter - Leila Osman - 08/09/2023 2:41 PM CDT Called and lvm about missed appt and to rs will send letter out. documented in this encounter Plan of Treatment Upcoming Encounters Date Type Department Care Team (Late st Contact Info) Description 05/08/2024 11:30 AM CDT Clinical Support [facility] [address] [phone] Nurse, [facility] 06/10/2024 11:30 AM CDT Lab [facility] [address] [phone] Lab, [facility] 06/12/2024 11:00 AM CDT Office Visit [facility] [address] [phone] Devon Peres DO [address] [place] [phone] 06/12/2024 11:15 AM CDT Clinical Support [facility] [address] [phone] Nurse, [facility] documented as of this encounter Visit Diagnoses Not on filedocumented in this encounter Additional Health Concerns Assessment Noted Time PHQ-9 Depression Total Score: 0 12/13/19 21 11:37 AM CDT documented as of this encounter Care Teams Director Of Maintenance Relationship Specialty Start Date End Date Tom Alfred MD [address] [address] PCP - General Family Medicine 01/09/23 Devon Peres DO [address] [place] [phone] Consulting Physician Oncology 10/03/20 Aakash Hays MD [address] [facility] [address] [address] Gastroenterology 10/12/21 documented as of this encounter
--- OUTSIDE RECORDS SUMMARY | 2024-04-10 13:54 | XMS_ITS | Encounter Summary ---
Author Organization [facility] Facility Care Team Providers Care Service Vehicle Operator Name Role Phone Bharat Rushing MD Primary Care Provider [phone] Aakash Cantu MD Unavailable [phone] Bhavya Zimmerman Primary Care Provider + Tom Alfred MD Primary Care Provider [phone] Encounter Details Date Type Department Care Team (Latest Contact Info) Description 11/23/2016 Orders Only [facility] Provider, MD Oli [address] [place] [address] Social History Tobacco Use Types Packs/Day Years Used Date Smoking Tobacco: Smoker, Current Status Unknown Alcohol Use Standard Drinks/Week Comments No 0 (1 standard drink = 0.6 oz pur e alcohol) Comments Unknown Sex and Gender Information Value Date Recorded Sex Assigned at Not on file Legal Sex Female 2:03 AM WEB CONTENT MANAGER Gender Identity Female 02/26/2020 12:09 PM WEB CONTENT MANAGER Sexual Orientation Straight 02/26/2020 12 :09 PM WEB CONTENT MANAGER documented as of this encounter Plan of Treatment Not on file documented as of this encounter Procedures Procedure Name Priority Date/Time Associated Diagnosis Comments PROCEDURE - RESULT 12/06/2016 12 :00 AM CDT documented in this encounter Results * PROCEDURE - RESULT (12/06/2016 12:00 AM CDT) Narrative 12/06/2016 12:00 AM CDT Ordered by an unspecified [...] COVID: Suspected 02/24/2020 02/24/2020 02/26/2020 10:36 PM WEB CONTENT MANAGER Respiratory Infection (ABIGAIL), contact + droplet Comment:Automatically added due to negative COVID-19 result. 02/26/2020 02/26/2020 03/11/2020 3:0 7 AM WEB CONTENT MANAGER COVID: Suspected 05/13/2020 05/13/2020 05/14/2020 12:15 PM CDT COVID: Suspected 03/06/2021 03/06/2021 03/07/2021 6:03 AM WEB CONTENT MANAGER COVID: Suspected 05/23/2021 05/23/2021 05/24/2021 3:05 AM [...] documented as of this encounter Care Teams Service Vehicle Operator Relationship Specialty Start Date End Date Bharat Rushing MD PCP - General Family Medicine 05/26/18 11/19/21 Bhavya Zimmerman PA PCP - General Family Medicine 11/20/21 11/14/22 Tom Alfred MD PCP - General Family Medicine 11/15/22 Aakash Cantu MD Referring Physician Gastroenterology 01/14/18 documented as of this encounter
--- OUTSIDE RECORDS SUMMARY | 2024-04-10 13:54 | XMS_ITS | Encounter Summary ---
Author Organization [facility] Address [address] [place] [address] Care Team Providers Care Urban Anthropologist Name Role Phone Bharat Rushing MD Primary Care Provider [phone] Tom Alfred MD Primary Care Provider [phone] Bharat Rushing MD Primary Care Provider [phone] Encounter Details Date Type Department Care Team (Late st Contact Info) Description 03/21/2021 Prep for Procedure [place] [facility] Pre-Admission Testing [place], [place] [id number] Mercy William MD [address] [facility] [address] [place], [place] [id number] Social History Tobacco Use Types Packs/Day Years Used Date Smoking Tobacco: Former Cigarettes 0.8 30 0 02/25/1974 - 02/26/2004 Smokeless Tobacco: Never Alcohol Use Standard Drinks/Week Comments No 0 (1 standard drink = 0.6 oz pur e alcohol) Comments No Sex and Gender Information Value Date Recorded Sex Assigned at Female 03/31/2024 3:00 PM SITE INTERPRETER Legal Sex Female 9:41 PM CDT Gender Identity Female 03/22/2021 4:52 AM SITE INTERPRETER Sexual Orientation Straight 03/22/2021 4: 52 AM SITE INTERPRETER COVID-19 Exposure Response Date Recorded In the last month, have you been in contact with someone who was confirmed or suspected to have Coronavirus / COVID-19? No / Unsure 03/22/2021 8:44 AM SITE INTERPRETER documented as of this encounter Plan of Treatment Not on file documented as of this encounter Results * PTT, PARTIAL THROMBOPLASTIN TIME (03/16/2021 2:05 PM SITE INTERPRETER) PTT 29.3 25.1 - 36.5 SEC 03/16/2021 3:06 PM SITE INTERPRETER [facility] 03/16/2021 2:05 PM SITE INTERPRETER Mercy William MD LABORATORY Final Result Performing Organization Address City/[facility]/ZIP Co de Phone Number [facility] [address] [place] [address], [place] [phone] * (ABNORMAL) PROTIME/INR, VENOUS (03/16/2021 2:05 PM SITE INTERPRETER) PROTIME 10.1(L) 10.2 - 12.9 SEC 03/16/2021 3:06 PM SITE INTERPRETER [facility] INR 0.9 03/16/2021 3:06 PM SITE INTERPRETER [facility] Comment: Recommended INR Therapeutic Goals: 2.0-3.0 Routine Therapy 2.5-3.5 Mechanical Prosthetic Valves (High Risk) 03/16/2021 2:05 PM SITE INTERPRETER Mercy William MD LABORATORY Final Result [facility] [address] [place] [address], [place] [phone] * TYPE & SCREEN (03/16/2021 2:05 PM SITE INTERPRETER) ABO/RH O POSITIVE 03/16/2021 3:48 PM [facility] ANTIBODY SCREEN NEGATIVE 03/16/2021 3:48 PM [facility] SAMPLE EXPIRATION 03/24/2021,2 359 03/21/2021 8:03 AM [facility] COMMENT NO HISTORY OF TRANSFUSIONS , OR ANTIBODIES, NEW SPECIMEN NOT NEEDED 03/21/2021 8:03 AM [facility] 03/16/2021 2:05 PM SITE INTERPRETER us Mercy William MD BLOOD BANK TEST ORDERABLES F inal Result [facility] [address] [place] [address], [place] [phone] * (ABNORMAL) BASIC METABOLIC PANEL (03/16/2021 2:05 PM SITE INTERPRETER) GLUCOSE 86 70 - 99 MG/DL 03/16/2021 3:04 PM [facility] BUN 13 7 - 18 MG/DL 03/16/2021 3:04 PM [facility] CREATININE S/P/B 0.48(L) 0.55 - 1.02 MG/DL 03/16/2021 3:04 PM [facility] SODIUM S/P/B 145 136 - 145 MMOL/L 03/16/2021 3:04 PM [facility] POTASSIUM S/P/B 3.8 3.5 - 5.1 MMOL/L 03/16/2021 3:04 PM [facility] CHLORIDE S/P/B 120(H) 100 - 108 MMOL/L 03/16/2021 3:04 PM [facility] CO2 22.4 21 - 32 MMOL/L 03/16/2021 3:04 PM [facility] CALCIUM S/P/B 8.6 8.5 - 10.1 MG/DL 03/16/2021 3:04 PM SITE INTERPRETER [facility] ANION GAP 2.6(L) 5 - 15 MMOL/L 03/16/2021 3:04 PM [facility] BUN CREATININE RATIO 27.1(H) 6 - 26 03/16/2021 3:04 PM [facility] EGFR NON-AFR. AMER. >90 >90 ML/MIN/1.7 3 M2 03/16/2021 3:04 PM [facility] EGFR AFR. AMER. >90 >90 ML/MIN/1.7 3 M2 03/16/2021 3:04 PM [facility] Comment: NOTE: eGFR is not calculated for patients <18 years of age. This is an estimated GFR (CKD EPI) and should not be used for calculating drug doses. 03/16/2021 2:05 PM SITE INTERPRETER Mercy William MD LABORATORY Final Result [facility] [address] [place] [address], [place] [phone] * (ABNORMAL) CBC W/DIFF AUTOMATED (03/16/2021 2:05 PM SITE INTERPRETER) WBC 7.7 4.5 - 11.0 x10'3/uL 03/16/2021 3:15 PM SITE INTERPRETER [facility] RBC 3.13(L) 4.20 - 5.40 x10'6/uL 03/16/2021 3:15 PM [facility] HGB 9.6(L) 12.0 - 16.0 G/DL 03/16/2021 3:15 PM SITE INTERPRETER [facility] HCT 31.6(L) 38.0 - 48.0 % 03/16/2021 3:15 PM [facility] MCV 101.0(H) 81.0 - 99.0 FL 03/16/2021 3:15 PM [facility] MCH 30.7 27.0 - 31.0 PG 03/16/2021 3:15 PM [facility] MCHC 30.4(L) 32.0 - 36.0 G/DL 03/16/2021 3:15 PM [facility] RDW 19.6(H) 11.5 - 14.5 % 03/16/2021 3:15 PM [facility] PLT 453(H) 130 - 400 x10'3/uL 03/16/2021 3:15 PM [facility] MPV 9.9 9.3 - 12.2 FL 03/16/2021 3:15 PM [facility] DIFFERENTIAL TYPE AUTOMATED DIFFERENTIAL 03/16/2021 3:24 PM [facility] NEUTROPHILS % 68.3 % 03/16/2021 3:24 PM [facility] LYMPHOCYTES % 19.4 % 03/16/2021 3:24 PM [facility] MONOCYTES % 8.6 % 03/16/2021 3:24 PM [facility] EOSINOPHILS 1.4 % 03/16/2021 3:24 PM [facility] BASOPHILS 1.8 % 03/16/2021 3:24 PM [facility] IMMATURE GRANS % 0.5 % 03/16/19 3:24 PM [facility] ABS. NEUTROPHILS TOTAL 5.26 1.80 - 7.70 x10'3/uL 03/16/2021 3:24 PM SITE INTERPRETER [facility] ABS. LYMPHOCYTES 1.49 1.00 - 4.80 x10'3/uL 03/16/2021 3:24 PM SITE INTERPRETER [facility] ABS. MONOCYTES 0.66 0.24 - 0.86 x10'3/uL 03/16/2021 3:24 PM SITE INTERPRETER [facility] ABS. EOSINOPHILS 0.11 0.04 - 0.36 x10'3/uL 03/16/2021 3:24 PM SITE INTERPRETER [facility] ABS. BASOPHILS 0.14(H) 0.01 - 0.08 x10'3/uL 03/16/2021 3:24 PM SITE INTERPRETER [facility] ABS. IMMATURE GRANULOCYTES 0.04 0.00 - 0.49 x10'3/uL 03/16/2021 3:24 PM [facility] RBC MORPHOLOGY SLIDE REVIEWED 2021 3:24 PM SITE INTERPRETER [facility] ANISO 1+ 03/16/2021 3:24 PM SITE INTERPRETER [facility] PLT EST. INCREASED 03/16/2021 3:24 PM [facility] PATHOLOGIST COMMENT PATHOLOGIST REVIEW TO FOLLOW. 03/16/2021 3:24 PM SITE INTERPRETER [facility] 03/16/2021 2:05 PM SITE INTERPRETER us Mercy William MD LABORATORY Final Result [facility] [address] [place] [address], [place] [phone] * ECG 12-Lead (03/16/2021 1:59 PM SITE INTERPRETER) 03/16/2021 1:59 PM SITE INTERPRETER Narrative [facility] - 03/17/2021 11:32 PM SITE INTERPRETER [address] Test Date: 2021-03-16 Pat Name: SHAE BECKMAN Department: Room: Gender: Female Landscape Architecture Teacher: JENNIFER : 1955 Requested By: MERCY WILLIAM Order Number: [id number] Reading MD: Blas Marroquin Measurements Intervals [place] Rate: 71 P: 66 SD: 138 QRS: 40 QRSD: 80 T: 44 QT: 388 QTc: 423 Interpretive Statements SINUS RHYTHM Compared to ECG 10/31/2014 18:10:48 No significant changes INTERPRETER Procedure Note Blas Marroquin MD - 03/17/[address] Test Date: 2021-03-16 Pat Name: SHAE JON Department: Room: Gender: Female Landscape Architecture Teacher: JENNIFER : 1955 Requested By: MERCY WILLIAM Order Number: [id number] Reading MD: Blas Marroquin Measurements Intervals [place] Rate: 71 P: 66 SD: 138 QRS: 40 QRSD: 80 T: 44 QT: 388 QTc: 423 Interpretive Statements SINUS RHYTHM Compared to ECG 10/31/2014 18:10:48 No significant changes INTERPRETER us Mercy William MD ECG ORDERABLES Final Result [facility] RAD * URINALYSIS WI REFLEX TO CULTURE (03/16/2021 1:35 PM SITE INTERPRETER) SPECIMEN TYPE URINE CLEAN CATCH 03/16/2021 1:36 PM SITE INTERPRETER [facility] COLOR (U) LIGHT YELLOW 03/16/2021 2:55 PM [facility] TRANSPARENCY CLEAR 03/16/2021 2:55 PM [facility] SPECIFIC GRAVITY (U) 1.029 1.001 - 1.030 03/16/2021 2:55 PM [facility] U PH 6.5 5.0 - 9.0 03/16/2021 2:55 PM [facility] LEUKOCYTES (U) NEGATIVE NEGATIVE 03/16/2021 2:55 PM [facility] NITRITES NEGATIVE NEGATIVE 03/16/2021 2:55 PM [facility] PROTEIN (U) 20 <30 MG/DL 03/16/2021 2:55 PM [facility] URINE GLUCOSE NORMAL NORMAL MG/DL 03/16/2021 2:55 PM [facility] KETONES MG/DL (U) NEGATIVE NEGATIVE MG/DL 03/16/2021 2:55 PM [facility] UROBILINOGEN NORMAL NORMAL MG/DL 03/16/2021 2:55 PM [facility] BILIRUBIN (U) NEGATIVE NEGATIVE MG/DL 03/16/2021 2:55 PM [facility] BLOOD (U) NEGATIVE NEGATIVE 03/16/2021 2:55 PM [facility] CULTURE & SENSITIVITY INDICATED? CULTURE IS NOT INDICATED 03/16/2021 2:55 PM [facility] MUCUS RARE /LPF 03/16/2021 2:55 PM [facility] WBC/HPF 1 <6 /HPF 03/16/2021 2:55 PM [facility] RBC/HPF <1 <6 /HPF 03/16/2021 2:55 PM [facility] URINE SPECIMEN OBTAINED BY CLEAN CATCH PROCEDURE / Unknown 03/16/2021 1:35 PM SITE INTERPRETER us Mercy William MD URINE ORDERABLES Final Resul t [facility] [address] [place] [address], documented in this encounter Visit Diagnoses Diagnosis Lumbar stenosis Spinal stenosis, lumbar region, without neurogenic claudication Lumbar stenosis- Primary Spinal stenosis, lumbar region, without neurogenic claudication documented in this encounter Additional Health Concerns Infection Onset Date Last Indicated Resolved Time 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
--- OUTSIDE RECORDS SUMMARY | 2024-04-10 13:54 | XMS_ITS | Encounter Summary ---
Author Organization [facility] Address [address] [place] [address] Care Team Providers Care Nuclear Engineering Technician Name Role Phone Bharat Rushing MD Primary Care Provider Encounter Details Date Type Department Care Team (Late Contact Info) Description 11/21/2007 Outpatient Historical HIS MRI DEPT Анна, Toy Ha MD [address] [facility] [address] [place] [address] Lump or Mass in Breast Social History Tobacco Use Types Packs/Day Years Used Date Smoking Tobacco: Never Assessed Comments Unknown Sex and Gender Information Value Date Recorded Sex Assigned at Not on file Legal Sex Female 2:49 AM THROW OUT CLERK Gender Identity Not on file Sexual Orientation Not on file documented as of this encounter Plan of Treatment Upcoming Encounters Date Type Department Care Team (Late st Contact Info) Description 07/03/2024 10:30 AM CDT Office Visit [facility] GASTROENTEROLOGY - [address] [facility] [address] [address] [facility] [address] [place] [address] [place] [address] [facility] [address] [place] [address] documented as of this encounter Visit Diagnoses Diagnosis Lump or mass in breast documented in this encounter Care Teams Nuclear Engineering Technician Relationship Specialty Start Date End Date Bharat Rushing MD PCP - General Family Practice 05/24/16 documented as of this encounter
--- OUTSIDE RECORDS SUMMARY | 2024-04-10 13:54 | XMS_ITS | Encounter Summary ---
Author Organization [facility] Care Team Providers Care Snack Steward Name Role Phone Bharat Rushing MD Primary Care Provider [phone] Aakash Cantu MD Unavailable [phone] Bhavya Zimmerman Primary Care Provider + Tom Alfred MD Primary Care Provider [phone] Encounter Details Date Type Department Care Team (Latest Contact Info) Description 10/23/2016 Orders Only [facility] CLINCONV Provider, MD Oli [address] [place] [address] Social History Tobacco Use Types Packs/Day Years Used Date Smoking Tobacco: Smoker, Current Status Unknown Alcohol Use Standard Drinks/Week Comments No 0 (1 standard drink = 0.6 oz pur e alcohol) Comments Unknown Sex and Gender Information Value Date Recorded Sex Assigned at Not on file Legal Sex Female 2:03 AM BINDER CUTTER Gender Identity Female 02/26/2020 12:09 PM BINDER CUTTER Sexual Orientation Straight 02/26/2020 12 :09 PM BINDER CUTTER documented as of this encounter Plan of Treatment Not on file documented as of this encounter Procedures Procedure Name Priority Date/Time Associated Diagnosis Comments PROCEDURE - RESULT 10/26/2016 12 :00 AM CDT COLONOSCOPY - SCAN 10/23/2016 12 :00 AM CDT documented in this encounter Results * PROCEDURE - RESULT (10/26/2016 12:00 AM CDT) Narrative 10/26/2016 12:00 AM CDT Ordered by an unspecified provider. us Historical Provider Final Res ult * COLONOSCOPY - SCAN (10/23/2016 12:00 AM CDT) Narrative 10/23/2016 12:00 AM CDT Ordered by an unspecified provider. us Historical Provider Final Res ult documented in this encounter Visit Diagnoses Not on filedocumented in this encounter Additional Health Concerns Infection Onset Date Last Indicated Resolved Time MRSA Comment:LT FOOT '. 04/02/2012 04/01/2012 10/12/2020 5:00 AM CDT VRE Comment:Germ watcher auto flagging 10/05/2013 11/29/201610/12 5:00 AM CDT C. difficile Comment:08/11/2015 08/10/2015 06/25/2021 2:56 PM C DT COVID: Suspected 02/24/2020 02/24/2020 02/26/2020 10:36 PM BINDER CUTTER Respiratory Infection (ABIGAIL), contact + droplet Comment:Automatically added due to negative COVID-19 result. 02/26/2020 02/26/2020 03/11/2020 3:0 7 AM BINDER CUTTER COVID: Suspected 05/13/2020 05/13/2020 05/14/2020 12:15 PM CDT COVID: Suspected 03/06/2021 03/06/2021 03/07/2021 6:03 AM BINDER CUTTER COVID: Suspected 05/23/2021 05/23/2021 05/24/2021 3:05 AM [...] documented as of this encounter Care Teams Snack Steward Relationship Specialty Start Date End Date Bharat Rushing MD PCP - General Family Medicine 05/26/18 11/19/21 Bhavya Zimmerman PA PCP - General Family Medicine 11/20/21 11/14/22 Tom Alfred MD PCP - General Family Medicine 11/15/22 Aakash Cantu MD Referring Physician Gastroenterology 01/14/18 documented as of this encounter
--- OUTSIDE RECORDS SUMMARY | 2024-04-10 13:54 | XMS_ITS | Clinical Summary ---
Author Organization [facility] Address [address] [place] [address] Care Team Providers Care Topographical Surveyor Name Role Phone Uzair Nelson MD Primary Care Provider [phone] Source Comments [facility],non-owned Affiliates and Associated Physician Practices is amultiple site organization consisting of ambulatory clinics and hospital sitesin [place], [place], [place] and [place]. This disclosure is being madepursuant to the Care Everywhere program and may not contain all information available regarding this patient. Last updated 17.[facility] Allergies Active Allergy Reactions Criticality Noted Date [...] before meals & nightly Active pancrelipase (CREON) 81784 UNITS capsule Take 2 Caps by mouth 3 times daily with meals Active doxycycline (VIBRAMYCIN) 100 MG capsule Take 100 mg by mouth once daily Active cycloSPORINE (RESTASIS) 0.05 % ophthalmic suspension Instill 1 Drop into both eyes 2 times daily Active ibuprofen (MOTRIN) 800 MG tablet Take 800 mg by mouth every 6 hours as needed for Pain Active Family History Medical History Relation Name Comments Heart Disease Brother 3 heart attack s with siblings in 50s Hypertension Father Breast Cancer at or under age 50 Maternal Grandmother Breast Cancer at or under age 50 Mother Breast Cancer at or under age 50 Sister Relation Name Status Comments Brother Father Maternal Grandmother Mother Sister Social History Tobacco Use Types Packs/Day Years [...] Comments Blood Pressure 118/68 03/23/2011 8:46 PM [employer] [facility] [facility] Pulse 78 03/23/2011 8:46 PM [employer] [facility] [facility] Temperature 36.7 C (98 F) 03/23/2011 4:05 PM [employer] [facility] [facility] Respiratory Rate 18 03/23/2011 8:46 PM [employer] [facility] [facility] Oxygen Saturation 100% 03/23/2011 8:46 PM [facility] [facility] [facility] Inhaled Oxygen Concentration - - Weight 40.4 kg (89 lb) 02/14/2016 10:40 AM [employer] [facility] [facility] Height 157.5 cm (5' 2 ) 02/14/2016 10:40 AM [employer] [facility] [facility] Body Mass Index 16.28 02/14/2016 10:40 AM [employer] Plan of Treatment Health Maintenance Due Date Last Done Comments BONE DENSITY TESTING 1955 COLOGUARD (AGES 45-75) - COL ON CA SCREENING 1955 COLON MONITORING 1955 COLONOSCOPY - COLON CA SCREENING 1955 CT COLONOGRAPHY - COLON CA SCREENING 1955 Colorectal Cancer Screening 1955 FIT - COLON CA SCREENING 1955 FLEX SIG - COLON CA SCREENING 1955 LIPID TESTING 1955 MAMMOGRAM 1955 MEDICARE AWV 12 MONTHS 1955 HEPATITIS C SCREENING 08/27/1972 DTAP/TDAP/TD VACCINES (1 - Tdap) 1973 PNEUMOCOCCAL VACCINE 50+ (1 of 1 - PCV) 2004 ZOSTER VACCINE (1 of 2) 2004 COVID-19 VACCINE (1 - 2023-2 5 season) 2023 INFLUENZA VACCINE (#1) 2023 DEPRESSION SCREENING 02/26/2024 Respiratory Syncytial Virus (RSV) Vaccine Pt: or over 60 yrs (1 - 1-dose 75+ series) 2029 HEPATITIS B VACCINE Aged Out No longe r eligible based on patient's age to complete this topic HIB VACCINE Aged Out No longer eligi ble based on patient's age to complete this topic HPV VACCINE Aged Out No longer eligi ble based on patient's age to complete this topic MENINGOCOCCAL (Group B) VACCINE Aged Out No longer eligible based on patient's age to complete this topic MENINGOCOCCAL VACCINE Aged Out No shanon earl eligible based on patient's age to complete this topic Care Teams Topographical Surveyor Relationship Specialty Start Date End Date Uzair Nelson MD [address] [place] [address] PCP - General Internal Medicine 01/31/16
--- OUTSIDE RECORDS SUMMARY | 2024-04-10 13:54 | XMS_ITS | Encounter Summary ---
Author Organization [facility] Facility Care Team Providers Care Ethanol Quality Leader Name Role Phone Bharat Rushing MD Primary Care Provider [phone] Aakash Cantu MD Unavailable [phone] Bhavya Zimmerman Primary Care Provider + Tom Alfred MD Primary Care Provider [phone] Encounter Details Date Type Department Care Team (Latest Contact Info) Description 01/21/2018 Orders Only [facility] CLINCONV Provider, MD Oli [address] [place] [address] Social History Tobacco Use Types Packs/Day Years Used Date Smoking Tobacco: Former Smokeless Tobacco: Never Alcohol Use Standard Drinks/Week Comments No 0 (1 standard drink = 0.6 oz pur e alcohol) Comments Unknown Sex and Gender Information Value Date Recorded Sex Assigned at Not on file Legal Sex Female 2:03 AM ENVIRONMENTAL ANALYST Gender Identity Female 02/26/2020 12:09 PM ENVIRONMENTAL ANALYST Sexual Orientation Straight 02/26/2020 12 :09 PM ENVIRONMENTAL ANALYST documented as of this encounter Plan of Treatment Not on file documented as of this encounter Procedures Procedure Name Priority Date/Time Associated Diagnosis Comments SCAN - PATHOLOGY 01/21/2018 12:0 0 AM ENVIRONMENTAL ANALYST documented in this encounter Results * SCAN - PATHOLOGY (01/21/2018 12:00 AM ENVIRONMENTAL ANALYST) Narrative 01/21/2018 12:00 AM ENVIRONMENTAL ANALYST Ordered by an unspecified provider. us Historical [...] COVID: Suspected 02/24/2020 02/24/2020 02/26/2020 10:36 PM ENVIRONMENTAL ANALYST Respiratory Infection (ABIGAIL), contact + droplet Comment:Automatically added due to negative COVID-19 result. 02/26/2020 02/26/2020 03/11/2020 3:0 7 AM ENVIRONMENTAL ANALYST COVID: Suspected 05/13/2020 05/13/2020 05/14/2020 12:15 PM CDT COVID: Suspected 03/06/2021 03/06/2021 03/07/2021 6:03 AM ENVIRONMENTAL ANALYST COVID: Suspected 05/23/2021 05/23/2021 05/24/2021 3:05 AM [...] documented as of this encounter Care Teams Ethanol Quality Leader Relationship Specialty Start Date End Date Bharat Rushing MD [phone] (Work) PCP - General Family Medicine 05/26/18 11/19/21 Bhavya Zimmerman PA PCP - General Family Medicine 11/20/21 11/14/22 Tom Alfred MD PCP - General Family Medicine 11/15/22 Aakash Cantu MD Referring Physician Gastroenterology 01/14/18 documented as of this encounter
--- OUTSIDE RECORDS SUMMARY | 2024-04-10 13:54 | XMS_ITS | Encounter Summary ---
Author Organization [facility] Facility Care Team Providers Care Proofer Apprentice Name Role Phone Bharat Rushing MD Primary Care Provider [phone] Aakash Cantu MD Unavailable [phone] Bhavya Zimmerman Primary Care Provider + Tom Alfred MD Primary Care Provider [phone] Encounter Details Date Type Department Care Team (Latest Contact Info) Description 05/09/2018 Orders Only [facility] CLINCONV Provider, MD Oli [address] [place] [address] Social History Tobacco Use Types Packs/Day Years Used Date Smoking Tobacco: Former Smokeless Tobacco: Never Alcohol Use Standard Drinks/Week Comments No 0 (1 standard drink = 0.6 oz pur e alcohol) Comments Unknown Sex and Gender Information Value Date Recorded Sex Assigned at Not on file Legal Sex Female 2:03 AM LOADING DOCK HELPER Gender Identity Female 02/26/2020 12:09 PM LOADING DOCK HELPER Sexual Orientation Straight 02/26/2020 12 :09 PM LOADING DOCK HELPER documented as of this encounter Plan of Treatment Not on file documented as of this encounter Procedures Procedure Name Priority Date/Time Associated Diagnosis Comments SCAN - PATHOLOGY 05/09/2018 12:0 0 AM CDT documented in this encounter Results * SCAN - PATHOLOGY (05/09/2018 12:00 AM CDT) Narrative 05/09/2018 12:00 AM CDT Ordered by an unspecified [...] COVID: Suspected 02/24/2020 02/24/2020 02/26/2020 10:36 PM LOADING DOCK HELPER Respiratory Infection (ABIGAIL), contact + droplet Comment:Automatically added due to negative COVID-19 result. 02/26/2020 02/26/2020 03/11/2020 3:0 7 AM LOADING DOCK HELPER COVID: Suspected 05/13/2020 05/13/2020 05/14/2020 12:15 PM CDT COVID: Suspected 03/06/2021 03/06/2021 03/07/2021 6:03 AM LOADING DOCK HELPER COVID: Suspected 05/23/2021 05/23/2021 05/24/2021 3:05 AM [...] documented as of this encounter Care Teams Proofer Apprentice Relationship Specialty Start Date End Date Bharat Rushing MD [phone] (Work) PCP - General Family Medicine 05/26/18 11/19/21 Bhavya Zimmerman PA PCP - General Family Medicine 11/20/21 11/14/22 Tom Alfred MD PCP - General Family Medicine 11/15/22 Aakash Cantu MD Referring Physician Gastroenterology 01/14/18 documented as of this encounter
--- OUTSIDE RECORDS SUMMARY | 2024-04-10 13:54 | XMS_ITS | Encounter Summary ---
Author Organization [facility] Address [address] [place] [address] Phone Care Team Providers Care Bulb Tester Name Role Phone Alejandro Yuan MD Unavailable [phone] Bharat Rushing MD Primary Care Provider [phone] Devon Peres DO Unavailable [phone] Aakash Hays MD Unavailable [phone] Tom Alfred MD Primary Care Provider [phone] Encounter Details Date Type Department Care Team (Late st Contact Info) Description 07/07/2021 Telephone [facility] [address] [place] [address] Devon Peres, DO [address] [place] [address] Social History Tobacco Use Types Packs/Day Years Used Date Smoking Tobacco: Former Cigarettes 0.5 24.3 0 11/08/1979 - 02/26/2004 Smokeless Tobacco: Never Alcohol Use Standard Drinks/Week Comments No 0 (1 standard drink = 0.6 oz pur e alcohol) PHQ-2 Answer Date Recorded Total Score - Questions 1-9 0 04/0 02/2021 Comments Unknown Sex and Gender Information Value Date Recorded Sex Assigned at Not on file Legal Sex Female 10:46 AM CDT Gender Identity Not on file Sexual Orientation Not on file COVID-19 Exposure Response Date Recorded In the last 10 days, have yo u been in contact with someone who was confirmed or suspected to have Coronavirus/COVID-19? No / Unsure 06/07/2021 10:46 AM CDT documented as of this encounter Miscellaneous Notes * Telephone Encounter - Bernadette Giordano - 07/07/2021 11:45 AM CDT CALL PT TO [facility] HER FOR APPT. PT STATED SHE IN [facility] documented in this encounter Plan of Treatment Upcoming Encounters Date Type Department Care Team (Late st Contact Info) Description 05/08/2024 11:30 AM CDT Clinical Support [facility] [address] [phone] Nurse, [facility] 06/10/2024 11:30 AM CDT Lab [facility] [address] [phone] Lab, [facility] 06/12/2024 11:00 AM CDT Office Visit [facility] [address] [phone] Devon Peres, DO [address] [place] [phone] 06/12/2024 11:15 AM CDT Clinical Support [facility] [address] [phone] Nurse, [facility] documented as of this encounter Visit Diagnoses Not on filedocumented in this encounter Additional Health Concerns Assessment Noted Time PHQ-9 Depression Total Score: 0 12/13/19 21 11:37 AM CDT documented as of this encounter Care Teams Bulb Tester Relationship Specialty Start Date End Date Bharat Rushing MD [address] [address] PCP - General Family Medicine 03/27/16 01/08/23 Tom Alfred MD [address] [facility] [address] [place], [place] [id number] PCP - General Family Medicine 01/09/23 Alejandro Yuan MD [address] [facility] [address] [place] [address] Gastroenterology 12/21/15 10/11/21 Devon Peres DO [address] [place] [phone] Consulting Physician Oncology 10/03/20 Aakash Hays MD [address] [facility] [address] [place] [address] Gastroenterology 10/12/21 documented as of this encounter
--- OUTSIDE RECORDS SUMMARY | 2024-04-10 13:54 | XMS_ITS | Encounter Summary ---
Author Organization [facility] Address [address] [place] [address] Phone Care Team Providers Care Television Cabinet Finisher Name Role Phone Devon Peres DO Unavailable [phone] Aakash Hays MD Unavailable [phone] Tom Alfred MD Primary Care Provider [phone] Encounter Details Date Type Department Care Team (Late st Contact Info) Description 02/21/2024 Telephone [facility] [address] [place] [address] Devon Peres, DO [address] [place] [address] Social History Tobacco Use Types [...] AM CDT Clinical Support [facility] [address] [phone] Nurse, Cc [facility] 06/10/2024 11:30 AM CDT Lab [facility] [address] [phone] Lab, [facility] 06/12/2024 11:00 AM CDT Office Visit [facility] [address] [phone] Devon Peres DO [address] [place] [phone] 06/12/2024 11:15 AM CDT Clinical Support [facility] [address] [phone] Nurse, [facility] documented as of this encounter Visit Diagnoses Not on filedocumented in this encounter Additional Health Concerns Assessment Noted Time PHQ-9 Depression Total Score: 0 12/13/19 11:37 AM CDT documented as of this encounter Care Teams Television Cabinet Finisher Relationship Specialty Start Date End Date Tom Alfred MD [address] [address] PCP - General Family Medicine 01/09/23 Devon Peres DO [address] [place] [phone] Consulting Physician Oncology 10/03/20 Aakash Hays MD [address] [facility] [address] [place] [address] Gastroenterology 10/12/21 documented as of this encounter
--- OUTSIDE RECORDS SUMMARY | 2024-04-10 13:54 | XMS_ITS | Encounter Summary ---
Author Organization [facility] Facility Care Team Providers Care Farm Loan Representative Name Role Phone Bharat Rushing MD Primary Care Provider [phone] Aakash Cantu MD Unavailable [phone] Bhavya Zimmerman Primary Care Provider + Tom Alfred MD Primary Care Provider [phone] Encounter Details Date Type Department Care Team (Latest Contact Info) Description 05/07/2018 Orders Only [facility] Provider, MD Oli [address] [place] [address] Social History Tobacco Use Types Packs/Day Years Used Date Smoking Tobacco: Former Smokeless Tobacco: Never Alcohol Use Standard Drinks/Week Comments No 0 (1 standard drink = 0.6 oz pur e alcohol) Comments Unknown Sex and Gender Information Value Date Recorded Sex Assigned at Not on file Legal Sex Female 2:03 AM SQL DATA ARCHITECT Gender Identity Female 02/26/2020 12:09 PM SQL DATA ARCHITECT Sexual Orientation Straight 02/26/2020 12 :09 PM SQL DATA ARCHITECT documented as of this encounter Plan of [...] COVID: Suspected 02/24/2020 02/24/2020 02/26/2020 10:36 PM SQL DATA ARCHITECT Respiratory Infection (ABIGAIL), contact + droplet Comment:Automatically added due to negative COVID-19 result. 02/26/2020 02/26/2020 03/11/2020 3:0 7 AM SQL DATA ARCHITECT COVID: Suspected 05/13/2020 05/13/2020 05/14/2020 12:15 PM CDT COVID: Suspected 03/06/2021 03/06/2021 03/07/2021 6:03 AM SQL DATA ARCHITECT COVID: Suspected 05/23/2021 05/23/2021 05/24/2021 3:05 AM [...] documented as of this encounter Care Teams Farm Loan Representative Relationship Specialty Start Date End Date Bharat Rushing MD [phone] (Work) PCP - General Family Medicine 05/26/18 11/19/21 Bhavya Zimmerman PA PCP - General Family Medicine 11/20/21 11/14/22 Tom Alfred MD PCP - General Family Medicine 11/15/22 Aakash Cantu MD Referring Physician Gastroenterology 01/14/18 documented as of this encounter
--- OUTSIDE RECORDS SUMMARY | 2024-04-10 13:54 | XMS_ITS | Encounter Summary ---
Author Organization [facility] Address [address] [place] [address] Care Team Providers Care Glove Turner And Former Name Role Phone Bharat Rushing MD Primary Care Provider [phone] Encounter Details Date Type Department Care Team (Latest Contact Info) Description 06/24/2006 Inpatient Historical [facility] Toy Jj MD [address] [facility] [address] [place] [address] Other and Unspecified Ovarian Cyst (Primary Dx) Social History Tobacco Use Types Packs/Day Years Used Date Smoking Tobacco: Never Assessed Comments Unknown Sex and Gender Information Value Date Recorded Sex Assigned at Not on file Legal Sex Female 2:49 AM ADVERTISING INSERTER Gender Identity Not on file Sexual Orientation Not on file documented as of this encounter Plan of Treatment Upcoming Encounters Date Type Department Care Team (Late st Contact Info) Description 07/03/2024 10:30 AM CDT Office Visit [facility] - [address] [facility] [address] [address] [facility] [address] [place] [address] [place] [address] [facility] [address] [place] [address] documented as of this encounter Procedures Procedure Name Priority Date/Time Associated Diagnosis Comments HEMOGLOBIN AND HEMATOCRIT Routine 06/14/2006 1:14 PM CDT documented in this encounter Results * HEMOGLOBIN AND HEMATOCRIT (06/14/2006 1:14 PM CDT) HEMOGLOBIN 12.6 11.8 - 14.8 g/dL INTERFACE SYSTEM HEMATOCRIT 38.9 35.5 - 44.0 % INTERFACE SYSTEM 06/14/2006 1:14 PM CDT Toy Jj MD HEMATOLOGY ORDERABLES Edited INTERFACE SYSTEM Refer to clinic/hospital department documented in this encounter Visit Diagnoses Diagnosis Other and unspecified ovarian cyst- Primary documented in this encounter Care Teams Glove Turner And Former Relationship Specialty Start Date End Date Bharat Rushing MD PCP - General Family Practice 05/24/16 documented as of this encounter
--- OUTSIDE RECORDS SUMMARY | 2024-04-10 13:54 | XMS_ITS | Patient Health Summary ---
Author Organization [facility] Address [address] [place] [address] Care Team Providers Care Retail Director Name Role Phone Uzair Nelson MD Primary Care Provider [phone] Note from [facility],non-owned Affiliates and Associated Physician Practices is amultiple site organization consisting of ambulatory clinics and hospital sitesin [place], [place], [place] and [place]. This disclosure is being madepursuant to the Care Everywhere program and may not contain all information available regarding this patient. Last updated 17.[facility] Allergies * Erythromycin * Contrast-Iodinated Agents For Ct/Other(Urticaria) -Medium Criticality * Levofloxacin * Penicillins * Metoclopramide(Itching) * Sulfa Drugs(Itching) * Ketorolac(Rash) -Medium Criticality Medications * Be aware that medications may not be up to date on this document. Alwaysverify current medications with the patient. * pantoprazole EC (PROTONIX) 20 MG tablet Take 20 mg by mouth 2 times daily * ALPRAZolam (XANAX) 0.25 MG tablet Take 0.25 mg by mouth 3 times daily as needed for Anxiety * diphenhydrAMINE (BENADRYL) 25 MG capsule Take 25 mg by mouth nightly as needed for Itching * zolpidem (AMBIEN) 5 MG tablet Take 5 mg by mouth nightly as needed for Insomnia * pregabalin (LYRICA) 75 MG capsule Take 75 mg by mouth 2 times daily * sucralfate (CARAFATE) 1 GM tablet Take 1 g by mouth 4 times daily - before meals & nightly * pancrelipase (CREON) 90775 UNITS capsule Take 2 Caps by mouth 3 times daily with meals * doxycycline (VIBRAMYCIN) 100 MG capsule Take 100 mg by mouth once daily * cycloSPORINE (RESTASIS) 0.05 % ophthalmic suspension Instill 1 Drop into both eyes 2 times daily * ibuprofen (MOTRIN) 800 MG tablet Take 800 mg by mouth every 6 hours as needed for Pain Social History Tobacco Use Types Packs/Day Years [...] Comments Blood Pressure 118/68 03/23/2011 8:46 PM POULTRY HATCHERY MANAGER Pulse 78 03/23/2011 8:46 PM POULTRY HATCHERY MANAGER Temperature 36.7 C (98 F) 03/23/2011 4:05 PM POULTRY HATCHERY MANAGER Respiratory Rate 18 03/23/2011 8:46 PM POULTRY HATCHERY MANAGER Oxygen Saturation 100% 03/23/2011 8:46 PM POULTRY HATCHERY MANAGER Inhaled Oxygen Concentration - - Weight 40.4 kg (89 lb) 02/14/2016 10:40 AM POULTRY HATCHERY MANAGER Height 157.5 cm (5' 2 ) 02/14/2016 10:40 AM POULTRY HATCHERY MANAGER Body Mass Index 16.28 02/14/2016 10:40 AM POULTRY HATCHERY MANAGER Procedures * ESOPHAGUS, GASTROESOPHAGEAL REFLUX TEST; WITH NASAL CATHETER PH ELECTRODE PLACEMENT(Performed 02/14/2016) Performed for Gastroesophageal reflux disease, esophagitis presence not specified * MOTILITY ESOPHAGEAL(Performed 02/14/2016) Performed for Gastroesophageal reflux disease, esophagitis presence not specified * XR CHEST 2VW(Performed 05/29/2011) Performed for Cough * XR HIP LEFT 2VW OR MORE(Performed 05/28/2011) Performed for Left hip pain * XR FINGER(S) LEFT(Performed 04/20/2011) Performed for Generalized osteoarthrosis, involving multiple sites * CT ABDOMEN PELVIS WO CONTRAST(Performed 03/23/2011) Performed for Flank pain * URINALYSIS REFLEX MICROSCOPIC REFLEX CULTURE(Performed 03/23/2011) * COMPREHENSIVE METABOLIC PANEL(Performed 03/23/2011) * CBC W AUTO DIFFERENTIAL(Performed 03/23/2011) * XR FINGER(S) LEFT(Performed 01/01/2011) Performed for Pain in limb * URINALYSIS - POINT OF CARE (AMB) [facility](Performed 12/12/2009) * GLUCOSE - POINT OF CARE (AMB) [facility](Performed 12/12/2009) * GLUCOSE - POINT OF CARE (AMB) [facility](Performed 12/12/2009) * ERYTHROCYTE SEDIMENTATION RATE(Performed 12/08/2009) * CD4/CD8 + RATIO PANEL BLOOD(Performed 12/07/2009) * IGE BLOOD(Performed 12/07/2009) * HIV-1 HIV-2 ANTIBODY W REFLX HIV1 WB(Performed 12/07/2009) * C-REACTIVE PROTEIN(Performed 12/07/2009) * IMMUNOGLOBULINS IGG/IGM/IGA PANEL(Performed 12/07/2009) * CBC W AUTO DIFFERENTIAL(Performed 12/07/2009) * COMPREHENSIVE METABOLIC PANEL(Performed 12/07/2009) * CULTURE BLOOD(Performed 12/07/2009) * CULTURE BLOOD FUNGUS(Performed 12/07/2009) * DRUG ABUSE URINE PANEL 10-50(Performed 10/17/2009) * HEPATIC FUNCTION PANEL(Performed 09/16/2009) * EKG 12-LEAD(Performed 08/11/2009) * URINALYSIS W/MICROSCOPIC NO CULTURE(Performed 07/29/2009) * COMPREHENSIVE METABOLIC PANEL(Performed 07/29/2009) * CBC W AUTO DIFFERENTIAL(Performed 07/29/2009) * PATHOLOGY/GENETICS HISTORICAL-ONBASE(Performed 02/14/2009) * LAB HISTORICAL RESULTS-ONBASE(Performed 01/17/2009) * LAB HISTORICAL RESULTS-ONBASE(Performed 01/11/2009) * CULTURE URINE(Performed 12/30/2008) * CBC W/O DIFFERENTIAL(Performed 12/30/2008) * BASIC METABOLIC PANEL (CALCIUM TOTAL)(Performed 12/30/2008) * CULTURE URINE(Performed 12/30/2008) * URINALYSIS - POINT OF CARE (AMB) [facility](Performed 12/29/2008) * HEPATIC FUNCTION PANEL(Performed 10/19/2008) Results * XR CHEST PA AND LATERAL (05/29/2011 4:24 PM CDT) Anatomical Region Laterality Modality Chest Radiographic Keiry ging 05/29/2011 4:55 PM CDT Impressions 05/29/2011 4:55 PM CDT Normal two-view chest x-ray. Narrative 05/29/2011 4:55 PM CDT PA AND LATERAL CHEST INDICATION: Cough x2 weeks FINDINGS: PA and lateral views of the chest show the lungs to be expanded and clear. The cardiac and mediastinal silhouettes and pulmonary vascularity are within normal limits. Procedure Note Vesta Mata MD - 05/29/2011 PA AND LATERAL CHEST INDICATION: Cough x2 weeks FINDINGS: PA and lateral views of the chest show the lungs to be expanded and clear. The cardiac and mediastinal silhouettes and pulmonary vascularity are within normal limits. IMPRESSION Normal two-view chest x-ray. Carlos Magdaleno MD DIAGNOSTIC IMAGING O RDERABLES * XR HIP 2+ VW LEFT (05/28/2011 4:14 PM CDT) Anatomical Region Laterality Modality Pelvis, Lower Extremity Radiogra phic Imaging 05/28/2011 4:42 PM CDT Impressions 05/28/2011 4:52 PM CDT Unremarkable radiographs of the left hip. Narrative 05/28/2011 4:52 PM CDT LEFT HIP FROM 05/28/2011 INDICATION: Left hip pain. No known injury. Radiographs of the left hip were obtained in AP and frog-leg projections. There is no evidence for fracture, dislocation or other bony abnormality. The joint space is preserved. Procedure Note Bharat Salinas MD - 05/28/2011 LEFT HIP FROM 05/28/2011 INDICATION: Left hip pain. No known injury. Radiographs of the left hip were obtained in AP and frog-leg projections. There is no evidence for fracture, dislocation or other bony abnormality. The joint space is preserved. IMPRESSION Unremarkable radiographs of the left hip. Carlos Magdaleno MD DIAGNOSTIC IMAGING O RDERABLES * XR FINGER(S) LEFT (04/20/2011 10:19 AM POULTRY HATCHERY MANAGER) Only the most recent of2 resultswithin the time period is included. Anatomical Region Laterality Modality Upper Extremity, Wrist / Hand Ra diographic Imaging 04/20/2011 12:0 4 PM POULTRY HATCHERY MANAGER Narrative 04/20/2011 2:56 PM POULTRY HATCHERY MANAGER THREE VIEWS LEFT THUMB INDICATION: Left thumb pain. COMPARISON: 01/01/2011 FINDINGS: There has been interval bony fusion at the first metacarpophalangeal joint. There is mild soft tissue swelling about the metacarpophalangeal joint. The interphalangeal joint is unremarkable. There are no acute postsurgical complications. Procedure Note Pam Faulkner MD - 04/20/2011 THREE VIEWS LEFT THUMB INDICATION: Left thumb pain. COMPARISON: 01/01/2011 FINDINGS: There has been interval bony fusion at the first metacarpophalangeal joint. There is mild soft tissue swelling about the metacarpophalangeal joint. The interphalangeal joint is unremarkable. There are no acute postsurgical complications. S. Pancho Guadalupe MD DIAGNOSTIC IMAGING O RDERABLES * CT ABDOMEN AND PELVIS NON IV CONTRAST (03/23/2011 7:40 PM POULTRY HATCHERY MANAGER) Anatomical Region Laterality Modality Abdomen, Pelvis Computed Tomogra phy 03/23/2011 7:50 PM POULTRY HATCHERY MANAGER Narrative 03/23/2011 7:50 PM POULTRY HATCHERY MANAGER Examination: Noncontrast CT abdomen and pelvis, stone protocol. Indication for examination: Right flank pain, kidney stone. An emergency noncontrast CT examination of the abdomen and pelvis is performed 3 mm helical technique with attention to the urinary system. Coronal and sagittal reconstructions were performed. CT abdomen: CT examination of the abdomen shows that the kidneys are normal in size and shape. No obstruction, dilatation or perinephric fluid is identified on either side. No calcified stone is observed on either side. There is no calcified ureteral stone or ureteral dilatation. There is no retroperitoneal hemorrhage or adenopathy. There is no bowel obstruction or perforation. There is no ascites. There is air or gas in the biliary tree presumably from previous sphincterotomy. CT pelvis: CT examination of the pelvis shows no distal ureteral stone or ureteral dilatation. There are calcified phleboliths in the pelvis. No free fluid. Bladder is normal in size. CONCLUSION: No urinary obstruction or calcified stone identified. See above. Procedure Note Darius Le MD - 03/23/2011 Examination: Noncontrast CT abdomen and pelvis, stone protocol. Indication for examination: Right flank pain, kidney stone. An emergency noncontrast CT examination of the abdomen and pelvis is performed 3 mm helical technique with attention to the urinary system. Coronal and sagittal reconstructions were performed. CT abdomen: CT examination of the abdomen shows that the kidneys are normal in size and shape. No obstruction, dilatation or perinephric fluid is identified on either side. No calcified stone is observed on either side. There is no calcified ureteral stone or ureteral dilatation. There is no retroperitoneal hemorrhage or adenopathy. There is no bowel obstruction or perforation. There is no ascites. There is air or gas in the biliary tree presumably from previous sphincterotomy. CT pelvis: CT examination of the pelvis shows no distal ureteral stone or ureteral dilatation. There are calcified phleboliths in the pelvis. No free fluid. Bladder is normal in size. CONCLUSION: No urinary obstruction or calcified stone identified. See above. Bernadette Dill MD CT ORDERABLES * (ABNORMAL) URINALYSIS ROUTINE W/REFLEX TO CULTURE (03/23/2011 4:46 PM POULTRY HATCHERY MANAGER) Color UA YELLOW [facility] Character UA CLOUDY [facility] Specific [place] UA 1.050(H) 1.005 - 1.0300 [facility] pH UA 5.5 4.6 - 8.0 pH Units [facility] Leukocyte UA NEGATIVE Negative /ul [facility] Nitrite UA NEGATIVE Negative [facility] Protein UA NEGATIVE Negative mg/dl [facility] Glucose UA NEGATIVE Normal mg/dl [facility] Ketone UA NEGATIVE Negative mg/dl [facility] Urobilinogen UA 0.2 Normal Maru Units [facility] Bilirubin UA Negative Negative mg/dl [facility] Blood UA NEGATIVE Negative /ul [facility] WBC UA 5-10(H) <5 /HPF [facility] RBC UA 2-5 <5 /HPF [facility] Epithelial Cell UA 10-20(H) <5 /HPF [facility] Casts UA 5-10 hyaline(H) <2 /LPF [facility] Bacteria UA FEW [facility] Urine Culture No culture to be done per protocol. [facility] Urine specimen (specimen) URINE SPECIMEN OBTAINED BY CLEAN CATCH PROCEDURE / Unknown 03/23/2011 4:46 PM POULTRY HATCHERY MANAGER 03/23/2011 4:46 PM POULTRY HATCHERY MANAGER Jonathan Santos DO LAB - URINALYSIS ORD ERABLES Performing Organization Address City/[facility]/ZIP Co de Phone Number [facility] [address] [place] [address] * (ABNORMAL) CBC W AUTO DIFFERENTIAL (03/23/2011 4:37 PM POULTRY HATCHERY MANAGER) Only the most recent of3 resultswithin the time period is included. WBC 9.2 4.5 - 11.0 1000/mm3 [facility] RBC 4.08(L) 4.2 - 5.4 10X6 [facility] Hemoglobin 11.1(L) 12.0 - 16.0 gm/dl [facility] Hematocrit 36.5 36.0 - 48.0 % [facility] MCV 89.5 80.0 - 99.0 fl [facility] MCH 27.2 25.0 - 31.0 pg [facility] MCHC 30.4(L) 32.0 - 36.0 gm/dl [facility] RDW 18.7(H) 11.5 - 14.5 % [facility] Platelet Count 280 130.0 - 400.0 1000/mm3 [facility] Granulocytes % 58.0 40.0 - 70.0 % [facility] Lymphocytes % 34.3 22.0 - 40.0 % [facility] Monocytes % 5.7 2.0 - 10.0 % [facility] Eosinophils % 1.2 0.0 - 6.0 % [facility] Basophils % 0.8 0.0 - 3.0 % [facility] Granulocytes Absolute 5.36 1.8 - 7.7 [facility] Lymphocytes Absolute 3.17 1.0 - 5.4 [facility] Monocytes Absolute 0.53 0.1 - 1.1 [facility] Eosinophils Absolute 0.11 0.0 - 0.7 [facility] Basophils Absolute 0.07 0.0 - 0.2 [facility] Comment Manual Diff Not Indicated [facility] Blood specimen (specimen) BLOOD SPECIMEN / Unknown 03/23/2011 4:37 PM POULTRY HATCHERY MANAGER 03/23/2011 4:44 PM POULTRY HATCHERY MANAGER Jonathan Santos DO LAB - HEMATOLOGY ORD ERABLES [facility] [address] [place] [address] * (ABNORMAL) COMPREHENSIVE METABOLIC PANEL (03/23/2011 4:37 PM POULTRY HATCHERY MANAGER) Only the most recent of3 resultswithin the time period is included. BUN 11 7.0 - 21.0 mg/dL [facility] Sodium 143 136 - 145 mmol/L [facility] Potassium 3.5 3.5 - 5.1 mmol/L [facility] Chloride 108(H) 98.0 - 107.0 mmol/L [facility] Glucose 88 74 - 106 mg/dL [facility] Creatinine 0.59 0.5 - 1.3 mg/dL [facility] AST 10 5 - 40 U/L [facility] Alkaline Phosphatase 75 38 - 126 U/L [facility] Calcium 8.3(L) 8.5 - 10.1 mg/dL [facility] Bilirubin Total 0.2 0.2 - 1.0 mg/dL [facility] Albumin 3.5 3.4 - 5.0 gm/dL [facility] Protein Total 6.8 6.4 - 8.2 gm/dL [facility] CO2 26 22.0 - 30.0 mmol/L [facility] ALT 10(L) 12 - 78 U/L [facility] eGFR by MDRD 105 mL/min/1.7 3m2 [facility] Anion Gap 9.0 [facility] Blood specimen (specimen) BLOOD SPECIMEN / Unknown 03/23/2011 4:37 PM POULTRY HATCHERY MANAGER 03/23/2011 4:44 PM POULTRY HATCHERY MANAGER Jonathan Santos DO LAB - CHEMISTRY DARLIN FORBES [facility] [address] [place] [address] * URINALYSIS - POINT OF CARE (AMB) [facility] (12/12/2009 9:08 AM CDT) Only the most recent of2 resultswithin the time period is included. Pathologist [facility] Glucose UA neg- [facility] Bilirubin UA POCT negFORMERLY [facility], [facility] Ketones UA POCT 40 mg/dL [facility] Specific [place] UA 1.020 [facility] Blood Urine POCT negFORMERLY [facility], [facility] pH UA 5.0 [facility] Protein UA trace [facility] Urobilinogen UA 4.0EU/dL [facility] Nitrite UA pos+ [facility] WBC UA trace [facility] Urine specimen (specimen) 12/12/2009 9:08 AM CDT Osmel Uribe MD LAB - POINT OF CARE ORDERABLES [facility] * GLUCOSE - POINT OF CARE (AMB) [facility] (12/12/2009 9:07 AM CDT) Only the most recent of2 resultswithin the time period is included. Osmel Uribe MD LAB - POINT OF CARE ORDERABLES [facility] RADIOLOG[facility] * ERYTHROCYTE SEDIMENTATION RATE (12/08/2009 8:00 AM CDT) Erythrocyte Sedimentation Rate 1 < OR = 30 mm/h [facility] ([facility]) Comment: NO COLLECTION DATE RECEIVED. WE HAVE USED THE DATE THE SPECIMEN WAS RECEIVED BY THIS LABORATORY THE COLLECTION DATE. IF THIS IS INCORRECT, PLEASE CONTACT CLIENT SERVICES. PHONE NUMBER: [phone] Test Performed at: [email or web address] [address] [place] [address] ROJAS MENDOSA DO,MPH 12/08/2009 8:00 AM CDT 12/08/2009 8:39 AM CDT [facility] Provider LAB - HEMATOLOGY ORDERABLES [facility] ([facility]) * HIV-1 HIV-2 ANTIBODY W REFLX HIV1 WB (12/07/2009 2:51 PM CDT) HIV 1/2 EIA Antibody NON-REACTI VE NON-REACT [facility] ([facility]) Comment: A Nonreactive HIV-1/2 antibody result does not exclude HIV infection since the time frame for seroconversion is variable. If acute HIV infection is suspected, antibody retesting and nucleic acid amplification (HIV DNA/RNA) testing is recommended. Test Performed at: [email or web address] [place] [address] [place] [address] ROJAS MENDOSA DO,MPH 12/07/2009 2:51 PM CDT 12/08/2009 9:55 AM CDT Historical Provider LAB - CHEMISTRY O RDERABLES Performing Organization Address [facility] de Phone Number [facility] ([facility]) * C-REACTIVE PROTEIN (12/07/2009 2:51 PM CDT) Pathologist [facility] C-Reactive Protein 0.21 <0.80 mg/dL [facility] ([facility]) Comment: Test Performed at: [email or web address] [address] [place] [address] ROJAS MENDOSA DO 12/07/2009 2:51 PM CDT 12/08/2009 9:55 AM CDT Historical Provider LAB - CHEMISTRY O AIDAN Performing Organization Address [facility] Phone Number [facility] ([facility]) * CULTURE BLOOD (12/07/2009 2:51 PM CDT) [facility] Blood Culture Routine SEE CHARLI [facility] ([facility]) Comment: CULTURE, BLOOD MICRO NUMBER: [id number] TEST STATUS: FINAL SPECIMEN SOURCE: BLOOD SPECIMEN QUALITY: SUB-OPTIMAL RESULT: NO GROWTH AFTER 5 DAYS TRANSPORT MEDIA: AEROBIC AND ANAEROBIC BOTTLE RECEIVED. VISUAL INSPECTION OF BLOOD CULTURE BOTTLES INDICATE AN INADEQUATE VOLUME OF BLOOD MAY HAVE BEEN COLLECTED FOR THE DETECTION OF SEPSIS. Test Performed at: [email or web address] [address] [place] [address] ROJAS MENDOSA DO 12/07/2009 2:51 PM CDT 12/08/2009 9:55 AM CDT Historical Provider LAB - MICROBIOLOG Y ORDERABLES Performing Organization Address [facility] de Phone Number [facility] ([facility]) * CULTURE BLOOD FUNGUS (12/07/2009 2:51 PM CDT) Pathologist [facility] Fungal Preliminary 1 SEE NOTE [facility] ([facility]) Comment: No growth at 1 week. Test Performed at: [email or web address] [address] [place] [address] ONEL SNELL MD PHD Fungal Preliminary 2 SEE NOTE [facility] ([facility]) Comment:No growth at 2 weeks . Fungus Culture Blood SEE NOTE [facility] ([facility]) Comment: RESULT: No growth at 4 weeks. 12/07/2009 2:51 PM CDT 12/08/2009 9:55 AM CDT Historical Provider LAB - MICROBIOLOG Y ORDERABLES Performing Organization Address [facility] Co de Phone Number [facility] ([facility]) * (ABNORMAL) CD4/CD8 + RATIO PANEL BLOOD (12/07/2009 2:51 PM CDT) Pathologist [facility] CD4 % 29(L) 30 - 61 % [facility] ([facility]) CD4 Absolute 1315 490 - 1740 cells/uL [facility] ([facility]) CD8 % 39 12 - 42 % [facility] ([facility]) CD8 ABS 1786(H) 180 - 1170 cells/uL [facility] ([facility]) CD4/CD8 Ratio 0.74(L) 0.86 - 5.00 [facility] ([facility]) Lymphocyte Absolute 4585(H) 850 - 3900 cells/uL [facility] ([facility]) Comment SEE NOTE [facility] ([facility]) Comment: Verified by repeat analysis. Test Performed at: [email or web address] [address] [place] [address] ROJAS MENDOSA DO,MPH 12/07/2009 2:51 PM CDT 12/08/2009 9:55 AM CDT Historical Provider LAB - HEMATOLOGY ORDERABLES Performing Organization Address [facility] Co de Phone Number [facility] ([facility]) * IMMUNOGLOBULINS IGG/IGM/IGA PANEL (12/07/2009 2:51 PM CDT) [facility] IgA 187 81 - 463 mg/dL [facility] ([facility]) IgG 741 694 - 1618 mg/dL [facility] ([facility]) IgM 151 48 - 271 mg/dL [facility] ([facility]) Comment: Test Performed at: [email or web address] [place] [address] [facility] [place] [address] ROJAS MENDOSA DO,MPH 12/07/2009 2:51 PM CDT 12/08/2009 9:55 AM CDT Historical Provider LAB - CHEMISTRY O AIDAN Performing Organization Address [facility]/ZIP Co de Phone Number [facility] ([facility]) * (ABNORMAL) IGE BLOOD (12/07/2009 2:51 PM CDT) IgE Total 124(H) <CK=717 kU/L [facility] ([facility]) Comment: Test Performed at: [facility] [address] [facility] [place] [address] ROJAS MENDOSA DO,MPH 12/07/2009 2:51 PM CDT 12/08/2009 9:55 AM CDT Historical Provider LAB - CHEMISTRY O AIDAN Performing Organization Address [facility] de Phone Number [facility] ([facility]) * (ABNORMAL) DRUG ABUSE URINE PANEL 10-50 (10/17/2009 2:13 PM CDT) Pathologist [facility] [employer] of Custody NO [facility] ([facility]) Comment: * These results are for medical treatment only. * * Analysis was performed as non-forensic testing. * Amphetamines Screen (1000 ng/mL) NEGATIVE [facility] ([facility]) Barbiturate NEGATIVE [facility] ([facility]) Benzodiazepine NEGATIVE [facility] ([facility]) Cocaine Metabolite NEGATIVE [facility] ([facility]) Marijuana Metabolities (50ng/ml Screen) NEGATIVE [facility] ([facility]) Methadone NEGATIVE [facility]) Methaqualone NEGATIVE [facility]) Opiates NEGATIVE CONFIRMED [facility] ([facility]) Phencyclidine NEGATIVE [facility]) Propoxyphene POSITIVE(A) [facility] ([facility]) See Note SEE NOTE [facility] ([facility]) Comment: THE URINE SPECIMEN WAS TESTED AT THE CUTOFFS BELOW. PLEASE NOTE: ALL UNITS OF MEASURE ARE NG/ML UNLESS SPECIFICALLY NOTED OTHERWISE. DRUG CLASS INITIAL CONFIRM CONFIRM TEST TEST METHOD CUTOFF CUTOFF AMPHETAMINES 1000 AMPHETAMINE 500 GC/MS METHAMPHETAMINE 500 GC/MS BARBITURATES 300 AMOBARBITAL 200 GC/MS BUTABARBITAL 200 GC/MS BUTALBITAL 200 GC/MS PENTOBARBITAL 200 GC/MS PHENOBARBITAL 200 GC/MS SECOBARBITAL 200 GC/MS BENZODIAZEPINES 300 200 GC/MS COCAINE METABOLITES 300 150 GC/MS MARIJUANA METABOLITES 50 15 GC/MS METHADONE 300 200 GC/MS METHAQUALONE 300 200 GC/MS OPIATES 300 MORPHINE 300 GC/MS CODEINE 300 GC/MS HYDROCODONE 300 GC/MS HYDROMORPHONE 300 GC/MS PHENCYCLIDINE 25 25 GC/MS PROPOXYPHENE 300 200 GC/MS REPORT COMMENT: PREFERRED LAB:->[facility] Test Performed at: [email or web address] [place] [address] ROJAS MENDOSA DO,MPH 10/17/2009 2:13 PM CDT 10/17/2009 2:21 PM CDT [place] Fay Uribe MD LAB - URINE CHEMISTR Y ORDERABLES [facility] ([facility]) * (ABNORMAL) HEPATIC FUNCTION PANEL (09/16/2009 2:50 PM CDT) Only the most recent of2 resultswithin the time period is included. Total Protein 6.2 6.2 - 8.3 g/dL [facility] ([facility]) Albumin 4.0 3.6 - 5.1 g/dL [facility] ([facility]) Globulin 2.2 2.2 - 3.9 g/dL (calc) [facility] ([facility]) Albumin/Globulin Ratio 1.8 1.0 - 2.1 (calc) [facility] ([facility]) Bilirubin Total 0.3 0.2 - 1.2 mg/dL [facility] ([facility]) Bilirubin Direct 0.1 < OR = 0.2 mg/dL [facility] ([facility]) Bilirubin Indirect 0.2 0.2 - 1.2 mg/dL (calc) [facility] ([facility]) Alkaline Phosphatase 69 33 - 130 U/L [facility] ([facility]) AST 44(H) 10 - 35 U/L [facility] ([facility]) ALT 52(H) 6 - 40 U/L [facility] ([facility]) Comment: REPORT COMMENT: PREFERRED LAB:->[facility] Test Performed at: [place] [address] ROJAS MENDOSA DO,MPH 09/16/2009 2:50 PM CDT 09/16/2009 2:51 PM CDT Kendell Biggs MD LAB - CHEMISTRY DARLIN FORBES [facility] ([facility]) * EKG 12-LEAD (08/11/2009 4:05 PM CDT) Osmel Uribe MD ECG ORDERABLES Performing Organization Address City/[facility]/ZIP Co de Phone Number [facility] RADIOLOGY * (ABNORMAL) URINALYSIS W/MICROSCOPIC NO CULTURE (07/29/2009 4:28 PM CDT) Color UA DARK YELLOW YELLOW [facility]) Appearance CLOUDY(A) CLEAR [facility]) Specific [place] Urine 1.024 1.001 - 1.035 [facility]) pH Urine 5.5 5.0 - 8.0 [facility]) Glucose UA NEGATIVE NEGATIVE [facility]) Bilirubin UA NEGATIVE NEGATIVE [facility]) Ketones TRACE(A) NEGATIVE [facility]) Blood UA NEGATIVE NEGATIVE [facility]) Protein UA 1+(A) NEGATIVE [facility]) Nitrite UA NEGATIVE NEGATIVE [facility]) Leukocyte Esterase NEGATIVE NEGATIVE [facility]) WBC Urine 6-10(A) < OR = 5 /HPF [facility]) RBC Urine 0-3 < OR = 3 /HPF [facility]) Squamous Epithelial Cells UA 10-20(A) < OR = 5 /HPF [facility]) Bacteria UA MODERATE(A) NONE SEEN /HPF [facility]) Hyaline Casts UA 1-3(A) NONE SEEN /LPF [facility]) Comment MANY MUCOUS THREADS [facility] ([facility]) Comment: REPORT COMMENT: PREFERRED LAB:->[facility]; PREFERRED LAB:->[facility]; PREFERRED LAB: Test Performed at: [email or web address] [place] [address] [place] [address] ROJAS MENDOSA DO,MPH 07/29/2009 4:28 PM CDT 07/29/2009 4:29 PM CDT Osmel Uribe MD LAB - URINALYSIS ORD ERABLES Performing Organization Address [facility] de Phone Number [facility] ([facility]) * PATHOLOGY/GENETICS HISTORICAL-ONBASE (02/14/2009) 02/14/2009 Osmel Uribe MD LAB - CHEMISTRY DARLIN FORBES Performing Organization Address [facility] Co de Phone Number [facility] * LAB HISTORICAL RESULTS-ONBASE (01/17/2009) Only the most recent of2 resultswithin the time period is included. 01/17/2009 Historical Provider LAB - CHEMISTRY O RDERABRETT Performing Organization Address [facility] de Phone Number [facility] * CULTURE URINE (12/30/2008 9:00 PM POULTRY HATCHERY MANAGER) Only the most recent of2 resultswithin the time period is included. Urine Culture Routine SEE NOTE [facility] ([facility]) Comment: CULTURE, URINE, ROUTINE MICRO NUMBER: [id number] TEST STATUS: FINAL SPECIMEN SOURCE: URINE SPECIMEN COMMENTS: RESULT: NO GROWTH NO COLLECTION DATE RECEIVED. WE HAVE USED THE DATE THE SPECIMEN WAS RECEIVED BY THIS LABORATORY THE COLLECTION DATE. IF THIS IS INCORRECT, PLEASE CONTACT CLIENT SERVICES. PHONE NUMBER: [phone] Test Performed at: [email or web address] [address] [address] MAYE XAVIER MD Urine specimen (specimen) URINE SPECIMEN OBTAINED BY CLEAN CATCH PROCEDURE / Unknown 12/30/2008 9:00 PM POULTRY HATCHERY MANAGER 12/30/2008 5:10 AM POULTRY HATCHERY MANAGER Narrative [facility] ([facility]) - 12/30/2008 9:00 PM POULTRY HATCHERY MANAGER Preferred Lab:->[facility] Osmel Uribe MD LAB - MICROBIOLOGY O RDERABLES Performing Organization Address [facility] de Phone Number [facility] ([facility]) * (ABNORMAL) CBC W/O DIFFERENTIAL (12/30/2008 8:25 AM POULTRY HATCHERY MANAGER) WBC 8.5 3.8 - 10.8 Thousand/u L [facility] ([facility]) RBC 4.22 3.80 - 5.10 Million/uL [facility] ([facility]) Hemoglobin 14.2 11.7 - 15.5 g/dL [facility] ([facility]) Hematocrit 43.4 35.0 - 45.0 % [facility] ([facility]) MCV 102.8(H) 80.0 - 100.0 fL [facility] ([facility]) MCH 33.5(H) 27.0 - 33.0 pg [facility] ([facility]) MCHC 32.6 32.0 - 36.0 g/dL [facility] ([facility]) RDW 15.1(H) 11.0 - 15.0 % [facility] ([facility]) Platelets 269 140 - 400 Thousand/u L [facility] ([facility]) Comment: REPORT COMMENT: PREFERRED LAB:->[facility]; PREFERRED LAB:->[facility] Test Performed at: [email or web address] [address] [place] [address] MAYE XAVIER MD Venous blood specimen (specimen) 12/30/2008 8:25 AM POULTRY HATCHERY MANAGER 12/30/2008 10:31 AM POULTRY HATCHERY MANAGER Narrative [facility] ([facility]) - 12/30/2008 11:00 AM POULTRY HATCHERY MANAGER Preferred Lab:->[facility] [place] Fay Uribe MD LAB - HEMATOLOGY ORD ERABLES [facility] ([facility]) * BASIC METABOLIC PANEL (CALCIUM TOTAL) (12/30/2008 8:25 AM POULTRY HATCHERY MANAGER) [facility] Glucose POCT 93 65 - 99 mg/dL [facility] ([facility]) Comment:FASTING REFERENCE IN TERVAL BUN 8 7 - 25 mg/dL [facility] ([facility]) Creatinine 0.77 0.60 - 1.10 mg/dL [facility] ([facility]) BUN/Creatinine Ratio NOT APPLICABLE 6 - 22 (calc) [facility] ([facility]) Comment: BUN/CREATININE RATIO IS NOT REPORTED WHEN THE BUN AND CREATININE VALUES ARE WITHIN NORMAL LIMITS. Sodium 141 135 - 146 mmol/L [facility] ([facility]) Potassium 4.3 3.5 - 5.3 mmol/L [facility] ([facility]) Chloride 105 98 - 110 mmol/L [facility] ([facility]) CO2 28 21 - 33 mmol/L [facility] ([facility]) Calcium 9.0 8.6 - 10.2 mg/dL [facility] ([facility]) Comment: Test Performed at: [email or web address] [address] [place] [address] MAYE XAVIER MD Venous blood specimen (specimen) (Arm, Left) 12/30/2008 8:25 AM POULTRY HATCHERY MANAGER 12/30/2008 10:31 AM POULTRY HATCHERY MANAGER Narrative [facility] ([facility]) - 12/30/2008 11:00 AM POULTRY HATCHERY MANAGER Preferred Lab:->[facility] [place] Fay Uribe MD LAB - CHEMISTRY DARLIN FORBES [facility] ([facility]) Care Teams Retail Director Relationship Specialty Start Date End Date Uzair Nelson MD [address] [place] [address] PCP - General Internal Medicine 01/31/16
--- OUTSIDE RECORDS SUMMARY | 2024-04-10 13:54 | XMS_ITS | Encounter Summary ---
Author Organization [facility] Address [address] [place] [address] Care Team Providers Care Technician Trainee Name Role Phone Bharat Rushing MD Primary Care Provider [phone] Encounter Details Date Type Department Care Team (Late st Contact Info) Description 10/13/2008 Outpatient Historical [facility] [place] [address] [address] Social History Tobacco Use Types Packs/Day Years Used Date Smoking Tobacco: Never Assessed Comments Unknown Sex and Gender Information Value Date Recorded Sex Assigned at Not on file Legal Sex Female 2:49 AM FILM PAINTER Gender Identity Not on file Sexual Orientation Not on file documented as of this encounter Plan of Treatment Upcoming Encounters Date Type Department Care Team (Late st Contact Info) Description 07/03/2024 10:30 AM CDT Office Visit [facility] - [address] [facility] [address] [address] [facility] [address] [place] [address] [place] [address] [facility] [address] [place] [address] documented as of this encounter Visit Diagnoses Not on filedocumented in this encounter Care Teams Technician Trainee Relationship Specialty Start Date End Date Bharat Rushing MD PCP - General Family Practice 05/24/16 documented as of this encounter
--- OUTSIDE RECORDS SUMMARY | 2024-04-10 13:54 | XMS_ITS | Encounter Summary ---
Author Organization [facility] Address [address] [place] [address] Care Team Providers Care Diorama Model Maker Name Role Phone Bharat Rushing MD Primary Care Provider [phone] Encounter Details Date Type Department Care Team (Latest Contact Info) Description 06/01/2000 Outpatient Historical HIS [facility] END[place], [place] [address] [place] [address] Palpitations (Primary Dx) Social History Tobacco Use Types Packs/Day Years Used Date Smoking Tobacco: Never Assessed Comments Unknown Sex and Gender Information Value Date Recorded Sex Assigned at Not on file Legal Sex Female 2:49 AM PRIVACY OFFICER Gender Identity Not on file Sexual Orientation Not on file documented as of this encounter Plan of Treatment Upcoming Encounters Date Type Department Care Team (Late st Contact Info) Description 07/03/2024 10:30 AM CDT Office Visit [facility]STR[facility]OLOGY - [address] [facility] [address] [address] [facility] 102 [place] [address] [place] [address] [facility] [address] [place] [address] documented as of this encounter Visit Diagnoses Diagnosis Palpitations- Primary documented in this encounter Care Teams Diorama Model Maker Relationship Specialty Start Date End Date Bharat Rushing MD PCP - General Family Practice 05/24/16 documented as of this encounter
--- OUTSIDE RECORDS SUMMARY | 2024-04-10 13:54 | XMS_ITS | Encounter Summary ---
Author Organization [facility] Facility Care Team Providers Care Analysis Or Research Safety Inspector Name Role Phone Bharat Rushing MD Primary Care Provider [phone] Aakash Cantu MD Unavailable [phone] Bhavya Zimmerman Primary Care Provider + Tom Alfred MD Primary Care Provider [phone] Encounter Details Date Type Department Care Team (Latest Contact Info) Description 10/22/2016 Orders Only [facility] Provider, MD Oli [address] [place] [address] Social History Tobacco Use Types Packs/Day Years Used Date Smoking Tobacco: Smoker, Current Status Unknown Alcohol Use Standard Drinks/Week Comments No 0 (1 standard drink = 0.6 oz pur e alcohol) Comments Unknown Sex and Gender Information Value Date Recorded Sex Assigned at Not on file Legal Sex Female 2:03 AM TECHNOLOGY ANALYST Gender Identity Female 02/26/2020 12:09 PM TECHNOLOGY ANALYST Sexual Orientation Straight 02/26/2020 12 :09 PM TECHNOLOGY ANALYST documented as of this encounter Plan of Treatment Not on file documented as of this encounter Procedures Procedure Name Priority Date/Time Associated Diagnosis Comments PROCEDURE - RESULT 10/23/2016 12 :00 AM CDT documented in this encounter Results * PROCEDURE - RESULT (10/23/2016 12:00 AM CDT) Narrative 10/23/2016 12:00 [...] COVID: Suspected 02/24/2020 02/24/2020 02/26/2020 10:36 PM TECHNOLOGY ANALYST Respiratory Infection (ABIGAIL), contact + droplet Comment:Automatically added due to negative COVID-19 result. 02/26/2020 02/26/2020 03/11/2020 3:0 7 AM TECHNOLOGY ANALYST COVID: Suspected 05/13/2020 05/13/2020 05/14/2020 12:15 PM CDT COVID: Suspected 03/06/2021 03/06/2021 03/07/2021 6:03 AM TECHNOLOGY ANALYST COVID: Suspected 05/23/2021 05/23/2021 05/24/2021 3:05 [...] documented as of this encounter Care Teams Analysis Or Research Safety Inspector Relationship Specialty Start Date End Date Bharat Rushing MD PCP - General Family Medicine 05/26/18 11/19/21 Bhavya Zimmerman PA PCP - General Family Medicine 11/20/21 11/14/22 Tom Alfred MD PCP - General Family Medicine 11/15/22 Aakash Cantu MD Referring Physician Gastroenterology 01/14/18 documented as of this encounter
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
--- OUTSIDE RECORDS SUMMARY | 2024-04-10 13:54 | XMS_ITS | Encounter Summary ---
Author Organization [facility] Address 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 GASTROENTEROLOGY - [address] [facility] [address] [id number] [facility] 102 [place] [address] [place] [address] [facility] 102 [place] [address] documented as of this encounter Procedures Procedure Name Priority Date/Time Associated Diagnosis Comments US VENOUS DOPPLER LEG LEFT Routine 09/21/2008 8:02 PM CDT documented in this encounter Results * US VENOUS DOPPLER LEG LEFT (09/21/2008 8:02 PM CDT) Anatomical Region Laterality Modality Lower Extremity Other Narrative 09/21/2008 8:02 PM CDT [facility] [address] [place] [address] [email or web address] Peripheral Venous Study Patient: Shae Green Study ID: Venous Gender: F : 1955 Age: 53 years Race: 1 Room: Bed: Height: Study Date: September 21, 2008 Patient status: Outpatient Weight: Access. #: [id number] POC: Digital Asset Manager: Claire Ordering: Ana Maria Attending MD: Ana Maria Admitting MD: Ana Maria SUMMARY: There was no evidence of deep vein thrombosis of the left lower extremity veins. COMPARISONS No previous study is available for comparison. HISTORY AND INDICATIONS: INDICATIONS: Painful knot at left groin for 1 month. HISTORY: Painful knot at left groin for 1 month. PROCEDURE INFORMATION: PROCEDURE PERFORMED: A complete duplex and high resolution Doppler study with imaging and spectral analysis was performed on the left lower extremity venous system.A limited duplex study with imaging and spectral analysis was performed on the left leg venous. PROCEDURE DETAIL: This was an outpatient procedure. LEFT DUPLEX DATA Common femoral Patency/occlusion: Patent Flow pattern: Phasic Competence test: Competent B-mode compressibility: Normal Augmentation: Present Comments: No evidence of echogenic material Superficial femoral Patency/occlusion: Patent Flow pattern: Phasic Competence test: Competent B-mode compressibility: Normal Augmentation: Present Comments: no evidence of echogenic material Popliteal Patency/occlusion: Patent Flow pattern: Phasic Competence test: Competent B-mode compressibility: Normal Augmentation: Present Comments: no evidence of echogenic material Peroneal Patency/occlusion: Patent Flow pattern: -- Competence test: -- B-mode compressibility: Normal Augmentation: -- Comments: no evidence of echogenic material Posterior tibial Patency/occlusion: Patent Flow pattern: -- Competence test: -- B-mode compressibility: Normal Augmentation: -- Comments: no evidence of echogenic material There was no evidence of deep vein thrombosis of the left lower extremity veins. Prepared and Electronically Authenticated Gilberto Valverde MD Confirmed September 21, 2008 19:16:17 Procedure Note Provider, Historical - 09/21/2008 [facility] [address] [place] [address] [email or web address] Peripheral Venous Study Patient: Shae Green Study ID: Venous Gender: Bobby : 1955 Age: 53 years Race: 1 Room: Bed: Height: Study Date: September 21, 2008 Patient status: Outpatient Weight: Access. #: [id number] POC: Digital Asset Manager: Claire Ordering: Ana Maria Attending MD: Ana Maria Admitting MD: Ana Maria SUMMARY: There was no evidence of deep vein thrombosis of the left lower extremityveins. COMPARISONS No previous study is available for comparison. HISTORY AND INDICATIONS: INDICATIONS: Painful knot at left groin for 1 month. HISTORY: Painful knot at left groin for 1 month. PROCEDURE INFORMATION: PROCEDURE PERFORMED: A complete duplex and high resolution Doppler study with imaging andspectral analysis was performed on the left lower extremity venous system.Alimited duplex study with imaging and spectral analysis was performed on the leftleg venous. PROCEDURE DETAIL: This was an outpatient procedure. LEFT DUPLEX DATA Common femoral Patency/occlusion: Patent Flow pattern: Phasic Competence test: Competent B-mode compressibility: Normal Augmentation: Present Comments: No evidence of echogenic material Superficial femoral Patency/occlusion: Patent Flow pattern: Phasic Competence test: Competent B-mode compressibility: Normal Augmentation: Present Comments: no evidence of echogenic material Popliteal Patency/occlusion: Patent Flow pattern: Phasic Competence test: Competent B-mode compressibility: Normal Augmentation: Present Comments: no evidence of echogenic material Peroneal Patency/occlusion: Patent Flow pattern: -- Competence test: -- B-mode compressibility: Normal Augmentation: -- Comments: no evidence of echogenic material Posterior tibial Patency/occlusion: Patent Flow pattern: -- Competence test: -- B-mode compressibility: Normal Augmentation: -- Comments: no evidence of echogenic material There was no evidence of deep vein thrombosis of the left lowerextremity veins. Prepared and Electronically Authenticated Gilberto Valverde MD Confirmed September 21, 2008 19:16:17 Rinku Chin MD ORDERABLES Final Result documented in this encounter Visit Diagnoses Diagnosis Other acute embolism veins Acute venous embolism and thrombosis of other specified veins documented in this encounter Care Teams Histologist Relationship Specialty Start Date End Date Bharat Rushing MD PCP - General Family Practice 05/24/16 documented as of this encounter
--- OUTSIDE RECORDS SUMMARY | 2024-04-10 13:54 | XMS_ITS | Encounter Summary ---
Author Organization [facility] Address [address] [place] [address] Care Team Providers Care Freight Tallier Name Role Phone Bharat Rushing MD Primary Care Provider [phone] Encounter Details Date Type Department Care Team (Latest Contact Info) Description 11/21/2007 Outpatient Historical HIS [facility] Jj, Toy Ha MD [address] [facility] [place] [address] Lump or Mass in Breast Social History Tobacco Use Types Packs/Day Years Used Date Smoking Tobacco: Never Assessed Comments Unknown Sex and Gender Information Value Date Recorded Sex Assigned at Not on file Legal Sex Female 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 [address] [address] [facility] 102 [place] [address] [place] [address] [facility] [address] [place] [address] documented as of this encounter Procedures Procedure Name Priority Date/Time Associated Diagnosis Comments US BREAST BILAT COMPLETE Routine 11/21/2007 1:34 PM CDT MAMMO DIAGNOSTIC BILATERAL W OR WO CAD Routine 11/21/2007 1:34 PM CDT MRI BREAST W CONTRAST BILAT Timed Study 11/21/2007 11:56 AM CDT POC CREATININE Routine 11/21/2007 11:27 AM CDT documented in this encounter Results * US BREAST BILATERAL (11/21/2007 1:34 PM CDT) Anatomical Region Laterality Modality Breast Bilateral Other 11/21/2007 1:34 PM CDT Narrative 11/24/2007 7:51 AM CDT [facility] [address] [place], [place] [address] Admit Date: 11/21/2007 JOSEPHINE SHAE R Sex: F Admit Prov: TOY JJ Date: 1955 Primary Care Prov: YOUSFI DOMINGUEZ CMRN: [id number] Room: [facility] SSN: [address] [place] [address] IMAGING SERVICES Ordering Prov: NICOTOY Vick Accession Number: [id number] Interpretation BILATERAL FULL FIELD DIGITAL DIAGNOSTIC MAMMOGRAMS WITH COMPUTER AIDED DIAGNOSIS AND BILATERAL BREAST ULTRASOUND. 11/21/2007 History: Patient has extremely strong family history of breast cancer. This includes a mother diagnosed with breast and uterine cancer, 2 sisters diagnosed with breast cancer in the mid 30s, maternal grandmother diagnosed with breast cancer, and maternal aunt diagnosed with breast cancer in her early 30s. Technique: Bilateral full field digital diagnostic mammogram was performed. CAD was utilized. No prior studies are available for comparison at this institution. Breast composition: Heterogeneously dense which lowers sensitivity of mammography. Findings: No dominant masses, areas of asymmetry or suspicious clustered microcalcifications are identified within either breast. The CAD system detects no other significant abnormalities. Bilateral breast ultrasound was performed. This demonstrates only dense breast tissue. No solid or cystic lesions are identified. Overall assessment: BIRADS category 1 - Negative Recommendations: Annual mammography is recommended. Dictated by: SANIYA WILSON Electronically signed by: SANIYA WILSON 11/24/2007 07:50 Transcribed: 11/21/2007 16:43 AMK Procedure Note Saniya Wilson - 11/24/2007 [facility] [address] [address] Admit Date: 11/21/2007 JOSEPHINESHAE Sex: F Admit Prov: TOY JJ Date: 1955 Primary Care Prov: YOUSIF DOMINGUEZ CMRN: [id number] Room: [facility] SSN: [address] [place] [address] IMAGING SERVICES Ordering Prov: TOY JJ Interpretation BILATERAL FULL FIELD DIGITAL DIAGNOSTIC MAMMOGRAMS WITH COMPUTERAIDED DIAGNOSIS AND BILATERAL BREAST ULTRASOUND. 11/21/2007 History: Patient has extremely strong family history of breastcancer. This includes a mother diagnosed with breast and uterine cancer, 2sisters diagnosed with breast cancer in the mid 30s, maternal grandmotherdiagnosed with breast cancer, and maternal aunt diagnosed with breast cancer inher early 30s. Technique: Bilateral full field digital diagnostic mammogram wasperformed. CAD was utilized. [facility] Breast composition: Heterogeneously dense which lowers sensitivityof mammography. Findings: No dominant masses, areas of asymmetry or suspiciousclustered microcalcifications are identified within either breast. The CADsystem detects no other significant abnormalities. Bilateral breast ultrasound was performed. This demonstrates onlydense breast tissue. No solid or cystic lesions are identified. Overall assessment: BIRADS category 1 - Negative Recommendations: Annual mammography is recommended. Dictated by: SANIYA WILSON Electronically signed by: SANIYA WILSON 11/24/2007 07:50 Transcribed: 11/21/2007 16:43 AMK Toy Jj MD ORDERABLES Final Result * MAMMO DIGITAL DIAG BILAT (11/21/2007 1:34 PM CDT) Anatomical Region Laterality Modality Breast Bilateral Other 11/21/2007 1:34 PM CDT Narrative 11/25/2007 5:05 PM CDT [place] [address] [place], [place] [address] Admit Date: 11/21/2007 SHAE BURTON Sex: F Admit Prov: TOY JJ Date: 1955 Primary Care Prov: YOUSIF DOMINGUEZ CMRN: [id number] Room: [facility] SSN: [id number] IMAGING SERVICES Ordering Prov: TOY JJ Accession Number: [id number] Addendum ADDENDUM TO MAMMOGRAPHY REPORT OF 11/21/2007 The patient's prior studies from [facility] [facility] in [place], [place] dated August 2006 have just been made available for comparison. When comparing with the previous examination, the current mammogram is stable. No new dominant masses, areas of asymmetry, or suspicious clustered microcalcifications are identified within either breast. Comparison with the patient's prior mammograms also from [facility] dated August 2005 demonstrates a breast cyst at the 2:00 position of the right breast. No cyst was identified on the current examination. These findings are benign and concordant. Overall Assessment: BI-RADS Category: 1, negative. Recommendation: Close clinical followup of this patient is warranted secondary to her strong family history of breast cancer. Assessment BIRADS: 1-Negative Recommendation: Normal interval follow-up Dictated by: SANIYA WILSON Electronically signed by: SANIYA WILSON 11/25/2007 17:04 Transcribed: 11/25/2007 14:13 DKT Interpretation BILATERAL FULL FIELD DIGITAL DIAGNOSTIC MAMMOGRAMS WITH COMPUTER AIDED DIAGNOSIS AND BILATERAL BREAST ULTRASOUND. 11/21/2007 History: Patient has extremely strong family history of breast cancer. This includes a mother diagnosed with breast and uterine cancer, 2 sisters diagnosed with breast cancer in the mid 30s, maternal grandmother diagnosed with breast cancer, and maternal aunt diagnosed with breast cancer in her early 30s. Technique: Bilateral full field digital diagnostic mammogram was performed. CAD was utilized. No prior studies are available for comparison at this institution. Breast composition: Heterogeneously dense which lowers sensitivity of mammography. Findings: No dominant masses, areas of asymmetry or suspicious clustered microcalcifications are identified within either breast. The CAD system detects no other significant abnormalities. Bilateral breast ultrasound was performed. This demonstrates only dense breast tissue. No solid or cystic lesions are identified. Overall assessment: BIRADS category 1 - Negative Recommendations: Annual mammography is recommended. Report revised on 11/25/2007 5:04:44 PM by SANIYA WILSON Assessment BIRADS: 1-Negative Recommendation: Normal interval follow-up Dictated by: SANIYA WILSON Electronically signed by: SANIYA WILSON 11/24/2007 07:50 Transcribed: 11/21/2007 16:43 AMK Procedure Note Saniya Wilson - 11/25/2007 [facility] [address] [place], [place] [address] Admit Date: 11/21/2007 JOSEPHINE SHAE R Sex: F Admit Prov: TOY JJ Date: 1955 Primary Care Prov: YOUSIF DOMINGUEZ CMRN: [id number] Room: [facility] SSN: [id number] IMAGING SERVICES Ordering Prov: TOY JJ Addendum ADDENDUM TO MAMMOGRAPHY REPORT OF 11/21/2007 [facility] [place], [place] dated August 2006 have just been made available for comparison. When comparing with the previous examination, thecurrent mammogram is stable. No new dominant masses, areas of asymmetry, or suspicious clustered microcalcifications are identified withineither breast. [facility] with the [facility] demonstrates a breast cyst at the 2:00position of the right breast. No cyst was identified on the current examination.These findings are benign and concordant. Overall Assessment: BI-RADS Category: 1, negative. Recommendation: Close clinical followup of this patient iswarranted secondary to her strong family history of breast cancer. Assessment BIRADS: 1-Negative Recommendation: Normal interval follow-up Dictated by: SANIYA WILSON Electronically signed by: SANIYA WILSON 11/25/2007 17:04 Transcribed: 11/25/2007 14:13 DKT Interpretation BILATERAL FULL FIELD DIGITAL DIAGNOSTIC MAMMOGRAMS WITH COMPUTERAIDED DIAGNOSIS AND BILATERAL BREAST ULTRASOUND. 11/21/2007 History: Patient has extremely strong family history of breastcancer. This includes a mother diagnosed with breast and uterine cancer, 2sisters diagnosed with breast cancer in the mid 30s, maternal grandmotherdiagnosed with breast cancer, and maternal aunt diagnosed with breast cancer inher early 30s. Technique: Bilateral full field digital diagnostic mammogram wasperformed. CAD was utilized. No prior studies are [facility]. Breast composition: Heterogeneously dense which lowers sensitivityof mammography. Findings: No dominant masses, areas of asymmetry or suspiciousclustered microcalcifications are identified within either breast. The CADsystem detects no other significant abnormalities. Bilateral breast ultrasound was performed. This demonstrates onlydense breast tissue. No solid or cystic lesions are identified. Overall assessment: BIRADS category 1 - Negative Recommendations: Annual mammography is recommended. Report revised on 11/25/2007 5:04:44 PM by SANIYA WILSON Assessment BIRADS: 1-Negative Recommendation: Normal interval follow-up Dictated by: SANIYA WILSON Electronically signed by: SANIYA WILSON 11/24/2007 07:50 Transcribed: 11/21/2007 16:43 AMK us Toy Jj MD MAMMO ORDERABLES Edite d * MRI BREAST W CONTRAST BILAT (11/21/2007 11:56 AM CDT) Anatomical Region Laterality Modality Breast Bilateral Other 11/21/2007 11:5 6 AM CDT Narrative 11/24/2007 7:53 AM CDT [facility] [address] [place], [place] [address] Admit Date: 11/21/2007 SHAE BURTON Sex: F Admit Prov: TOY JJ Date: 1955 Primary Care Prov: ANGELICAYOUSIF CMRN: [id number] Room: [facility] SSN: [id number] IMAGING SERVICES Ordering Prov: TOY JJ Accession Number: [id number] Interpretation BILATERAL BREAST MRI WITH IV CONTRAST. 11/21/2007 History: Extremely strong family history of breast cancer. Patient has had a history of benign biopsies of both breasts. The patient's physician found a lump approximately 10 days ago in the right breast. Technique: Multisequence multiplanar breast MRI was performed before and after the intravenous administration of 11 ml of Optimark. No prior studies are available for comparison. Correlation is made with patient's diagnostic mammogram and bilateral breast ultrasound performed on the same day. Breast composition: Heterogeneously dense. Minimal background enhancement is identified. Findings: No suspicious enhancing masses are identified within either breast. No skin thickening or lymphadenopathy is identified. Overall assessment: BIRADS category 1 - Negative Recommendation: Annual mammography and annual breast MRI are recommended in this patient with extremely strong family history of breast cancer. Dictated by: SANIYA WILSON Electronically signed by: SANIYA WILSON 11/24/2007 07:53 Transcribed: 11/21/2007 16:45 AMK Procedure Note Saniya Wilson - 11/24/2007 [facility] [address] [facility] [place], [place] [address] Admit Date: 11/21/2007 SHAE BURTON Sex: F Admit Prov: TOY JJ Date: 1955 Primary Care Prov: YOUSIF DOMINGUEZ CMRN: [id number] [id number] [facility] SERVICES Ordering Prov: TOY JJ Interpretation BILATERAL BREAST MRI WITH IV CONTRAST. 11/21/2007 History: Extremely strong family history of breast cancer. Patienthas had a history of benign biopsies of both breasts. The patient's physicianfound a lump approximately 10 days ago in the right breast. Technique: Multisequence multiplanar breast MRI was performed beforeand after the intravenous administration of 11 ml of Optimark. Noprior studies are available for comparison. Correlation is made withpatient's diagnostic mammogram and bilateral breast ultrasound performed on the day. Breast composition: Heterogeneously dense. Minimal backgroundenhancement is identified. Findings: No suspicious enhancing masses are identified withineither breast. No skin thickening or lymphadenopathy is identified. Overall assessment: BIRADS category 1 - Negative Recommendation: Annual mammography and annual breast MRI are recommended in thispatient with extremely strong family history of breast cancer. Dictated by: SANIYA WILSON Electronically signed by: SANIYA WILSON 11/24/2007 07:53 Transcribed: 11/21/2007 16:45 AMK Toy Jj MD MR ORDERABLES Final Result * POC CREATININE (11/21/2007 11:27 AM CDT) CREATININE POC 0.8 0.6 - 1.3 mg/dL [facility] GFR, >60 >=60 mL/min/1.7 sq meter [facility] GFR >60 >=60 mL/min/1.7 sq meter [facility] Capillary blood specimen (specimen) 11/21/2007 11:27 AM CDT 11/21/2007 11:27 AM CDT us Toy Jj MD POINT OF CARE TESTING Edited INTERFACE SYSTEM Refer to clinic/hospital department [facility] CLIA# [id number] [address] [place] [id number] documented in this encounter Visit Diagnoses Diagnosis Lump or mass in breast documented in this encounter Care Teams Freight Tallier Relationship Specialty Start Date End Date Bharat Rushing MD PCP - General Family Practice 05/24/16 documented as of this encounter
--- OUTSIDE RECORDS SUMMARY | 2024-04-10 13:54 | XMS_ITS | Encounter Summary ---
Author Organization [facility] Address [address] [place] [address] Care Team Providers Care Advanced Research Programs Director Name Role Phone Bharat Rushing MD Primary Care Provider [phone] Encounter Details Date Type Department Care Team (Late st Contact Info) Description 06/14/2006 Outpatient Historical [facility] [address] 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 Gender Identity Not on file Sexual Orientation Not on file documented as of this encounter Plan of Treatment Upcoming Encounters Date Type Department Care Team (Late st Contact Info) Description 07/03/2024 10:30 AM CDT Office Visit [facility] GASTROENTEROLOGY - [address] [facility] 102 [address] [facility] [address] [place] [address] [place] [address] [facility] [address] [place] [address] documented as of this encounter Visit Diagnoses Not on filedocumented in this encounter Care Teams Advanced Research Programs Director Relationship Specialty Start Date End Date Bharat Rushing MD PCP - General Family Practice 05/24/16 documented as of this encounter
--- OUTSIDE RECORDS SUMMARY | 2024-04-10 13:55 | XMS_ITS | Encounter Summary ---
Author Organization [facility] Address [address] [place] [address] Phone Care Team Providers Care Traffic Circuit Engineer Name Role Phone Alejandro Yuan MD Unavailable [phone] Bharat Rushing MD Primary Care Provider [phone] Devon Peres DO Unavailable [phone] Aakash Hays MD Unavailable [phone] Tom Alfred MD Primary Care Provider [phone] Encounter Details Date Type Department Care Team (Late st Contact Info) Description 11/06/2019 Telephone [facility] [address] [place] [address] Devon Peres, DO [address] [place] [address] Social History Tobacco Use Types Packs/Day Years Used Date Smoking Tobacco: Former Cigarettes 0.5 24.3 0 11/08/1979 - 02/26/2004 Smokeless Tobacco: Never Alcohol Use Standard Drinks/Week Comments No 0 (1 standard drink = 0.6 oz pur e alcohol) PHQ-2 Answer Date Recorded PHQ-2 Score 0 10/23/2018 Comments Unknown Sex and Gender Information Value Date Recorded Sex Assigned at Not on file Legal Sex Female 10:46 AM CDT Gender Identity Not on file Sexual Orientation Not on file documented as of this encounter Miscellaneous Notes * Telephone Encounter - Kate White - 11/06/2019 1:09 PM CDT PATIENT WAS A NO-SHOW, CALLED PATIENT AND LVM FOR PATIENT TO GIVE US A CALL TO RESCHEDULE ALSO SENTOUT A LETTER. documented in this encounter Plan of Treatment Upcoming Encounters Date Type Department Care Team (Late st Contact Info) Description 05/08/2024 11:30 AM CDT Clinical Support [facility] [address] [phone] Nurse, [facility] 06/10/2024 11:30 AM CDT Lab [facility] [address] [phone] Lab, [facility] 06/12/2024 11:00 AM CDT Office Visit [facility] [address] [phone] Devon Peres, DO [address] [place] [phone] 06/12/2024 11:15 AM CDT Clinical Support [facility] [address] [phone] Nurse, [facility] documented as of this encounter Visit Diagnoses Not on filedocumented in this encounter Additional Health Concerns Assessment Noted Time PHQ-9 Depression Total Score: 0 03/31/19 20 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 documented as of this encounter Care Teams Traffic Circuit Engineer Relationship Specialty Start Date End Date Bharat Rushing MD [address] [id number] PCP - General Family Medicine 03/27/16 01/08/23 Tom Alfred [facility] [address] [phone] PCP - General Family Medicine 01/09/23 Alejandro Yuan MD [address] [address] Gastroenterology 12/21/15 10/11/21 Devon Peres DO [address] [place] [phone] Consulting Physician Oncology 10/03/20 Aakash Hays MD [address] [address] Gastroenterology 10/12/21 documented as of this encounter
--- OUTSIDE RECORDS SUMMARY | 2024-04-10 13:55 | XMS_ITS | Referral Summary ---
Author Organization [facility] Address [address] [place] [address] Care Team Providers Care Service Liaison Representative Name Role Phone Aakash Cantu MD Unavailable [phone] Tom Alfred MD Primary Care Provider Encounters Date Type Department Care Team Description 03/18/2024 Telephone [facility] Orthopaedic Surgery [address] [place] [address] 1st Floor [address] [place] [address] Papo Fang MD 02/10/2024 3:20 PM BAG MACHINE ADJUSTER Lab [facility] [address] [place] [address] 01/17/2024 5:40 PM BAG MACHINE ADJUSTER - 01/17/2024 8:24 PM BAG MACHINE ADJUSTER Emergency [address] [address] Pruritus (Primary Dx); Constipation, unspecified constipation type Discharge Disposition: Discharge to home or self care 01/13/2024 Telephone [facility] Gastroenterology [address] [place] [address] Medical Office Building [address], [address] [place] [address] Vesta Javier RN Unsuccessful Phone Call 1; Follow-up from Last 3 Months Allergies Active Allergy Reactions Criticality Noted Date [...] 1 drop into both eyes every morning 023 Active fluticasone-umecl idin-vilanter (Trelegy Ellipta) 100-62.5-25 mcg [...] 4 (four) hours as needed for pain Active citalopram (CeleXA) 40 mg tabletIndications :Anxiety [...] by mouth 2 (two) times a day Active pancrelipase (Creon) 24,000 units of lipase capsuleIndication s:exocrine pancreatic insufficiency Take 2 capsules by mouth 3 (three) times a day with meals 180 capsule 11 2024 Active melatonin 10 mg tabletIndications :sleep [...] meal 60 tablet 3 024 2024 Disconti nued(Reo rder) Active Problems Problem Noted Date Diagnosed [...] months. Assessment & Plan (01/12/2022 8:52 AM BAG MACHINE ADJUSTER): The chest CT suggests interstitial lung disease [...] asthma. Assessment & Plan (01/12/2022 8:51 AM BAG MACHINE ADJUSTER): I will add Mucinex 600 mg p.o. [...] a message at the PFT lab in [place] to have the PFTs moved up. Assessment [...] (03/11/2020): Added automatically from request for surgery [id number] Spinal stenosis, lumbar dasia on, with neurogenic claudication 09/04/2018 Overview (09/04/2018): Added automatically from request for surgery [id number] Examination for normal comparison for clinical r esearch 09/04/2018 Overview (09/04/2018): Added automatically from request for surgery [id number] Situational anxiety 05/28/2018 Mild persistent asthma without complication 04/2018 Assessment & Plan (06/20/2022 3:15 PM CDT): The patient is breathing has been under fairly good control with Trelegy 1 puff daily and p.r.n. albuterol. She continues to use Mucinex 600 mg p.o. b.i.d. to thin secretions. Assessment & Plan (01/12/2022 8:51 AM BAG MACHINE ADJUSTER): She continues on Trelegy and albuterol MDI. [...] surgery Idiopathic hypotension 04/15/2017 Iron deficiency anemia cesarioelvi rameyy to inadequate dietary iron intake 04/05/2017 Osteoarthritis of spine with radiculopathy, lumb ar region 12/26/2016 Globus sensation 10/16/2016 Weight loss 09/18/2016 Hiatal hernia 09/04/2016 Anxiety 07/06/2016 Hiatal hernia 06/25/2016 Psychophysiological insomnia 05/29/2016 Atrial fibrillation ([facility]) 04/03/2016 Overview (10/09/2018): Documented on EKG several years ago, she has never worn a Holter monitor. Palpitations consistent with her A. fib occur daily per patient History of peptic ulcer disease 04/03/2016 Overview (10/09/2018): Managed by Dr. Yuan Chronic pancreatitis ([facility]) 04/03/2016 Overview (10/09/2018): On pancreatic enzyme supplementation Gastroesophageal reflux disease 04/03/2016 Overview (10/09/2018): Status post Camille fundoplication in 2008. Managed by Dr[address] Yuan Iron deficiency anemia cesarioelvi rameyy to inadequate dietary iron intake 01/04/2016 Anemia 10/05/2014 Overview (05/31/2016): Anemia Neck pain 10/05/2014 Overview (05/31/2016): Cervical spine pain Chronic pancreatitis ([facility]) 10/05/2014 Overview (05/31/2016): Chronic pancreatitis Osteoarthritis of cervical spine 10/05/2014 Overview (05/31/2016): Cervical spondylosis Temporary cerebral vascular dysfunction 10/06/19 15 Overview (05/31/2016): TIA (transient ischemic attack) Neck sprain 07/20/2014 Overview (05/31/2016): Neck sprain Epigastric pain 02/11/2014 Resolved Problems Problem Noted Date Diagnosed Date Resolved Date Centrilobular emphysema [place] 03/13/2018 11/15/2021 Mild persistent asthma without complication 08/06/2016 04/14/2020 Asthma 07/06/2016 04/14/2020 Chronic obstructive pulmonar y disease ([facility] 03/22/2016 11/15/2021 Immunizations Name Administration Dates Next Due DTaP 08/27/2013 Hep A, Adult 07/22/2020 Influenza, Quadrivalent, Hig h Dose, Preservative Free, Intrr 03/15/2022(Deferred: Patient Refused) Influenza, Unspecified 11/01/2021(Deferred: Magda ent decision) Pfizer SARS-CoV-2 Monovalent Vaccination (12+ Yrs) PURPLE 01/29/2021,07/09/2020,06/18/2020 Pneumococcal Conjugate Pcv20 01/16/2022 TD Preservative Free 11/05/2013 Tdap 08/16/2012 Social History Tobacco Use Types Packs/Day Years [...] materials from doctor or pharmacy Never 11/27/2023 [facility] Utilities Answer Date Recorded In the past 12 months has th e [employer], [employer], oil, or water [employer] threatened to shut off services in your [...] often do you attend chur ch or orthodox services? 1 to 4 times per year 10/21/2023 Do you belong to any clubs o r organizations such as lutheran groups, unions, fraternal or athletic groups, or [...] staff should administer the PHQ-9) 0 03/15/2022 [facility] - Occupational Stress Questionnaire Answer Date Recorded [...] any time in the past 12 m [facility], were you homeless or living in a penitentiary (including now)? No 10/21/2023 Personal Safety Answer Date Recorded Have you ever been in or are you currently in a harmful physical or emotional relationship or is someone making you feel afraid or unsafe? Denies 01/17/2024 Comments No Sex and Gender Information Value Date Recorded Sex Assigned at Not on file Legal Sex Female 2:03 AM BAG MACHINE ADJUSTER Gender Identity Female 02/26/2020 12:09 PM BAG MACHINE ADJUSTER Sexual Orientation Straight 02/26/2020 12 :09 PM BAG MACHINE ADJUSTER Last Filed Vital Signs Vital Sign Reading Time Taken Comments Blood Pressure 110/61 01/17/2024 4:41 PM BAG MACHINE ADJUSTER Pulse 81 01/17/2024 4:41 PM BAG MACHINE ADJUSTER Temperature 36.4 C (97.5 F) 01/17/2024 4:41 PM BAG MACHINE ADJUSTER Respiratory Rate 20 01/17/2024 4:41 PM BAG MACHINE ADJUSTER Oxygen Saturation 100% 01/17/2024 4:41 PM BAG MACHINE ADJUSTER Inhaled Oxygen Concentration - - Weight 37.6 kg (83 lb) 01/17/2024 4:41 PM BAG MACHINE ADJUSTER Height 157.5 cm (5' 2 ) 01/17/2024 4:41 PM BAG MACHINE ADJUSTER Body Mass Index 15.18 01/17/2024 4:41 PM BAG MACHINE ADJUSTER Plan of Treatment Not on file Medical Devices Implanted Type Area Medical Csr Device Identifier Shelf Expiration Date Model / Serial / Lot Musculoskeletal Transplant 60mmx5+ Mm Allograft Frozen Graft Bone Fibula Shaft [id number] - [id number] - [id number] Implanted:Qty: 1 on 07/12/2021 by Rosario Lyons MD at [facility] Bone Left: Humerus Musculoskeletal Transplant 02/11/2025 [id number] / [id number] / Explanted Type Area Medical Csr Device Identifier Shelf Expiration Date Model / Serial / Lot Synthes Lcp Combi Philos [id number] 3 Hole Shaft Lock Compression 241.901 - [id number] Implanted:Qty: 1 on 07/12/2021 by Rosario Lyons MD at [facility] Explanted:Qty: 1 on 07/08/2023 by Papo Fang MD at [facility] Plate Left: Humerus Synthes I 241.901 / / Synthes 3.5mm 2.9mm 26mm Self Tap Lock Stardrive Conical Head T15 Full 212.109 - [id number] Implanted:Qty: 1 on 07/12/2021 by Rosario Lyons MD at [facility] Explanted:Qty: 1 on 07/08/2023 by Papo Fang MD at [facility] Screw Left: Humerus Synthes I 212.109 / / Synthes 3.5mm 6mm 32mm 2.5mm Self Tap Small Hexagonal Socket Low Profile 204.832 - [id number] Implanted:Qty: 1 on 07/12/2021 by Rosario Lyons MD at [facility] Explanted:Qty: 1 on 07/08/2023 by Ppao Fang MD at [facility] Screw Left: Humerus Synthes I 204.832 / / Synthes 3.5mm 6mm 26mm 2.5mm Self Tap Small Hexagonal Socket Low Profile 204.826 - [id number] Implanted:Qty: 1 on 07/12/2021 by Rosario Lyons MD at [facility] Explanted:Qty: 1 on 07/08/2023 by Papo Fang MD at [facility] Screw Left: Humerus Synthes I 204.826 / / Synthes 3.5mm 2.9mm 50mm Self Tap Lock Stardrive Conical Head T15 Full 212.121 - [id number] Implanted:Qty: 1 on 07/12/2021 by Rosario Lyons MD at [facility] Explanted:Qty: 1 on 07/08/2023 by Papo Fang MD at [facility] Screw Left: Humerus Synthes I 212.121 / / Synthes 3.5mm 2.9mm 40mm Self Tap Lock St[employer]rive Conical Head T15 Full 212.117 - [id number] Implanted:Qty: 5 on 07/12/2021 by Rosario Lyons MD at [facility] Explanted:Qty: 5 on 07/08/2023 by Papo Fang MD at [facility] Screw Left: Humerus Synthes I 212.117 / / Synthes 3.5mm 2.9mm 45mm Self Tap Lock Stardrive Conical Head T15 Full 212.119 - [id number] Implanted:Qty: 1 on 07/12/2021 by Rosario Lyons MD at [facility] Explanted:Qty: 1 on 07/08/2023 by Papo Fang MD at [facility] Screw Left: Humerus Synthes I 212.119 / / Synthes 3.5mm 2.9mm 35mm Self Tap Lock Stardrive Conical Head T15 Full 212.114 - [id number] Implanted:Qty: 2 on 07/12/2021 by Rosario Lyons MD at [facility] Explanted:Qty: 2 on 07/08/2023 by Papo Fang MD at [facility] Screw Left: Humerus Synthes I 212.114 / / Synthes 3.5mm 6mm 24mm 2.5mm Self Tap Small Hexagonal Socket Low Profile 204.824 - [id number] Implanted:Qty: 2 on 07/12/2021 by Rosario Lyons MD at [facility] Explanted:Qty: 2 on 07/08/2023 by Papo Fang MD at [facility] Screw Left: Humerus Synthes I 204.824 / / [employer] Willy .062in 9in Trocar [employer] [id number] - [id number] Explanted:Qty: 1 on 07/12/2021 by Rosario Lyons MD at [facility] Left: Humerus [employer] [id number] NS / / Procedures Procedure Name Priority Date/Time Associated Diagnosis Comments EGFR Routine 02/10/2024 3:42 PM BAG MACHINE ADJUSTER COMPREHENSIVE METABOLIC PANEL Routine 02/10/2024 3:42 PM BAG MACHINE ADJUSTER HEMOGLOBIN A1C Routine 02/10/2024 3:42 PM BAG MACHINE ADJUSTER LIPID PANEL Routine 02/10/2024 3:42 PM BAG MACHINE ADJUSTER HEPATITIS C ANTIBODY Routine 02/10/2024 3:42 PM BAG MACHINE ADJUSTER XR ABDOMEN AP 1 VIEW ED 01/17/2024 6:25 PM BAG MACHINE ADJUSTER XR CHEST PA LATERAL 2 VIEWS ED 01/17/2024 6:24 PM BAG MACHINE ADJUSTER EGFR STAT 01/17/2024 6:20 PM BAG MACHINE ADJUSTER DIFFERENTIAL AUTO STAT 01/17/2024 6:2 0 PM BAG MACHINE ADJUSTER THYROID FUNCTION CASCADE STAT 01/17/2024 6:20 PM BAG MACHINE ADJUSTER COMPREHENSIVE METABOLIC PANEL STAT 01/17/2024 6:20 PM BAG MACHINE ADJUSTER CBC WITH AUTO DIFFERENTIAL STAT 01/17/2024 6:20 PM BAG MACHINE ADJUSTER COLONOSCOPY 12/24/2022 1:55 PM CDT DEXA AXIAL [...] Maintenance Results * eGFR (02/10/2024 3:42 PM BAG MACHINE ADJUSTER) eGFR 83 >=60 mL/min/1. 73 m2 Comment: [...] last reviewed 2020. Blood 02/10/2024 3:42 PM BAG MACHINE ADJUSTER 02/10/2024 4:13 PM BAG MACHINE ADJUSTER us Tom Alfred MD LAB BLOOD ORDERABLES Final Result Performing Organization Address [facility] de Phone Number [place] [address] [place] [address] * Hepatitis C antibody Blood (02/10/2024 3:42 PM BAG MACHINE ADJUSTER) Pathologist [facility] Hep C Ab Nonreactive Nonreactive Comment: Antibodies [...] revised on 2019. Blood 02/10/2024 3:42 PM BAG MACHINE ADJUSTER 02/10/2024 4:13 PM BAG MACHINE ADJUSTER Tom Alfred MD LAB MICROBIOLOGY - GENERAL ORDERABLES Final Result Performing Organization Address [facility] de Phone Number [place] [address] [place] [address] * Hemoglobin A1c (02/10/2024 3:42 PM BAG MACHINE ADJUSTER) [facility] Hgb A1C 5.6 4.0 - 5.6 % Estimated Average Glucose 114 mg/dL RUSSELL Comment: The ADA recommends reporting an estimated Average Glucose (eAG) with all Hemoglobin A1c results using the equation derived from a study of 507 normal and diabetic adults. Minority populations were underrepresented and children were not included. (Diabetes Care 31:4385-4250, 2008). The eAG is not equivalent to a fasting glucose. Blood 02/10/2024 3:42 PM BAG MACHINE ADJUSTER 02/10/2024 4:13 PM BAG MACHINE ADJUSTER Tom Alfred MD LAB BLOOD ORDERABLES Final Result Performing Organization Address [facility] de Phone Number RUSSELL [address] [facility] Department [place] [address] * Lipid panel (02/10/2024 3:42 PM BAG MACHINE ADJUSTER) Cholesterol 173 30 - 199 mg/dL Comment: [...] mg/dL High: >160 mg/dL Calculated using the Cyrus LDL-C estimating equation. This equation was implemented on 2023. Prior to this date LDL-C was estimated using the Friedewald equation. Literature References: 1. Expert Panel on Integrated Guidelines for Cardiovascular Health and Risk Reduction in Children and Adolescents. Pediatrics 2011;128:S213 2. NCEP Expert Panel. Circulation 2004;110:227 3. Cyrus Hatfield et al. CAR Cardiol. 2020 June 25;5(5):540-548. doi: 10.1001/jamacardio.2020.0013 Current Interpretive Data was last revised on 2023. Non-HDL Cholesterol 102 mg/dL RUSSELL ORTIZ Comment: Interpretive Data Ages < or = [...] last revised on 2017. Chol/HDL ratio 2 RUSSELL ORTIZ Blood 02/10/2024 3:42 PM BAG MACHINE ADJUSTER 02/10/2024 4:13 PM BAG MACHINE ADJUSTER us Tom Alfred MD LAB BLOOD ORDERABLES Final Result RUSSELL ORTIZ [address] [facility] Department [place] [address] * (ABNORMAL) Comprehensive metabolic panel (02/10/2024 3:42 PM BAG MACHINE ADJUSTER) Sodium 138 135 - 145 mmol/L Potassium, pl 4.1 3.3 - 4.9 mmol/L [facility] Chloride 104 97 - 110 mmol/L [facility] CO2 21(L) 22 - 32 mmol/L [facility] Anion gap 13 2 - 15 mmol/L [facility] BUN 14 6 - 25 mg/dL [facility] Creatinine 0.77 0.60 - 1.10 mg/dL [facility] Glucose 128 70 - 199 mg/dL [facility] Comment: Interpretive Data Fasting glucose >/= 126 [...] classification and Diagnosis of Diabetes Diabetes Care 202; 46: S19-S40. Current interpretive data was last revised 2022. Calcium 9.9 8.5 - 10.3 mg/dL [facility] Bilirubin, total 0.2 0.1 - 1.2 mg/dL [facility] Protein, pl 6.3(L) 6.5 - 8.5 g/dL [facility] Albumin 3.6 3.5 - 5.0 g/dL [facility] Alk phos 79 40 - 130 Units/L [facility] ALT 16 7 - 45 Units/L [facility] AST 18 10 - 45 Units/L [facility] Blood 02/10/2024 3:42 PM BAG MACHINE ADJUSTER 02/10/2024 4:13 PM BAG MACHINE ADJUSTER us Tom Alfred MD LAB BLOOD ORDERABLES Final Result [facility] [address] [facility] Department of Laboratories [place], [place] [id number] * XR Abdomen Ap 1 Vw (01/17/2024 6:25 PM BAG MACHINE ADJUSTER) Anatomical Region Laterality Modality Body, Abdomen N/A Computed Radiogr aphy 01/17/2024 7:07 PM BAG MACHINE ADJUSTER Narrative 01/17/2024 7:09 PM BAG MACHINE ADJUSTER EXAM DESCRIPTION: XR ABDOMEN AP 1 VIEW [...] Jocy Simon M.D. FT T: Report ID: [id number] Reading Location: [id number] Procedure Note Jocy Upton MD - 01/17/2024 [...] Jocy Simon M.D. FT T: Report ID: [id number] Reading Location: [id number] us Susan Reyez NP IMG XR PROCEDURES Final Resul t * XR Chest Pa Lateral 2 Views (01/17/2024 6:24 PM BAG MACHINE ADJUSTER) Anatomical Region Laterality Modality Body, Chest N/A Computed Radiogr aphy 01/17/2024 7:09 PM BAG MACHINE ADJUSTER Narrative 01/17/2024 7:10 PM BAG MACHINE ADJUSTER EXAM DESCRIPTION: XR CHEST PA LATERAL 2 [...] Jocy Simon M.D. FT T: Report ID: [id number] Reading Location: [place] [address] Procedure Note Jocy Upton MD - 01/17/2024 [...] Jocy Simon M.D. FT T: Report ID: [id number] Reading Location: [id number] Susan Reyez NP IMG XR PROCEDURES Final Resul t * eGFR (01/17/2024 6:20 PM BAG MACHINE ADJUSTER) eGFR >90 >=60 mL/min/1. 73 m2 Comment: [...] last reviewed 2020. Blood 01/17/2024 6:20 PM BAG MACHINE ADJUSTER 01/17/2024 6:20 PM BAG MACHINE ADJUSTER Susan Reyez NP LAB BLOOD ORDERABLES Final Re sult [facility]US[facility]LL [address] [facility] Department [place] [address] * (ABNORMAL) Differential, auto (01/17/2024 6:20 PM BAG MACHINE ADJUSTER) Neutrophil abs 6.9(H) 1.5 - 6.5 K/cumm Imm gran abs 0.1 0.0 - 0.1 K/cumm RUSSELL Lymphocyte abs 0.3(L) 0.8 - 3.3 K/cumm RUSSELL Monocyte abs 0.3 0.2 - 0.8 K/cumm [facility] Eosinophil abs 0.0 0.0 - 0.5 K/cumm [facility] Basophil abs 0.1 0.0 - 0.1 K/cumm [facility] Neutrophil pct 90.3 % [facility] Comment: Interpretive Data Percent cell count reference ranges are not reported, since discordance with absolute values may lead to misinterpretation of CBC data. Current Interpretive Data was last revised on 2017. Imm gran pct 1.2 % [facility] Comment: Interpretive Data Percent cell count reference ranges are not reported, since discordance with absolute values may lead to misinterpretation of CBC data. Current Interpretive Data was last revised on 2017. Lymphocyte pct 3.8 % [facility] Comment: Interpretive Data Percent cell count reference ranges are not reported, since discordance with absolute values may lead to misinterpretation of CBC data. Current Interpretive Data was last revised on 2017. Monocyte pct 3.9 % [facility] Comment: Interpretive Data Percent cell count reference ranges are not reported, since discordance with absolute values may lead to misinterpretation of CBC data. Current Interpretive Data was last revised on 2017. Eosinophil pct 0.0 % [facility] Comment: Interpretive Data Percent cell count reference ranges are not reported, since discordance with absolute values may lead to misinterpretation of CBC data. Current Interpretive Data was last revised on 2017. Basophil pct 0.8 % [facility] Comment: Interpretive Data Percent cell count reference ranges are not reported, since discordance with absolute values may lead to misinterpretation of CBC data. Current Interpretive Data was last revised on 2017. Blood 01/17/2024 6:20 PM BAG MACHINE ADJUSTER 01/17/2024 6:20 PM BAG MACHINE ADJUSTER us Susan Reyez NP LAB BLOOD ORDERABLES Final Re sult RUSSELL ORTIZ [address] [facility] Department [place] [address] * Thyroid Function [place] (01/17/2024 6:20 PM BAG MACHINE ADJUSTER) TSH 0.90 0.30 - 4.20 mcIUnit/mL Blood 01/17/2024 6:20 PM BAG MACHINE ADJUSTER 01/17/2024 6:20 PM BAG MACHINE ADJUSTER Susan Reyez ASSOCIATE DRAFTER LAB BLOOD ORDERABLES Final Re sult Performing Organization Address City/[facility]/ZIP Co de Phone Number RUSSELL [address] [place] [address] * (ABNORMAL) CBC with auto differential (01/17/2024 6:20 PM BAG MACHINE ADJUSTER) [facility] WBC 7.7 3.8 - 9.9 K/cumm Hgb 10.6(L) 11.9 - 15.5 g/dL [facility] Hct 33.7(L) 35.6 - 45.5 % [facility] Plt 267 150 - 400 K/cumm [facility] MPV 9.6 9.1 - 12.3 fL [facility] RBC 3.48(L) 3.90 - 5.20 M/cumm [facility] MCV 96.8(H) 81.3 - 96.4 fL [facility] MCH 30.5 27.1 - 33.3 pg [facility] MCHC 31.5(L) 32.3 - 35.7 g/dL [facility] RDW CV 18.4(H) 11.1 - 14.9 % [facility] RDW SD 65.1(H) 35.7 - 48.1 fL [facility] NRBC abs 0.03(H) 0.00 - 0.01 K/cumm [facility] Blood 01/17/2024 6:20 PM BAG MACHINE ADJUSTER 01/17/2024 6:20 PM BAG MACHINE ADJUSTER us Susan Reyez ASSOCIATE DRAFTER LAB BLOOD ORDERABLES Final Re sult RUSSELL [address] [place] [place] [address] * (ABNORMAL) Comprehensive metabolic panel (01/17/2024 6:20 PM BAG MACHINE ADJUSTER) [facility] Sodium 137 135 - 145 mmol/L Potassium, pl 3.9 3.3 - 4.9 mmol/L [facility] Chloride 104 97 - 110 mmol/L [facility] CO2 24 22 - 32 mmol/L [facility] Anion gap 9 2 - 15 mmol/L [facility] BUN 12 6 - 25 mg/dL [facility] Creatinine 0.53(L) 0.60 - 1.10 mg/dL [facility] Glucose 112 70 - 199 mg/dL [facility] Comment: Interpretive Data Fasting glucose >/= 126 [...] classification and Diagnosis of Diabetes Diabetes Care 202; 46: S19-S40. Current interpretive data was last revised 2022. Calcium 8.9 8.5 - 10.3 mg/dL [facility] Bilirubin, total 0.4 0.1 - 1.2 mg/dL [facility] Protein, pl 5.7(L) 6.5 - 8.5 g/dL [facility] Albumin 3.8 3.5 - 5.0 g/dL [facility] Alk phos 58 40 - 130 Units/L [facility] ALT 13 7 - 45 Units/L [facility] AST 18 10 - 45 Units/L [facility] Blood 01/17/2024 6:20 PM BAG MACHINE ADJUSTER 01/17/2024 6:20 PM BAG MACHINE ADJUSTER Susan Reyez ASSOCIATE DRAFTER LAB BLOOD ORDERABLES Final Re sult [facility] [address] [facility] Department [place] [address] * COLONOSCOPY (12/24/2022 1:55 PM CDT) Anatomical Region Laterality Modality Other Narrative Procedure Note Megan Lauren MD - 12/24/2022 1:55 PM CDT [facility] Patient Name: Shae South Procedure Date: 12/24/2022 1:55 PM Date of : 1955 Admit Type: Outpatient Age: 67 Gender: Female Attending MD: Megan Lauren M.D. Room: [facility] ENDOSCOPY ROOM 9 Note Status: Finalized Procedure: [...] The scope was passed under direct vision.The PCF [id number] endoscope was introducedthrough the anus and advanced to the cecum/ileum,identified by ileocecal valve. The colonoscopy was performed without difficulty. The patient tolerated the procedure well. The quality of the bowelpreparation was poor. The quality of the bowel preparation was evaluated using the BBPS ([place] Bowel Preparation Scale) with scores of: Right [...] has a colonoscopy last year exam in [facility], exam to cecum good prep withnegative exam, performed for eval of iron def anemia. 10 yrFU [facility] This exam was performed due to ongoing diarrhea,and colitis on imaging. NO plan at this time to repeat exam, will FU Path Recommendation: - Discharge patient to home. [...] following this procedure please call my office [phone] After hours and eveningsplease call [phone] and speak to the GI fellow oncall [...] On: 12/24/2022 1:55 PM Recognized by the [employer] for promoting quality [...] F with given history of screening. Postmenopausal Medical Csr/Model: Mclowd A (S/N [id number]) CLINICAL INFORMATION: Current height: 62 inches Maximum [...] Angel Duggan M.D. MF: [id number] Report ID: [id number] Reading Location: [id number] Procedure Note Jose Angel Duggan MD - 07/05/2022 EXAM DESCRIPTION: DEXA AXIAL SKELETON BONE DENSITY 1 OR MORE SITES REASON FOR STUDY: 66 y/o year old F with given history of screening. Postmenopausal Medical Csr/Model: Mclowd A ([id number]/N [id number]) CLINICAL INFORMATION: Current height: 62 inches Maximum [...] Angel Duggan M.D. MF: MAYTE Report ID: [id number] Reading Location: [id number] Bhavya ROMAN IMVick DXA PROCEDURES Final Result * Screening Mammogram [...] age 40, based on guidelines of the [employer] (ACR Practice Parameter for the Performance of Screening and Diagnostic Mammography) and [employer]. For women [...] Relevant to Health Maintenance Insurance MEDICARE [facility] MEDICARE Address: [address] [address] [place] [address] MEDICARE [facility] MEDICARE Address: [address] [place] [address] MEDICARE [facility] MEDICARE Address: [address] [address] [place] [address] UHC MDCR HMO [facility] Address: [address] [address] [place] [address] WORKERS COMPENSATION GENERIC MEDICARE [facility] MEDICARE Address: [address] [address] [place] [address] Advance Directives For more information, please contact: [phone] Documents on File Type Date Recorded Patient Car Sander Expl anation ADVANCE DIRECTIVE 01/14/2018 11:25 AM ADVANCE DIRECTIVE 08/04/2015 12:00 AM POWER OF MACHINING AND ASSEMBLY SUPERVISOR FINANCIAL/MEDICAL * Full Code (Latest Code Status [...] 10:17 AM 07/25/2023 4:12 PM Care Teams Service Liaison Representative Relationship Specialty Start Date End Date Tom Alfred MD PCP - General Family Medicine 11/15/22 Aakash Cantu MD Referring Physician Gastroenterology 01/14/18
--- OUTSIDE RECORDS SUMMARY | 2024-04-10 13:55 | XMS_ITS | Encounter Summary ---
Author Organization [facility] Facility Care Team Providers Care Professor Of Surgery Name Role Phone Bharat Rushing MD Primary Care Provider [phone] Aakash Cantu MD Unavailable [phone] Bhavya Zimmerman Primary Care Provider + Tom Alfred MD Primary Care Provider [phone] Encounter Details Date Type Department Care Team (Latest Contact Info) Description 04/10/2016 Orders Only [facility] CLINCONV Provider, MD Oli [address] [place] [address] Social History Tobacco Use Types Packs/Day Years Used Date Smoking Tobacco: Smoker, Current Status Unknown Alcohol Use Standard Drinks/Week Comments No 0 (1 standard drink = 0.6 oz pur e alcohol) Comments Unknown Sex and Gender Information Value Date Recorded Sex Assigned at Not on file Legal Sex Female 2:03 AM DENTAL NURSE Gender Identity Female 02/26/2020 12:09 PM DENTAL NURSE Sexual Orientation Straight 02/26/2020 12 :09 PM DENTAL NURSE documented as of this encounter Plan of Treatment Not on file documented as of this encounter Procedures Procedure Name Priority Date/Time Associated Diagnosis Comments SCAN - LABS 05/22/2016 12:00 AM CDT SCAN - LABS 04/16/2016 12:00 AM DENTAL NURSE documented in this encounter Results * SCAN - LABS (05/22/2016 12:00 AM CDT) Narrative 05/22/2016 12:00 AM CDT Ordered by an unspecified provider. us Historical Provider Final Res ult * SCAN - LABS (04/16/2016 12:00 AM DENTAL NURSE) Narrative 04/16/2016 12:00 AM DENTAL NURSE Ordered by an unspecified provider. us Historical [...] COVID: Suspected 02/24/2020 02/24/2020 02/26/2020 10:36 PM DENTAL NURSE Respiratory Infection (ABIGAIL), contact + droplet Comment:Automatically added due to negative COVID-19 result. 02/26/2020 02/26/2020 03/11/2020 3:0 7 AM DENTAL NURSE COVID: Suspected 05/13/2020 05/13/2020 05/14/2020 12:15 PM CDT COVID: Suspected 03/06/2021 03/06/2021 03/07/2021 6:03 AM DENTAL NURSE COVID: Suspected 05/23/2021 05/23/2021 05/24/2021 3:05 AM [...] documented as of this encounter Care Teams Professor Of Surgery Relationship Specialty Start Date End Date Bharat Rushing MD PCP - General Family Medicine 05/26/18 11/19/21 Bhavya Zimmerman PA PCP - General Family Medicine 11/20/21 11/14/22 Tom Alfred MD PCP - General Family Medicine 11/15/22 Aakash Cantu MD Referring Physician Gastroenterology 01/14/18 documented as of this encounter
--- OUTSIDE RECORDS SUMMARY | 2024-04-10 13:55 | XMS_ITS | Encounter Summary ---
Author Organization [facility] Facility Care Team Providers Care Registered Occupational Therapist Name Role Phone Bharat Rushing MD Primary Care Provider [phone] Aakash Cantu MD Unavailable [phone] Bhavya Zimmerman Primary Care Provider + Tom Alfred MD Primary Care Provider [phone] Encounter Details Date Type Department Care Team (Latest Contact Info) Description 05/03/2016 Orders Only [facility] CLINCONV Provider, MD Oli [address] [place] [address] Social History Tobacco Use Types Packs/Day Years Used Date Smoking Tobacco: Smoker, Current Status Unknown Alcohol Use Standard Drinks/Week Comments No 0 (1 standard drink = 0.6 oz pur e alcohol) Comments Unknown Sex and Gender Information Value Date Recorded Sex Assigned at Not on file Legal Sex Female 2:03 AM PARK ACTIVITIES COORDINATOR Gender Identity Female 02/26/2020 12:09 PM PARK ACTIVITIES COORDINATOR Sexual Orientation Straight 02/26/2020 12 :09 PM PARK ACTIVITIES COORDINATOR documented as of this encounter Plan of Treatment Not on file documented as of this encounter Procedures Procedure Name Priority Date/Time Associated Diagnosis Comments CARDIOLOGY REPORT 05/03/2016 12: 00 AM PARK ACTIVITIES COORDINATOR CARDIOLOGY REPORT 05/03/2016 12: 00 AM PARK ACTIVITIES COORDINATOR CARDIOLOGY REPORT 05/03/2016 12: 00 AM PARK ACTIVITIES COORDINATOR documented in this encounter Results * CARDIOLOGY REPORT (05/03/2016 12:00 AM PARK ACTIVITIES COORDINATOR) Anatomical Region Laterality Modality Other Narrative 05/03/2016 12:00 AM PARK ACTIVITIES COORDINATOR Ordered by an unspecified provider. Historical Provider MD CV CARDIAC SERVICES PROCE DURES Final Result * CARDIOLOGY REPORT (05/03/2016 12:00 AM PARK ACTIVITIES COORDINATOR) Anatomical Region Laterality Modality Other Narrative 05/03/2016 12:00 AM PARK ACTIVITIES COORDINATOR Ordered by an unspecified provider. [facility] Provider MD CV CARDIAC SERVICES PROCE DURES Final Result * CARDIOLOGY REPORT (05/03/2016 12:00 AM PARK ACTIVITIES COORDINATOR) Anatomical Region Laterality Modality Other Narrative 05/03/2016 12:00 AM PARK ACTIVITIES COORDINATOR Ordered by an unspecified provider. [facility] Provider CV CARDIAC SERVICES PROCE DURES Final Result documented in this encounter Visit Diagnoses Not on filedocumented in this encounter Additional Health Concerns Infection Onset Date Last Indicated Resolved Time MRSA Comment:LT FOOT '. 04/02/2012 04/01/2012 10/12/2020 5:00 AM CDT VRE Comment:Germ watcher auto flagging 10/05/2013 11/29/201610/12 5:00 AM CDT C. difficile Comment:08/11/2015 08/10/2015 06/25/2021 2:56 PM C DT COVID: Suspected 02/24/2020 02/24/2020 02/26/2020 10:36 PM PARK ACTIVITIES COORDINATOR Respiratory Infection (ABIGAIL), contact + droplet Comment:Automatically added due to negative COVID-19 result. 02/26/2020 02/26/2020 03/11/2020 3:0 7 AM PARK ACTIVITIES COORDINATOR COVID: Suspected 05/13/2020 05/13/2020 05/14/2020 12:15 PM CDT COVID: Suspected 03/06/2021 03/06/2021 03/07/2021 6:03 AM PARK ACTIVITIES COORDINATOR COVID: Suspected 05/23/2021 05/23/2021 05/24/2021 3:05 AM CDT COVID: Suspected 05/25/2021 05/25/2021 05/26/2021 3:05 AM CDT COVID: Suspected 05/25/2021 05/25/2021 05/26/2021 6:42 AM CDT Rotavirus suspected 08/01/2023 08/01/2023 08/03/19 3:05 AM CDT Norovirus suspected 08/01/2023 08/01/2023 08/03/19 3:05 AM CDT C. difficile suspected 08/01/2023 08/01/202308/02 3:05 AM CDT COVID: Suspected 10/20/2023 10/20/2023 10/20/2023 7:07 PM CDT documented as of this encounter Care Teams Registered Occupational Therapist Relationship Specialty Start Date End Date Bharat Rushing MD PCP - General Family Medicine 05/26/18 11/19/21 Bhavya Zimmerman PA PCP - General Family Medicine 11/20/21 11/14/22 Tom Alfred MD PCP - General Family Medicine 11/15/22 Aakash Cantu MD Referring Physician Gastroenterology 01/14/18 documented as of this encounter
--- OUTSIDE RECORDS SUMMARY | 2024-04-10 13:55 | XMS_ITS | Encounter Summary ---
Author Organization [facility] Facility Care Team Providers Care Survey Researcher Name Role Phone Bharat Rushing MD Primary Care Provider [phone] Aakash Cantu MD Unavailable [phone] Bhavya Zimmerman Primary Care Provider + Tom Alfred MD Primary Care Provider [phone] Encounter Details Date Type Department Care Team (Latest Contact Info) Description 04/23/2016 Orders Only [facility] CLINCONV Provider, MD Oli [address] [place] [address] Social History Tobacco Use Types Packs/Day Years Used Date Smoking Tobacco: Smoker, Current Status Unknown Alcohol Use Standard Drinks/Week Comments No 0 (1 standard drink = 0.6 oz pur e alcohol) Comments Unknown Sex and Gender Information Value Date Recorded Sex Assigned at Not on file Legal Sex Female 2:03 AM CHANGE CONTROL MANAGER Gender Identity Female 02/26/2020 12:09 PM CHANGE CONTROL MANAGER Sexual Orientation Straight 02/26/2020 12 :09 PM CHANGE CONTROL MANAGER documented as of this encounter Plan of Treatment Not on file documented as of this encounter Procedures Procedure Name Priority Date/Time Associated Diagnosis Comments PROCEDURE - RESULT 04/23/2016 12 :00 AM CHANGE CONTROL MANAGER documented in this encounter Results * PROCEDURE - RESULT (04/23/2016 12:00 AM CHANGE CONTROL MANAGER) Narrative 04/23/2016 12:00 AM CHANGE CONTROL MANAGER Ordered by an unspecified provider. us Historical [...] COVID: Suspected 02/24/2020 02/24/2020 02/26/2020 10:36 PM CHANGE CONTROL MANAGER Respiratory Infection (ABIGAIL), contact + droplet Comment:Automatically added due to negative COVID-19 result. 02/26/2020 02/26/2020 03/11/2020 3:0 7 AM CHANGE CONTROL MANAGER COVID: Suspected 05/13/2020 05/13/2020 05/14/2020 12:15 PM CDT COVID: Suspected 03/06/2021 03/06/2021 03/07/2021 6:03 AM CHANGE CONTROL MANAGER COVID: Suspected 05/23/2021 05/23/2021 05/24/2021 3:05 [...] documented as of this encounter Care Teams Survey Researcher Relationship Specialty Start Date End Date Bharat Rushing MD PCP - General Family Medicine 05/26/18 11/19/21 Bhavya Zimmerman PA PCP - General Family Medicine 11/20/21 11/14/22 Tom Alfred MD PCP - General Family Medicine 11/15/22 Aakash Cantu MD Referring Physician Gastroenterology 01/14/18 documented as of this encounter
--- OUTSIDE RECORDS SUMMARY | 2024-04-10 13:55 | XMS_ITS | Continuity of Care Document ---
Author Organization [facility] Address [address] [place] [address] [address] [place] [address] Phone Care Team Providers Care Measurement Supervisor Name Role Phone Maria Del Rosario FIELDS MD, Toy Unavailable Unavailable Allergies, Adverse Reactions, Alerts Substance Reaction Status Criticality levofloxacin Active No Information Penicillins Active No Information Medications Medication Instructions Dosage Effective Dates (start - stop) Status Comments Prozac 10 mg capsule take 2 capsule (20MG) by oral route every day 20 MG - Active Ambien 5 mg tablet take 2 tablet (10MG) by oral route every day at bedtime 10 MG - Active Creon 12,000-38,000-60,00 0 unit capsule,delayed release take 2 capsule by oral route 3 times every day with meals and 1 capsule with each snack 2.00 capsule - Active Durezol 0.05 % Eye Drops instill 1 drop by ophthalmic route 4 times every day mm 1 drop - Active Bromday 0.09 % Eye Drops instill 1 drop by ophthalmic route 2 times every day into both eyes - Active Lotemax BUCCAL ADH. PATCH - Active Procedures Procedure Date POSTOP FOLLOW-UP VISIT POSTOP FOLLOW-UP VISIT CATARACT SURG W/IOL, 1 STAGE OFFICE/OUTPATIENT VISIT, NEW OPHTHALMIC BIOMETRY OPHTHALMIC BIOMETRY SPECIAL EYE EXAM, INITIAL SPECIAL EYE EXAM, INITIAL Advance Directives Directive Yes / No Effective Date File Name No Information Encounters Encounter Description Practice Location Reason(s) For Visit Diagnoses Date Provider Providers Copied on Encounter [facility], [id number] [place] [address] [address], [place], [place], [id number], tel:[phone] [facility] No Information 3 Maria Del Rosario Yeager. [address], [address], [place], [place], [id number] , [place]. tel:[phone] Referring Provider: Toy Jovel, [address], [place], [place], [id number]. tel:[phone] [facility], [address] [place] [address], [id number], tel:[phone] [facility]PH CONSULT BUZZ FINK blurry vision (chief complaint) Pain (chief complaint) Lens replaced by other means 3 Maria Del Rosario Yeager. [address], [address], [place], [place], [id number] , . tel:[phone] [facility], [address] [place] [address], [id number], tel:[phone] [facility] No Information 3 Maria Del Rosario Yeager. [address], [place], [id number] , [place]. tel:[phone] Referring Provider: Toy Mix MD P, [address], [place], [place], [id number]. tel:[phone] OFFICE/OUTPA TIENT VISIT, [facility], [address] [place] [address], [id number], tel:[phone] [facility] No Information 3 Maria Del Rosario Yeager. [address], [address] [place], [place], [id number] , [place]. tel:[phone] Referring Provider: Toy Jovel, [address], [place], [place], [id number]. tel:[phone] Family History Family Member Type Diagnosis Age At Onset No Information Payers Payer name Insurance type Covered constitution party ID Authoriza tion(s) No Information Social History Type Description Quantity Date Captured Comments Sex Female Smoking Status No Information Chief Complaint And Reason For Visit No Information Plan Of Treatment Date Type Action Status No Information History Of Present Illness Encounter Date Complaint History Of Prese nt Illness No Information Instructions Date Instruction Additional Infor bill Lens replaced by oth er means OD - Continue Durezol QIDStop BesivanceGave pt sample of Prolensa, Qday.F/U with [facility] Dr. Finnegan in one week Related to Lens replaced by other means Assessments Type Assessment Date No Information
== END 2024-04-10 13:45 | disposition home or self-care (01) ==
PROVIDERS: PCP Family Medicine; Visit Provider Registered Nurse
DX: M79.602 Pain in left arm (principal); M25.512 Pain in left shoulder
CPT/HCPCS: 73030; 73060

== ENCOUNTER 2024-09-17 10:01 | Outpatient (CLI) | payer MEDICARE, SELFPAY ==
--- NOTE | ~2024-09-17 | MR_ITS ---
EXAMINATION: MR cervical spine wo con DATE: 09/17/2024 10:33 INDICATION: Cervical radiculopathy TECHNIQUE: Magnetic resonance imaging (MRI) of the cervical spine was performed without intravenous c ontrast. Sequences included sagittal T2-weighted FSE, sagittal T2-weighted FS FSE, sagittal T1-weight ed FSE, axial MERGE and axial T2-weighted FSE. COMPARISON: None FINDINGS: 1 mm anterolisthesis C4 on C5 and 2 mm retrolisthesis C5 on C6. Vertebral body heights are normal. Bone marrow signal intensity is normal. Moderate disc height loss at C5-C6 and mild disc height loss at C4-C5 and C6-C7. Cord signal intensity is normal. Cervical soft tissues are unremarkable. The foll owing disc levels are specifically discussed: C2-C3: The disc does not extend beyond the endplate margin. There is no uncovertebral joint osteoarth ritis. There is mild left and moderate right facet joint osteoarthritis. There is no neural foraminal stenosis. There is no central canal stenosis. C3-C4: Disc is mildly bulging. There is mild bilateral uncovertebral joint osteoarthritis. There is m ild right and severe left facet joint osteoarthritis. There is mild left neural foraminal stenosis. T here is no central canal stenosis. C4-C5: Disc is mildly bulging. There is mild right and moderate left uncovertebral joint osteoarthrit is. There is moderate right and severe left facet joint osteoarthritis. There is mild right and moder ate left neural foraminal stenosis. There is mild central canal stenosis. C5-C6: Small posterior disc osteophyte complex There is moderate right and severe left uncovertebral joint osteoarthritis. There is mild to moderate right and severe left facet joint osteoarthritis. The re is moderate bilateral neural foraminal stenosis. There is mild central canal stenosis. C6-C7: Posterior disc osteophyte complex with superimposed annular fissure. There is mild to moderate left and moderate right uncovertebral joint osteoarthritis. There is moderate bilateral facet joint osteoarthritis. There is mild left and moderate right neural foraminal stenosis. There is no central canal stenosis. C7-T1: The disc does not extend beyond the endplate margin. There is no uncovertebral joint osteoarth ritis. There is moderate left and moderate to severe right facet joint osteoarthritis. There is mild right neural foraminal stenosis. There is no central canal stenosis. IMPRESSION: 1. Mild to moderate cervical spondylosis. Reviewed, dictated and finalized at location A.
== END 2024-09-17 10:02 | disposition home or self-care (01) ==
LOC: GOSHIMG 10:02
PROVIDERS: PCP Pain Medicine Pain Medicine; Visit Provider Registered Nurse
DX: M47.22 Other spondylosis with radiculopathy, cervical region (principal)
CPT/HCPCS: 72141